=== PATIENT | male | born 1955 | race Caucasian/White ===

== ENCOUNTER 2017-02-27 14:02 | Inpatient (IN) | payer MEDICARE ==
--- OUTSIDE RECORDS SUMMARY | 2017-02-27 14:05 | XMS | Clinical Summary ---
:1955 Author Organization [facility] Address [address] [place] [address] Phone Care Team Providers Name Role Phone , Primary Care Provider Unavailable Allergies Not on File Current Medications Not on file Active Problems Not on file Social History Tobacco Use Types Packs/Day Years Used Date Never Assessed Sex Assigned at Date Recorded Not on file Last Filed Vital Signs Not on file Plan of Treatment Not on file Results Not on filefrom Last 3 Months
[2017-02-27] MEDS ORDERED: Lorazepam 2 MG/ML VIAL ONE (14:25)
[2017-02-27 14:48] LABS: #Lymphocytes 0.7 thou/uL (1.20-3.40); #Monocytes 0.5 thou/uL (0.11-0.59); #Neutrophils 2.9 thou/uL (1.40-6.50); %Basophils 0.1 % (0.0-1.0); %Eosinophils 0.2 % (0.0-10.0); %Monocytes 11.7 % (0.0-10.0); Hematocrit 35.3 % (42.0-52.0); Red Blood Cell (RBC) Count 3.59 mill/uL (4.70-6.10)
[2017-02-27 14:59] LABS: ALT (SGPT) 20 U/L (8-55); AST (SGOT) 40 U/L (5-34); Alkaline Phosphatase 94 U/L (40-150); Anion Gap 21 mmol/L (10-20); BUN (Urea Nitrogen) 8 mg/dL (8.4-25.7); Bilirubin, Total 0.8 mg/dL (0.2-1.2); Calc. Creatinine Clearance 0 mL/min (70-130); Calcium 9.6 mg/dL (7.8-10.44); Carbon Dioxide 22 mmol/L (23-31); Chloride 100 mmol/L (98-107); Estimated GFR-MDRD 75; Globulin 3.8 g/dL (2.4-3.5); Lipase 46 U/L (8-78); Protein, Total 7.6 g/dL (5.8-8.1)
--- NOTE | 2017-02-27 15:12 | RAD ---
PORTABLE CHEST 1 VIEW: Date: 02/27/17 Time: 1459 hours HISTORY: Bilateral lower extremity edema. FINDINGS: Comparison made with exam of 10/25/16. The heart size is normal. The aorta is tortuous. No focal areas of consolidation, pneumothorax, mikey k pulmonary edema, or pleural effusions are seen. IMPRESSION: No acute process. POS: OFF
[2017-02-27] MEDS ORDERED: Magnesium Sulfate 2 GM/100 ML BAG ONE (15:17)
[2017-02-27] MEDS ORDERED: Folic Acid 1 MG TAB ONE (15:17)
[2017-02-27] MEDS ORDERED: Bisacodyl 5 MG TAB PO PRN (16:48)
[2017-02-27] MEDS ORDERED: Senokot 8.6 MG TAB PO PRN (16:48)
[2017-02-27] MEDS ORDERED: Ondansetron HCl/PF 4 MG/2 ML Vial IVP PRN (16:48)
[2017-02-27] MEDS ORDERED: Mag-Al 1200 mg/1200 mg/30 ML UDCUP PO PRN (16:48)
[2017-02-27] MEDS ORDERED: Acetaminophen 325 MG TAB PO PRN (16:48)
[2017-02-27] MEDS ORDERED: Insulin Regular 300 UNITS/3 ML VIAL SC PRN (16:50)
[2017-02-27] MEDS ORDERED: Dextrose 50% Abboject 50 ML SYRINGE SLOW IVP PRN (16:50)
[2017-02-27] MEDS ORDERED: Dextrose 5% in Water 1,000 ML IV PRN (16:50)
[2017-02-27 16:58] LABS: Bilirubin Negative (Negative); Blood, Urine Negative (Negative); Glucose, Urine (Dipstick) 250 mg/dL (Negative); Ketone, Urine Negative (Negative); Nitrite Negative (Negative); Protein, Urine (Dipstick) Negative (Neg-Trace); Urobilinogen 0.2 mg/dL (0.2-1.0)
[2017-02-27 17:00] LABS: Bacteria/HPF None Seen HPF (None Seen); Hyaline Casts/LPF 0-3 HYALINE CAST LPF (0-3 Hyaline); RBC/HPF 0-3 HPF (0-3); Squamous Epithelial 0-3 HPF (0-3); WBC/HPF 0-3 HPF (0-3)
[2017-02-27 19:36] LABS: Troponin I 0.013 ng/mL (< 0.028)
[2017-02-27] MEDS ORDERED: traZODone HCl 50 MG TAB PO SCH (21:15)
[2017-02-27] MEDS: Famotidine 20 MG TAB PO SCH (22:01)
[2017-02-27] MEDS: Sodium Chloride 0.9% 1,000 ML IV SCH (22:01)
[2017-02-27] MEDS ORDERED: Gabapentin 300 MG CAP PO SCH (22:30)
[2017-02-27] MEDS ORDERED: Atenolol 50 MG TAB PO SCH (22:30)
[2017-02-27 22:43] LABS: Troponin I 0.018 ng/mL (< 0.028)
--- NOTE | 2017-02-28 05:50 | HP ---
CHIEF COMPLAINT: Tremors for the past couple of days. HISTORY OF PRESENT ILLNESS: This is a 61-year-old gentleman with a past medical history significant for alcohol abuse as well as hypertension, who presents to the hospital due tremors has been going on for the past couple of days. The patient states that he has been suffering with alcohol abuse fo r many, many years now. The patient states that he checked himself into [facility] approximately a couple of months ago in [place]. He states that he was there for a dot h and was released approximately 2 weeks ago. He states that he was doing well up until last where he was cleaning out his house and found some alcohol in his kitchen and at that point, deci ded to consume it. The patient states that it was not a lot, but there was some in the bottle for w hich he consumed. He states that approximately a couple of days later he began having tremors that began to get worse and was persistent. Because of that, he decided to come to the hospital for furt her evaluation and management. He denies any sweating, palpitations, confusion, dizziness, or any s yncopal episode. He also denies any nausea, vomiting, or diarrhea. Of note, the patient states that he has not been intubated in the past for alcohol withdrawals. PAST MEDICAL HISTORY: As stated. See history of present illness. Diabetes as well as diabetic liz ropathy. SOCIAL HISTORY: The patient as stated is an alcohol abuser had recently stopped approximately coupl e of months ago before relapsing few days ago. Denies any tobacco or recreational drug use. FAMILY HISTORY: Significant for hypertension. PAST SURGICAL HISTORY: Tonsillectomy as well as a gastric sleeve at 2010 and a left hip arthroplast y. HOME MEDICATIONS: treated at this time. ALLERGIES: No known drug allergies. REVIEW OF SYSTEMS: A 14-point review of systems was reviewed and was negative other than what was m entioned in the HPI. PHYSICAL EXAMINATION: VITAL SIGNS: Blood pressure is 114/70 was as high as 190s initially, but has improved to 114, heart rate is 81, respiratory rate is 18, temperature was 98.4. Patient is satting 95% oxygen on room ai r. GENERAL: The patient was in no apparent distress, was lying comfortably on the bed. Alert, awake, oriented x3. Significant tremors could be appreciated of his upper extremities. HEENT: Head: Normocephalic, atraumatic. Eyes: Pupils are round and reactive to light. Extraocul ar muscles were intact. Conjunctivae was pink. Sclerae was nonicteric. Mouth: Oral mucosa is pin k and moist. No erythema was noted. NECK: Soft and supple. No JVD, carotid bruits, or lymphadenopathy. CARDIOVASCULAR: Regular rate and rhythm. S1 and S2 sounds are heard. No S3, no S4, or murmurs. RESPIRATORY: Clear to auscultation bilaterally. No added sounds. ABDOMEN: Bowel sounds, soft, nontender, nondistended. EXTREMITIES: Pulses were 2+ both dorsalis and radial pulse. No pitting edema could be appreciated. Patient did have multiple toes amputated on right foot. LABORATORY AND DIAGNOSTIC DATA: White blood cell count 4.0, hemoglobin 12.0, hematocrit is 35.3, pl atelet count was 114,000, sodium was 138, potassium was 4.6, chloride was 100, bicarbonate was 22, B UN was 8, creatinine was 1.01, glucose was 232, phosphorus was 3.3, magnesium was 1.0, AST was 40, A LT was 20. CK-MB was 9.4 and troponin was 0.010. Chest x-ray did not show any acute abnormalities. ASSESSMENT AND PLAN: 1. Tremor secondary to alcohol withdrawals. Currently, hemodynamically stable. Patient is high ri sk for going into DTs. Patient has not been intubated in the past as stated. We will monitor the p atient closely. We will place the patient on telemetries. We will start the patient on CIWA protoc ol and monitor closely and keep a low threshold for intubation if required. We will also start the patient on IV fluids and banana bag. Start the patient on folate and thiamine. Fall precautions. Continue to application counselor the patient on alcohol cessation. The patient appeared to be doing very well an d had the right mindset about going into rehabilitation before this occurring, so we will continue t o support the patient as much as possible. 2. Thrombocytopenia secondary to alcohol abuse. We will monitor. 3. Hypomagnesium secondary to history of alcohol abuse with electrolyte replacement protocol. 4. Diabetes. We will place patient on sliding scale insulin protocol. 5. Elevated CK-MB, possibly secondary to the tremors. We will monitor accordingly at this time, th ere is no concern for any cardiac issues at this time. 6. Hypertension, currently controlled, p.r.n. blood pressure medications as needed. 7. Deep venous thrombosis prophylaxis. We will place the patient on Lovenox.
[2017-02-28 06:08] LABS: #Eosinphils 0.1 thou/uL (0.0-0.7); #Lymphocytes 1.2 thou/uL (1.20-3.40); #Monocytes 0.4 thou/uL (0.11-0.59); #Neutrophils 1.5 thou/uL (1.40-6.50); %Basophils 0.1 % (0.0-1.0); %Eosinophils 3.6 % (0.0-10.0); %Lymphocytes 37.3 % (21.0-51.0); %Monocytes 12.1 % (0.0-10.0); Hematocrit 38.5 % (42.0-52.0); Mean Platelet Volume 7.3 fL (7.4-10.4); Red Blood Cell (RBC) Count 3.86 mill/uL (4.70-6.10); White Blood Cell (WBC) Count 3.1 thou/uL (4.8-10.8)
[2017-02-28] MEDS: Sodium Chloride 0.9% 1,000 ML IV SCH ×2 (06:16→11:30)
[2017-02-28 06:25] LABS: Anion Gap 14 mmol/L (10-20); BUN (Urea Nitrogen) 7 mg/dL (8.4-25.7); Calc. Creatinine Clearance 103 mL/min (70-130); Carbon Dioxide 25 mmol/L (23-31); Chloride 103 mmol/L (98-107); Estimated GFR-MDRD 89; Magnesium 1.6 mg/dL (1.6-2.6)
[2017-02-28 06:37] LABS: Critical Call CKMBM RESULT DECREASING
[2017-02-28] MEDS ORDERED: FLU VACC QS2017-18 36 mo. & older 0.5 ML SYRINGE IM ONE (09:00)
[2017-02-28] MEDS ORDERED: Gabapentin 300 MG CAP PO SCH (09:00)
[2017-02-28] MEDS ORDERED: MULTIVITAMIN PO SCH (09:00)
[2017-02-28] MEDS: Aspirin 81 mg Enteric Coated Tablet PO SCH (09:24)
[2017-02-28] MEDS: glyBURIDE 5 MG TAB PO SCH (09:24)
[2017-02-28] MEDS: Atenolol 50 MG TAB PO SCH ×2 (09:25→20:52)
[2017-02-28] MEDS: Folic Acid 1 MG TAB PO SCH (09:26)
[2017-02-28] MEDS: Famotidine 20 MG TAB PO SCH ×2 (09:27→20:52)
[2017-02-28] MEDS: Enoxaparin Sodium 40 MG/0.4 ML SYRINGE SC SCH (09:27)
[2017-02-28] MEDS: Gabapentin 300 MG CAP PO SCH ×3 (09:27→20:52)
[2017-02-28] MEDS: Multivit, Therapeutic 1 TAB PO SCH (09:27)
--- NOTE | 2017-02-28 11:21 | PDOC.PN ---
- Subjective Encounter Start Date: 02/28/17 Encounter Start Time: 11:19 Subjective: feels shaky and cold -: denies any chest pain/sob - Objective MAR Reviewed: Yes Vital Signs & Weight: Vital Signs (12 hours) Temp Pulse Resp BP BP Pulse Ox 02/28/17 09:35 99.2 F 62 18 170/96 H 92 L 02/28/17 09:25 62 170/96 H 02/28/17 08:00 99.2 F 62 18 170/96 H 92 L 02/28/17 04:00 98.0 F 110 H 18 158/74 H 92 L 02/27/17 23:42 99.0 F 69 18 165/77 H 92 L Weight Weight 183 lb I&O: 02/27/17 02/28/17 03/01/17 06:59 06:59 06:59 Intake Total 1980 Output Total 800 Balance 1180 Result Diagrams: 02/28/17 05:43 02/28/17 05:43 Additional Labs: Accuchecks 02/28/17 05:38 POC Glucose 113 H Laboratory Tests 02/28/17 05:43 Magnesium 1.6 Radiology Reviewed by me: Yes (CXR- no CHF/infiltrates) Phys Exam - Physical Examination tremulous but awake and alert HEENT: PERRLA, moist MMs, sclera anicteric, oral pharynx no lesions Neck: no nodes, no JVD, supple, full ROM Respiratory: no wheezing, no rales, no rhonchi, clear to auscultation bilateral Cardiovascular: RRR, no significant murmur Gastrointestinal: soft, non-tender, no distention, positive bowel sounds Musculoskeletal: no edema, pulses present Neurological: non-focal, normal sensation, moves all 4 limbs Psychiatric: normal affect, A&O x 3 Skin: no rash Dx/Plan (1) Alcohol withdrawal syndrome Code(s): F10.239 - ALCOHOL DEPENDENCE WITH WITHDRAWAL, UNSPECIFIED Status: Acute Qualifiers: Complication of substance-induced condition: uncomplicated Qualified Code(s ): F10.230 - Alcohol dependence with withdrawal, uncomplicated (2) Chronic alcohol use Code(s): F10.10 - ALCOHOL ABUSE, UNCOMPLICATED Status: Chronic (3) History of prostate cancer Code(s): Z85.46 - PERSONAL HISTORY OF MALIGNANT NEOPLASM OF PROSTATE Status: Chronic Comment: Encouraged to continue with urology outpatient (4) Hypertension Code(s): I10 - ESSENTIAL (PRIMARY) HYPERTENSION Status: Chronic Qualifiers: Hypertension type: essential hypertension Qualified Code(s): I10 - Essential (primary) hypertension (5) Pancytopenia Code(s): D61.818 - OTHER PANCYTOPENIA Status: Chronic Comment: due to chronic ETOG abuse (6) Hypomagnesemia Code(s): E83.42 - HYPOMAGNESEMIA Status: Resolved - Plan out of bed/ambulate Add ASE protocol. PRN Ativan.Librium.monitor symptoms. -: cont Thiamine,FA,MV.home meds restarted -: wound care for chronic feet wounds due to DM -: restart Glipizide. add ISS ,accuchecks. -: stable. am labs * . Review of Systems - Review of Systems Constitutional: negative: Fever, Chills, Sweats, Weakness, Malaise, Other Respiratory: negative: Cough, Dry, Shortness of Breath, Hemoptysis, SOB with Excertion, Pleuritic Pain, Sputum, Wheezing Cardiovascular: negative: Chest Pain, Palpitations, Orthopnea, Paroxysmal Noc. Dyspnea, Edema, Light Headedness, Other Gastrointestinal: negative: Nausea, Vomiting, Abdominal Pain, Diarrhea, Constipation, Melena, Hematochezia, Other Genitourinary: negative: Dysuria, Frequency, Incontinence, Hematuria, Retention , Other Musculoskeletal: negative: Neck Pain, Shoulder Pain, Arm Pain, Back Pain, Hand Pain, Leg Pain, Foot Pain, Other Neurological: negative: Weakness, Numbness, Incoordination, Change in Speech, Confusion, Seizures, Other - Medications/Allergies Allergies/Adverse Reactions: Allergies Allergy/AdvReac Type Severity Reaction Status Date / Time No Known Drug Allergies Allergy Verified 02/14/16 17:27 Medications: Current Medications Acetaminophen (Tylenol) 650 mg PO Q6H PRN PRN Reason: Headache/Fever or Pain Al Hydroxide/Mg Hydroxide (Maalox) 30 ml PO Q6H PRN PRN Reason: Heartburn or Indigestion Aspirin (Ecotrin) 81 mg PO DAILY [facility] Last Admin: 02/28/17 09:24 Dose: 81 mg Atenolol (Tenormin) 50 mg PO BID [facility] Last Admin: 02/28/17 09:25 Dose: 50 mg Bisacodyl (Dulcolax) 10 mg PO DAILYPRN PRN PRN Reason: Constipation Chlordiazepoxide HCl (Librium) 25 mg PO TID [facility] Dextrose/Water (Dextrose 50%) 25 gm SLOW IVP PRN PRN PRN Reason: Hypoglycemia Enoxaparin Sodium (Lovenox) 40 mg SC 0900 [facility] Last Admin: 02/28/17 09:27 Dose: 40 mg Famotidine (Pepcid) 20 mg PO BID [facility] Last Admin: 02/28/17 09:27 Dose: 20 mg Folic Acid (Folvite) 1 mg PO DAILY [facility] Last Admin: 02/28/17 09:26 Dose: 1 mg Gabapentin (Neurontin) 300 mg PO TID [facility] Last Admin: 02/28/17 09:27 Dose: 300 mg Glucagon (Glucagon) 1 mg IM PRN PRN PRN Reason: Hypoglycemia Glyburide (Diabeta) 5 mg PO 0730 [facility] Last Admin: 02/28/17 09:24 Dose: 5 mg Hydralazine HCl (Apresoline) 10 mg SLOW IVP Q2H PRN PRN Reason: Blood Pressure Dextrose/Water (D5w) 1,000 mls @ 0 mls/hr IV .Q0M PRN; As Directed PRN Reason: Hypoglycemia Sodium Chloride (Normal Saline 0.9%) 1,000 mls @ 125 mls/hr IV .Q8H [facility] Last Admin: 02/28/17 06:16 Dose: 1,000 mls Insulin Human Regular (Humulin R) 0 units SC .MILD SLIDING SCALE PRN PRN Reason: Mild Correctional Scale Lorazepam (Ativan) 1 mg SLOW IVP Q4H PRN PRN Reason: Anxiety/Agitation Multivitamins (Theragran) 1 tab PO DAILY [facility] Last Admin: 02/28/17 09:27 Dose: 1 tab Ondansetron HCl (Zofran) 4 mg IVP Q6H PRN PRN Reason: Nausea/Vomiting Pantoprazole Sodium (Protonix) 40 mg PO DAILY [facility] Last Admin: 02/28/17 09:27 Dose: 40 mg Senna (Senokot) 2 tab PO HSPRN PRN PRN Reason: Constipation Sodium Chloride (Flush - Normal Saline) 10 ml IVF Q12HR [facility] Sodium Chloride (Flush - Normal Saline) 10 ml IVF PRN PRN PRN Reason: Saline Flush Trazodone HCl (Desyrel) 50 mg PO HS JOCELYNE
[2017-02-28] MEDS: Lorazepam 2 MG/ML VIAL SLOW IVP PRN ×3 (12:22→21:05)
[2017-02-28] MEDS: chlordiazePOXIDE HCl 25 MG CAP PO SCH ×2 (14:31→20:52)
[2017-02-28] MEDS: traZODone HCl 50 MG TAB PO SCH (20:52)
[2017-03-01 05:44] LABS: Anion Gap 15 mmol/L (10-20); BUN (Urea Nitrogen) 13 mg/dL (8.4-25.7); Calc. Creatinine Clearance 95 mL/min (70-130); Calcium 8.6 mg/dL (7.8-10.44); Carbon Dioxide 23 mmol/L (23-31); Chloride 104 mmol/L (98-107); Estimated GFR-MDRD 80
[2017-03-01] MEDS: Aspirin 81 mg Enteric Coated Tablet PO SCH (07:58)
[2017-03-01] MEDS: Folic Acid 1 MG TAB PO SCH (07:59)
[2017-03-01] MEDS: Gabapentin 300 MG CAP PO SCH ×3 (07:59→20:17)
[2017-03-01] MEDS: Famotidine 20 MG TAB PO SCH ×2 (07:59→20:19)
[2017-03-01] MEDS: chlordiazePOXIDE HCl 25 MG CAP PO SCH ×3 (07:59→20:17)
[2017-03-01] MEDS: Atenolol 50 MG TAB PO SCH ×2 (07:59→20:18)
[2017-03-01] MEDS: Multivit, Therapeutic 1 TAB PO SCH (08:00)
[2017-03-01] MEDS ORDERED: glyBURIDE 5 MG TAB PO SCH (08:00)
[2017-03-01] MEDS: Enoxaparin Sodium 40 MG/0.4 ML SYRINGE SC SCH (08:00)
[2017-03-01] MEDS: glyBURIDE 5 MG TAB PO SCH (08:00)
[2017-03-01] MEDS: Lorazepam 2 MG/ML VIAL SLOW IVP PRN ×2 (10:56→18:14)
--- NOTE | 2017-03-01 13:23 | PDOC.PN ---
- Subjective Encounter Start Date: 03/01/17 Encounter Start Time: 13:21 Subjective: had some hallucinations last night per nursing but pt minimizes -: he wants to go home and he very tearful today - Objective MAR Reviewed: Yes Vital Signs & Weight: Vital Signs (12 hours) Temp Pulse Resp BP BP Pulse Ox 03/01/17 12:49 135/78 03/01/17 11:00 97.8 F 67 16 165/78 H 96 03/01/17 08:00 97.8 F 67 16 134/79 95 03/01/17 07:59 70 134/79 03/01/17 07:57 97.6 F 70 16 134/79 95 03/01/17 04:00 97.8 F 69 18 166/78 H 172/84 H 94 L Weight Weight 180 lb 4.8 oz I&O: 02/28/17 03/01/17 03/02/17 06:59 06:59 06:59 Intake Total 3800 Output Total 2200 Balance 1600 Result Diagrams: 02/28/17 05:43 03/01/17 04:36 Additional Labs: Accuchecks 03/01/17 02/28/17 02/28/17 06:01 21:43 20:23 POC Glucose 74 88 55 L* 02/28/17 02/28/17 17:29 16:44 POC Glucose 124 H 54 L* Microbiology 02/27/17 14:42 Venous blood - Right Hand Blood Culture - Preliminary Specimen has been received and culture in progress. No Growth to date. 02/27/17 14:42 Venous blood - Left Hand Blood Culture - Preliminary Specimen has been received and culture in progress. No Growth to date. Laboratory Tests 02/27/17 02/27/17 02/27/17 14:23 14:25 18:57 CK-MB (CK-2) 9.4 H* Troponin I 0.010 0.013 B-Natriuretic Peptide Lipase 46 02/27/17 02/28/17 02/28/17 22:10 05:43 11:34 CK-MB (CK-2) 7.6 H* Troponin I 0.018 B-Natriuretic Peptide 331.5 H Lipase Phys Exam - Physical Examination Constitutional: NAD shaky but AAOX4 HEENT: PERRLA, moist MMs, sclera anicteric, oral pharynx no lesions Neck: no nodes, no JVD, supple, full ROM Respiratory: no wheezing, no rales, no rhonchi, clear to auscultation bilateral Cardiovascular: RRR, no significant murmur Gastrointestinal: soft, non-tender, no distention, positive bowel sounds Musculoskeletal: no edema, pulses present L elbow chr erythema w/o active discharge/wound Neurological: non-focal, normal sensation, moves all 4 limbs Psychiatric: A&O x 3 Deviation from normal: anxious Dx/Plan (1) Alcohol withdrawal syndrome Code(s): F10.239 - ALCOHOL DEPENDENCE WITH WITHDRAWAL, UNSPECIFIED Status: Acute Qualifiers: Complication of substance-induced condition: uncomplicated Qualified Code(s ): F10.230 - Alcohol dependence with withdrawal, uncomplicated (2) Chronic alcohol use Code(s): F10.10 - ALCOHOL ABUSE, UNCOMPLICATED Status: Chronic (3) History of prostate cancer Code(s): Z85.46 - PERSONAL HISTORY OF MALIGNANT NEOPLASM OF PROSTATE Status: Chronic Comment: Encouraged to continue with urology outpatient (4) Hypertension Code(s): I10 - ESSENTIAL (PRIMARY) HYPERTENSION Status: Chronic Qualifiers: Hypertension type: essential hypertension Qualified Code(s): I10 - Essential (primary) hypertension (5) Pancytopenia Code(s): D61.818 - OTHER PANCYTOPENIA Status: Chronic Comment: due to chronic ETOG abuse (6) Hypomagnesemia Code(s): E83.42 - HYPOMAGNESEMIA Status: Resolved (7) Hypoglycemia Code(s): E16.2 - HYPOGLYCEMIA, UNSPECIFIED Status: Acute - Plan out of bed/ambulate, DVT proph w/SCDs cont ASE protocol.clinically better.cont prn ativan & TID Librium. -: check Urine Cx,blood cx given hypoglycemia to r/o infection.no Abx for now -: brandan [place] kevin elater today w HH if arrnaged. -: Pt had good family & friend support * . Review of Systems - Review of Systems Constitutional: negative: Fever, Chills, Sweats, Weakness, Malaise, Other Respiratory: negative: Cough, Dry, Shortness of Breath, Hemoptysis, SOB with Excertion, Pleuritic Pain, Sputum, Wheezing Cardiovascular: negative: Chest Pain, Palpitations, Orthopnea, Paroxysmal Noc. Dyspnea, Edema, Light Headedness, Other Gastrointestinal: negative: Nausea, Vomiting, Abdominal Pain, Diarrhea, Constipation, Melena, Hematochezia, Other Genitourinary: negative: Dysuria, Frequency, Incontinence, Hematuria, Retention , Other Musculoskeletal: negative: Neck Pain, Shoulder Pain, Arm Pain, Back Pain, Hand Pain, Leg Pain, Foot Pain, Other Neurological: negative: Weakness, Numbness, Incoordination, Change in Speech, Confusion, Seizures, Other - Medications/Allergies Allergies/Adverse Reactions: Allergies Allergy/AdvReac Type Severity Reaction Status Date / Time No Known Drug Allergies Allergy Verified 02/14/16 17:27 Medications: Current Medications Acetaminophen (Tylenol) 650 mg PO Q6H PRN PRN Reason: Headache/Fever or Pain Al Hydroxide/Mg Hydroxide (Maalox) 30 ml PO Q6H PRN PRN Reason: Heartburn or Indigestion Aspirin (Ecotrin) 81 mg PO DAILY [facility] Last Admin: 03/01/17 07:58 Dose: 81 mg Atenolol (Tenormin) 50 mg PO BID [facility] Last Admin: 03/01/17 07:59 Dose: 50 mg Bisacodyl (Dulcolax) 10 mg PO DAILYPRN PRN PRN Reason: Constipation Chlordiazepoxide HCl (Librium) 25 mg PO TID [facility] Last Admin: 03/01/17 07:59 Dose: 25 mg Dextrose/Water (Dextrose 50%) 25 gm SLOW IVP PRN PRN PRN Reason: Hypoglycemia Enoxaparin Sodium (Lovenox) 40 mg SC 0900 [facility] Last Admin: 03/01/17 08:00 Dose: 40 mg Famotidine (Pepcid) 20 mg PO BID [facility] Last Admin: 03/01/17 07:59 Dose: 20 mg Folic Acid (Folvite) 1 mg PO DAILY [facility] Last Admin: 03/01/17 07:59 Dose: 1 mg Gabapentin (Neurontin) 300 mg PO TID [facility] Last Admin: 03/01/17 07:59 Dose: 300 mg Glucagon (Glucagon) 1 mg IM PRN PRN PRN Reason: Hypoglycemia Hydralazine HCl (Apresoline) 10 mg SLOW IVP Q2H PRN PRN Reason: Blood Pressure Dextrose/Water (D5w) 1,000 mls @ 0 mls/hr IV .Q0M PRN; As Directed PRN Reason: Hypoglycemia Insulin Human Regular (Humulin R) 0 units SC .MILD SLIDING SCALE PRN PRN Reason: Mild Correctional Scale Lorazepam (Ativan) 1 mg SLOW IVP Q4H PRN PRN Reason: Anxiety/Agitation Last Admin: 03/01/17 10:56 Dose: 1 mg Multivitamins (Theragran) 1 tab PO DAILY [facility] Last Admin: 03/01/17 08:00 Dose: 1 tab Ondansetron HCl (Zofran) 4 mg IVP Q6H PRN PRN Reason: Nausea/Vomiting Pantoprazole Sodium (Protonix) 40 mg PO DAILY [facility] Last Admin: 03/01/17 07:59 Dose: 40 mg Senna (Senokot) 2 tab PO HSPRN PRN PRN Reason: Constipation Sodium Chloride (Flush - Normal Saline) 10 ml IVF Q12HR [facility] Last Admin: 03/01/17 08:00 Dose: 10 ml Sodium Chloride (Flush - Normal Saline) 10 ml IVF PRN PRN PRN Reason: Saline Flush Last Admin: 02/28/17 12:24 Dose: 10 ml Thiamine HCl (Thiamine) 100 mg PO DAILY [facility] Last Admin: 03/01/17 10:18 Dose: 100 mg Trazodone HCl (Desyrel) 50 mg PO HS [facility] Last Admin: 02/28/17 20:52 Dose: 50 mg
[2017-03-01 15:57] VITALS: BMI 25.8
[2017-03-01] MEDS: traZODone HCl 50 MG TAB PO SCH (20:17)
[2017-03-02 04:24] VITALS: TEMP 98.1
[2017-03-02 05:42] LABS: #Eosinphils 0.1 thou/uL (0.0-0.7); #Lymphocytes 1.1 thou/uL (1.20-3.40); #Monocytes 0.4 thou/uL (0.11-0.59); #Neutrophils 2.6 thou/uL (1.40-6.50); %Basophils 0.6 % (0.0-1.0); %Eosinophils 3.2 % (0.0-10.0); %Lymphocytes 26.7 % (21.0-51.0); %Monocytes 9.3 % (0.0-10.0); Hematocrit 38.1 % (42.0-52.0); Mean Platelet Volume 7.1 fL (7.4-10.4); Red Blood Cell (RBC) Count 3.75 mill/uL (4.70-6.10); White Blood Cell (WBC) Count 4.2 thou/uL (4.8-10.8)
[2017-03-02 05:56] LABS: Anion Gap 14 mmol/L (10-20); BUN (Urea Nitrogen) 16 mg/dL (8.4-25.7); Calc. Creatinine Clearance 104 mL/min (70-130); Calcium 8.4 mg/dL (7.8-10.44); Carbon Dioxide 21 mmol/L (23-31); Chloride 106 mmol/L (98-107); Estimated GFR-MDRD Greater than 90
[2017-03-02] MEDS ORDERED: diphenhydrAMINE HCl/Zinc Acet 2% Cream 28.4 gm Tube TOP PRN (09:06)
[2017-03-02] MEDS: Gabapentin 300 MG CAP PO SCH ×2 (09:19→14:23)
[2017-03-02] MEDS: Atenolol 50 MG TAB PO SCH (09:19)
[2017-03-02] MEDS: Famotidine 20 MG TAB PO SCH (09:19)
[2017-03-02] MEDS: Aspirin 81 mg Enteric Coated Tablet PO SCH (09:19)
[2017-03-02] MEDS: chlordiazePOXIDE HCl 25 MG CAP PO SCH ×2 (09:19→14:23)
[2017-03-02] MEDS: Multivit, Therapeutic 1 TAB PO SCH (09:19)
[2017-03-02] MEDS: Folic Acid 1 MG TAB PO SCH (09:19)
[2017-03-02] MEDS: Enoxaparin Sodium 40 MG/0.4 ML SYRINGE SC SCH (09:20)
[2017-03-02 13:27] VITALS: BP 142/70
--- NOTE | 2017-03-02 17:20 | DIS ---
DATE OF ADMISSION: 02/27/2017 DATE OF DISCHARGE: 03/02/2017 CONDITION AT THE TIME OF DISCHARGE: Stable and improved. PRIMARY CARE PHYSICIAN: Danny Lu MD DISCHARGE DIAGNOSES: 1. Alcohol withdrawal. 2. Anxiety. 3. Chronic thrombocytopenia due to chronic alcohol use. 4. History of prostate cancer. 5. Hypertension. 6. Hypomagnesemia, resolved. 7. Hypoglycemia, resolved. DISCHARGE MEDICATIONS: Ativan 1 mg every 2-4 hours as needed for withdrawal symptoms. Next, taperi ng doses of Librium orally. Resume home medications as follows; Tenormin 50 mg p.o. b.i.d., glyburi de 5 mg daily, gabapentin 300 mg p.o. daily, folic acid 1 mg daily, aspirin 81 mg daily, Protonix 40 mg daily, ferrous sulfate 325 mg daily, and multivitamin daily. CONSULTATIONS: None. PROCEDURES DONE IN THE HOSPITAL: Chest x-ray, which is negative for any effusion, edema or infiltra te upon admission. ADMISSION HISTORY: Mr. Tran is a 61-year-old male with history of alcohol abuse, depressi on, and hypertension, who presented to the ER for complaints of tremor. He unfortunately finished h is rehabilitation, but relapsed when he found a bottle of alcohol cleaning his kitchen. Because of the tremors which were getting worse and were persistent, he presented to the ER. He was hemodynami abbey stable upon presentation. He did have platelet count of 114,000; with a WBC of 4 and hemoglob in of 12 on presentation. CK-MB was 9.4. Troponin was 0.010. Magnesium was 1. He was admitted wi th a presumptive diagnosis of tremors secondary to alcohol withdrawal to prevent DT's. He was admit jessenia initially to telemetry unit and was started on ASE protocol. He had slow improvement. He had s ome episodes of hypoglycemia while in the hospital, was recovered after oral juice, etc. Because of the shaking and trace leukocyte esterase in his urine and the hypoglycemia, urine culture was order ed for him which is pending at this time. His initial urine culture, blood cultures are negative ti ll date. He will follow up with his primary care physician for the final results. He was seen and examined prior to discharge. PHYSICAL EXAMINATION: Include; VITAL SIGNS: Temperature 98.1, pulse rate 98, respirations 20, saturating 99% on room air, blood pr essure 138/71. GENERAL: No acute distress, awake, alert, oriented x3, he is not as shaky as yesterday. He appears to be in good spirits. CHEST: Clear to auscultation without any wheezing, rales or rhonchi. HEART: Rate, rhythm is regular without any murmur, rubs, or gallops. ABDOMEN: Soft, nontender, nondistended with positive bowel sounds. NEUROLOGIC: Nonfocal. LABORATORY EXAMINATION: 1. Blood culture and urine culture negative till date. 2. CBC shows WBCs at 4.2, hemoglobin 12.0 with high MCV and MCH. Platelet count 103,000. Serum ch emistries unremarkable. Discharge plan was discussed with the patient, who verbalized understanding. Home health was arrang ed for him. He has chronic lower extremity diabetic wound. He needs to see his primary care physic case as he has not been seen in a few months to qualify for the home health. The patient was made aw are of this and he will go see Dr. Lu as soon as possible so that home health can continue to ca re for him with physical therapy, occupation therapy, wound care and halfway. The patient h as good family support in the form of his brother and his family and [facility]. He declined offers to go live with his family and he did not qualify for nursing or rehab.
== END 2017-03-02 15:40 | disposition home health service (06) | DRG 897 ==
LOC: ERS 14:02 → 2NO 16:05
PROVIDERS: ADMIT Internal Medicine; ATTEND Internal Medicine
DX: F10.239 Alcohol dependence with withdrawal, unspecified (principal); D61.818 Other pancytopenia; E11.40 Type 2 diabetes mellitus with diabetic neuropathy, unspecified; E11.649 Type 2 diabetes mellitus with hypoglycemia without coma; D69.6 Thrombocytopenia, unspecified; E83.42 Hypomagnesemia; I10 Essential (primary) hypertension; Z98.84 Bariatric surgery status; F41.9 Anxiety disorder, unspecified; G25.2 Other specified forms of tremor; Z85.46 Personal history of malignant neoplasm of prostate; Z23 Encounter for immunization
CPT/HCPCS: 36415; 36416; 71010; 80048; 80053; 81003; 81015; 82553; 83690; 83735; 83880; 84100; 84484; 85025; 87040; 87086; 90471; 90682; 90732; 93005; 96361; 96365; 96366; 96368; 96375; A4216; G0008; G0009; G8978-GP-CI; G8979-GP-CH; J1650; J2060; J3411; J3475; J7050; Q2036

== ENCOUNTER 2017-03-13 08:58 | Inpatient (IN) | payer MEDICARE ==
[2017-03-13] MEDS ORDERED: Lorazepam 2 MG/ML VIAL ONE (09:26)
[2017-03-13] MEDS ORDERED: Metoprolol Tartrate 5 MG/5 ML VIAL ONE (09:35)
[2017-03-13 10:00] LABS: #Monocytes 0.4 thou/uL (0.11-0.59); #Neutrophils 5.4 thou/uL (1.40-6.50); %Basophils 0.6 % (0.0-1.0); %Eosinophils 0.3 % (0.0-10.0); %Monocytes 6.2 % (0.0-10.0); Hematocrit 34.9 % (42.0-52.0); Mean Platelet Volume 6.3 fL (7.4-10.4); Red Blood Cell (RBC) Count 3.44 mill/uL (4.70-6.10); White Blood Cell (WBC) Count 6.9 thou/uL (4.8-10.8)
[2017-03-13 10:15] LABS: ALT (SGPT) 16 U/L (8-55); AST (SGOT) 22 U/L (5-34); Alkaline Phosphatase 108 U/L (40-150); Anion Gap 19 mmol/L (10-20); BUN (Urea Nitrogen) 8 mg/dL (8.4-25.7); Bilirubin, Total 0.4 mg/dL (0.2-1.2); CK (CPK) 194 U/L (30-200); Calc. Creatinine Clearance 0 mL/min (70-130); Calcium 8.7 mg/dL (7.8-10.44); Carbon Dioxide 17 mmol/L (23-31); Chloride 110 mmol/L (98-107); Estimated GFR-MDRD 69; Globulin 3.7 g/dL (2.4-3.5); Lipase 43 U/L (8-78); Protein, Total 7.2 g/dL (5.8-8.1)
[2017-03-13 10:20] LABS: Troponin I Less than 0.010 ng/mL (< 0.028)
--- NOTE | 2017-03-13 10:34 | RAD ---
CHEST 1 VIEW: Date: 03/13/17 HISTORY: Syncope. COMPARISON: Chest 1 view dated 02/27/17. FINDINGS: Heart size is mildly enlarged. There are nodular densities projecting over the right and left mid gaurang ng. There appears to be an old anterior left 5th rib fracture. Heart size upper limits of normal. No focal air space consolidation or pneumothorax. IMPRESSION: 1. Mild cardiomegaly. Otherwise no acute intrathoracic abnormality. 2. Nodular densities projecting over the right upper lobes bilaterally may reflect granulomas. Foll ow-up examination of the chest in 6 months recommended. POS: MED
[2017-03-13] MEDS ORDERED: Vancomycin HCl 1.25 GM, Admixture Fee 1 EACH in Sodium Chloride 0.9% 250 ML 250 ML IVPB SCH (11:15)
[2017-03-13] MEDS ORDERED: Dextrose 5% in Water 1,000 ML IV PRN (13:00)
[2017-03-13] MEDS ORDERED: Dextrose 50% Abboject 50 ML SYRINGE SLOW IVP PRN (13:00)
--- NOTE | 2017-03-13 13:28 | PDOC.EVN ---
Event Note - Event Note Event Note: H&P: [id number] Syncope with Collapse 2/2 LLE Cellulitis with Sepsis, Alcohol withdrawl and resultant Afib with RVR * ECHO * trend cardiac ezymes * consult cardiology * check CT brain * check carotid dopplers * Fall precautions * PT/OT * Blood cxs * Urine cx * Emperic Abx: Vanco and Zosyn * ASE protocol with ativan prn for alcohol withdrwal; MVI/thiamine/folate * start IVFs * check labs in AM B/L RUL Granulomas * f/u outpt DM2 * SSI * f/u accu checks Admit to ICU.
[2017-03-13] MEDS ORDERED: Sodium Chloride 0.9% 1,000 ML IV SCH (13:30)
[2017-03-13] MEDS ORDERED: Loperamide HCl 2 MG CAP PO PRN ×2 (13:54→17:03)
[2017-03-13] MEDS ORDERED: HYDROcodone/Acetaminophen 5/325 mg Tablet PO PRN (14:02)
[2017-03-13] MEDS ORDERED: Acetaminophen 325 MG TAB PO PRN (14:02)
[2017-03-13] MEDS ORDERED: Ondansetron HCl/PF 4 MG/2 ML Vial IVP PRN (14:02)
[2017-03-13 14:26] VITALS: BMI 27.0
[2017-03-13] MEDS: Gabapentin 300 MG CAP PO SCH ×2 (15:51→22:08)
[2017-03-13] MEDS: chlordiazePOXIDE HCl 25 MG CAP PO SCH ×2 (15:51→22:07)
--- NOTE | 2017-03-13 17:47 | ULT ---
ULTRASOUND WITH DOPPLER DUPLEX VENOUS LOWER EXTREMITY LEFT 03/13/17 CPT: 72476 ICD-10-PCS: [id number] HISTORY: Pain, edema. TECHNIQUE: Color flow Doppler, spectral waveform analysis of pulsed Doppler, and linda-scale imaging with compre ssion and augmentation, were used to evaluate the left common femoral, femoral, popliteal, posterior tibial, and superficial femoral, veins; and the proximal portions of the profunda femoral and great er saphenous, veins. FINDINGS: Appropriate compressibility and flow within the imaged deep vein system left lower extremity. IMPRESSION: No DVT. Soft tissue edema. Correlate clinically. POS: [facility]
--- NOTE | 2017-03-13 17:52 | ULT ---
CAROTID ULTRASOUND WITH LLAMAS SCALE AND DOPPLER DUPLEX COLOR FLOW IMAGING SPECTRAL ANALYSIS PERFORMED: CLINICAL INDICATION: Syncope. Collapse. FINDINGS: There is mild intimal thickening atherosclerotic calcification of the carotid arteries. PEAK SYSTOLIC VELOCITY (CM/S): Right CCA 93 Left CCA 100 Right ICA 54 Left ICA 58 There is antegrade flow within the visualized bilateral vertebral arteries. IMPRESSION: 1. No hemodynamically significant stenosis of the right internal carotid artery. 2. No hemodynamically significant stenosis of the left internal carotid artery. POS: GONZÁLEZ
[2017-03-13] MEDS: Piperacillin/Tazobactam 3.375 GM in Sodium Chloride 0.9% 100 ML IVPB SCH ×2 (17:56→23:18)
--- NOTE | 2017-03-13 18:47 | HP ---
DATE OF ADMISSION: 03/13/2017, at 1:18 p.m. CHIEF COMPLAINT: Generalized weakness. HISTORY OF PRESENT ILLNESS: This is a 61-year-old male with a past medical history of alcohol abuse who presented for generalized weakness with syncope and collapse. The patient reports that he has a history of alcohol abuse and he went to [facility] in [place] 1 month ago to complete an alc ohol rehab, but during that one month period, he has had some alcohol intake. He is unable to quant sada. He reports that his last drink was approximately 2 days ago. Today after he had a bowel movem ent, he stood up in his bathroom to reach for his walker and collapsed. He believes that he was unc onscious for approximately 2 hours. Once he woke up, he crawled into the next room to retrieve his cell phone and called 911. EMS transported the patient from his home to the ER today. The patient reports left lower extremity pain and redness and reports this redness has been ongoing for a few days. He does have a history of first and second left toe amputations in 05/2016. In the emergency room, he was found to have AFib with RVR and denied any history of atrial fibrillat ion. The patient does report generalized weakness. Does not report any headaches, blurry vision or troub le with speech. He also denies any urinary symptoms. REVIEW OF SYSTEMS: A 14-point review of systems is negative except as otherwise indicated above in the HPI. PAST MEDICAL HISTORY: 1. Diabetes mellitus type 2 with diabetic neuropathy. 2. Alcohol abuse, status post [facility] in [place] 1 month ago, but lynn s been drinking intermittently since being released. PAST SURGICAL HISTORY: His most recent surgeries were his first and second left toe amputation in 0 05/2016. FAMILY HISTORY: The patient does report a family history of cardiac disease as his brother has 2 ca rdiac stents. SOCIAL HISTORY: The patient does drink alcohol as outlined above. He denies any tobacco or illicit drug use. ALLERGIES AND MEDICATIONS: Reviewed. Please refer to chart for details. PHYSICAL EXAMINATION: VITAL SIGNS: Reviewed, please refer to chart for details. GENERAL: Patient was sitting comfortably in bed when I entered the room in no acute distress. HEENT: Normocephalic and atraumatic. NECK: Supple. No rigidity. LYMPH NODES: No cervical or supraclavicular lymphadenopathy. CARDIOVASCULAR: S1 and S2 are audible, irregularly irregular rhythm and rapid rate of 140. LUNGS: Clear to auscultation bilaterally with no wheezes, rales or rhonchi. ABDOMEN: Soft and nontender. Positive bowel sounds. No guarding, rebound or rigidity. GENITOURINARY: No CVA tenderness bilaterally. No suprapubic tenderness either. MUSCULOSKELETAL: No calf tenderness on the right, but the patient does have a left lower extremity tenderness from the knee down to his toes. He does have first and second toe amputations. He also has left lower extremity edema. SKIN: Aside from the changes of the left lower extremity, it is warm with dry mucous membranes. PSYCHIATRIC: Appropriate, cooperative. NEUROLOGIC: Alert and oriented x2. The patient does not know the year. His judgment appears intac t. Cranial nerves II-XII are grossly intact. LABORATORY AND IMAGING: Reviewed. Please refer the chart for details. ASSESSMENT AND PLAN: This is a 61-year-old male who presented for generalized weakness with syncope and collapse. 1. Syncope and collapse, likely secondary to left lower extremity cellulitis with sepsis and atrial fibrillation with rapid ventricular response in association with alcohol withdrawal. We will check blood and urine cultures, start empiric antibiotics with vancomycin and Zosyn. TSH is within maria alejandra l limits. I will check a CT with and without contrast of the left lower extremity to rule out osteo myelitis. I will check an echocardiogram, consult Cardiology, start Cardizem drip and start BUCK pro tocol with Ativan as need for alcohol withdrawal. The patient's alcohol level was not elevated on a dmission. Fall precautions will be placed. Consult physical therapy and occupational therapy. Sta rt IV fluids and check labs in the morning. 2. Atrial fibrillation with rapid ventricular response secondary to alcohol withdrawal and infectio n as above. Please see above for workup and plan. 3. Bilateral right upper lobe granulomas seen on chest x-ray. We will need close outpatient follow up. 4. Diabetes mellitus. Start sliding scale insulin. Follow up Accu-Cheks a.c. and at bedtime. 5. Physical debility. We will consult PT and OT as above. 6. Admit to ICU.
[2017-03-13] MEDS: Mometasone/Formoterol 120 PUFF INHALER INH SCH (19:09)
[2017-03-13] MEDS: Atenolol 50 MG TAB PO SCH (22:07)
[2017-03-13] MEDS: Clindamycin/D5W 600 MG in Premix Bag 1 BAG IVPB SCH (22:08)
[2017-03-13] MEDS: Lorazepam 1 MG TAB PO PRN (22:10)
--- NOTE | 2017-03-14 03:01 | CON ---
DATE OF CONSULTATION: 03/13/2017 CARDIOLOGY CONSULTATION REASON FOR CONSULTATION: Atrial fibrillation. HISTORY OF PRESENT ILLNESS: Mr. Tran is a 61-year-old man. He presented to the hospital with weakn ess, fatigue, and collapse. Patient recently has been in the hospital with alcohol rehabilitation related to alcohol abuse. He was in the rehab facility for alcohol withdrawal and apparently he has been on for about a month, bu t he did drink some alcohol in the last month. He developed some cellulitis as an outpatient. The day of admission which is today, he stood up and loss of consciousness. He was unconscious for a co uple of hours. When he awoke, he called to the next room, got a cell phone and called 911 they brou ght him here. He is in atrial fibrillation. He was also found to have cellulitis. PAST MEDICAL HISTORY: Multiple infections as outlined by Dr. Fay. PAST MEDICAL HISTORY: 1. Diabetes. 2. Alcohol abuse. PAST SURGICAL HISTORY: He has previous second left toe amputation. FAMILY HISTORY: He does report a family history of cardiac disease and brother with 2 cardiac stent s. SOCIAL HISTORY: Alcohol dependency. MEDICATIONS: He was on atenolol prior to this admission. The medication is also on Naprosyn. He i s currently on diltiazem, who apparently is on atenolol 50 mg twice a day at home, also on Neurontin and insulin. REVIEW OF SYSTEMS: Constitutional: No significant weight gain or loss. Vision: No changes. Hear ing: No changes. Pulmonary: No cough or wheezing. Gastrointestinal: No nausea, vomiting, diarrh ea. Skin: No rashes. Neurologic: No unilateral weakness or numbness. Psychiatric: No unusual d epression or anxiety. Hematologic: No unusual bruising. Genitourinary: No burning with urination . PHYSICAL EXAMINATION: GENERAL: This is a pleasant 61-year-old gentleman looks older than his chronologic age. VITAL SIGNS: Blood pressure 140/80, pulse is 110-130 irregularly irregular, atrial fibrillation. HEENT: Eyes, sclerae nonicteric. Mouth, mucous membranes moist. NECK: Supple, no lymphadenopathy. LUNGS: Clear. CARDIAC: Irregularly irregular. No murmur, rub, or gallop. ABDOMEN: Soft, nontender. EXTREMITIES: No clubbing, cyanosis. There is moderate edema in the left lower extremity, mild on t he right. SKIN: The left extremity, the skin is very warm, even hot, and reddish. PERTINENT LABORATORY AND X-RAY FINDINGS: Hemoglobin is 11.2. Creatinine is 1.08. ASSESSMENT: 1. New-onset atrial fibrillation. 2. Probable cellulitis, possibly some sepsis. 3. History of alcoholism. PLAN: 1. Continue beta blockers. 2. Increase calcium channel blockers. 3. We will need to be anticoagulated. 4. We will give diuretics to see if we can try to get some of the fluid off, that probably will hel p with cellulitis. 5. Blood counts are stable tomorrow. We would likely start full-dose enoxaparin.
[2017-03-14] MEDS: Lorazepam 1 MG TAB PO PRN (04:24)
[2017-03-14 04:54] LABS: #Eosinphils 0.1 thou/uL (0.0-0.7); #Lymphocytes 1.4 thou/uL (1.20-3.40); #Monocytes 0.6 thou/uL (0.11-0.59); #Neutrophils 4.9 thou/uL (1.40-6.50); %Basophils 0.1 % (0.0-1.0); %Lymphocytes 19.5 % (21.0-51.0); %Monocytes 8.2 % (0.0-10.0); Hematocrit 34.2 % (42.0-52.0); Mean Platelet Volume 6.8 fL (7.4-10.4); Red Blood Cell (RBC) Count 3.36 mill/uL (4.70-6.10)
[2017-03-14 05:05] LABS: Anion Gap 12 mmol/L (10-20); BUN (Urea Nitrogen) 7 mg/dL (8.4-25.7); Calc. Creatinine Clearance 104 mL/min (70-130); Calcium 8.4 mg/dL (7.8-10.44); Carbon Dioxide 21 mmol/L (23-31); Chloride 109 mmol/L (98-107); Estimated GFR-MDRD 87; Iron 84 ug/dL (65-175); Magnesium 1.1 mg/dL (1.6-2.6)
[2017-03-14] MEDS: Clindamycin/D5W 600 MG in Premix Bag 1 BAG IVPB SCH ×3 (05:30→21:59)
[2017-03-14] MEDS: Piperacillin/Tazobactam 3.375 GM in Sodium Chloride 0.9% 100 ML IVPB SCH ×3 (05:31→18:31)
[2017-03-14] MEDS: Furosemide 20 MG/2 ML VIAL SLOW IVP SCH ×2 (05:31→14:35)
--- NOTE | 2017-03-14 06:08 | CON ---
DATE OF CONSULTATION: 03/13/2017 HISTORY OF PRESENT ILLNESS: This is a 61-year-old gentleman who comes into the hospital after he lynn d syncopal episode following diarrhea. His left leg has been markedly erythematous and swollen. The patient apparently has a history of heavy drinking, 10 drinks per day. Apparently, he is having withdrawal shakes. Additionally, he said he was wheezing. He has never wheezed like this for a long time. As a chil d, he had asthma. He is a nonsmoker. PAST MEDICAL HISTORY: Pertinent for diabetes, cellulitis, prostate cancer, hypertension. PAST SURGICAL HISTORY: Left hip infected, amputation of his left great toe and small toes. MEDICATIONS FROM HOME: Includes gabapentin, glyburide, and atenolol. He received several antibioti cs from his primary care physician including Omnicef and vitamins. SOCIAL AND FAMILY HISTORY: He used to work in [employer], never been . PHYSICAL EXAMINATION: VITAL SIGNS: Blood pressure 141/92, pulse 80, respiratory rate 18. He is afebrile. CHEST: Decreased breath sounds without any wheezing. CARDIAC: Normal S1, S2. No gallops. ABDOMEN: Soft. No masses. EXTREMITIES: His left leg is swollen and erythematous from the knee all the way down to his ankle. LABORATORY DATA: White count is 6000, H\T\H is 11 and 34, platelet count is 269. Electrolytes are normal. Thyroid function is normal. IMPRESSION: 1. Cellulitis, left leg. 2. Syncope, awaiting carotid Doppler ultrasound. 3. Alcohol abuse, probably he is going to delirium tremens. 4. History of asthma with recent exacerbation. PLAN: I have added clindamycin, continue supportive care, ordered stool for C. diff since he is sti ll having diarrhea. Additionally, I have added Dulera to his regimen. We will follow while in the ICU.
[2017-03-14] MEDS: Mometasone/Formoterol 120 PUFF INHALER INH SCH ×2 (07:01→18:13)
--- NOTE | 2017-03-14 08:18 | CT ---
PRELIMINARY REPORT/[facility]/EMERGENCY AFTER HOURS PROCEDURE: EXAM: CT Head Without Intravenous Contrast CLINICAL HISTORY: 61 years old, male; Signs and symptoms; Syncope and collapse; Patient HX: Syncopal episode TECHNIQUE: Axial computed tomography images of the head/brain without intravenous contrast. COMPARISON: No relevant prior studies available. FINDINGS: Brain: Mild diffuse atrophy. No hemorrhage. No significant white matter disease. No edema. Ventricles: Normal. Bones/joints: Unremarkable. No acute fracture. Soft tissues: Normal. Sinuses: Unremarkable. Mastoid air cells: Unremarkable. No mastoid effusion. IMPRESSION: No acute findings. Thank you for allowing us to participate in the care of your patient. Dictated and Authenticated by: Chan Gonzalez MD 03/14/2017 4:37 AM Central Time ([place] \T\ [place]) FINAL REPORT EMERGENCY AFTER HOURS CT HEAD WITHOUT IV CONTRAST: Date: 03/14/17 HISTORY: Syncope with collapse. COMPARISON: 02/01/16. IMPRESSION: 1. No acute intracranial abnormality is demonstrated. 2. Stable cerebral volume loss. Findings are in agreement with the preliminary report by Janee. POS: GONZÁLEZ
[2017-03-14] MEDS: Ferrous Sulfate 325 MG TAB PO SCH (08:20)
[2017-03-14] MEDS: Atenolol 50 MG TAB PO SCH ×2 (08:20→21:11)
[2017-03-14] MEDS: chlordiazePOXIDE HCl 25 MG CAP PO SCH ×3 (08:21→21:10)
--- NOTE | 2017-03-14 08:21 | CT ---
PRELIMINARY REPORT/[facility]/EMERGENCY AFTER HOURS PROCEDURE: EXAM: CT Left Lower Extremity With Intravenous Contrast CLINICAL HISTORY: 61 years old, male; Signs and symptoms; Other: Osteomyelitis TECHNIQUE: Axial computed tomography images of the left lower extremity with intravenous contrast. CONTRAST: 100 mL of ISOVUE administered intravenously. COMPARISON: No relevant prior studies available. FINDINGS: Bones/joints: No acute bony abnormality is identified. Elongated defect in the medial malleolus with suprajacent periosteal new bone formation may be related to previous injury. Osteopenia with tiny c ortical lucencies most prominent along the proximal and distal aspects of the tibia and fibula witho ut associated soft tissue abnormality or definite erosion. Unremarkable central marrow density. Soft tissues: Diffuse subcutaneous edema. Nonspecific amorphous calcification along the lateral femo ral condyle may be ligamentous. Elliptical fluid collection along the inferior aspect of the patella r tendon ventrally measuring up to 0.6 x 5 cm in transverse dimension. Otherwise, no fluid collection identified. Vasculature: Diffuse arterial calcification without appreciable major vessel occlusion. IMPRESSION: 1. Subcutaneous edema about the lower extremity. Elliptical prepatellar fluid collection may represe nt bursitis plus or minus infection. 2. Osteopenia with presumed old fracture deformity about the medial malleolus without definite findi ngs of osteomyelitis. Thank you for allowing us to participate in the care of your patient. Dictated and Authenticated by: Chan Gonzalez MD 03/14/2017 4:50 AM Central Time ([place] \T\ [place]) FINAL REPORT CT LEFT LOWER EXTREMITY: Date: 03/14/17 Multiple axial tomograms obtained of left lower extremity from knee to ankle with multiplanar recons truction. FINDINGS: Subcutaneous edema. Prepatellar thickening and small fluid collection. Osteopenia as noted on the pr eliminary report. No focal fluid or abscess collection seen in the soft tissue tissues. No definite CT evidence of osteomyelitis. There is periosteal reaction and evidence of fracture of the medial ma lleolus which may be only partially healed. I am in agreement with the preliminary report issued by Janee. POS: GONZÁLEZ
[2017-03-14] MEDS: Folic Acid 1 MG TAB PO SCH (08:22)
[2017-03-14] MEDS: Gabapentin 300 MG CAP PO SCH ×3 (08:22→21:10)
[2017-03-14] MEDS: Multivitamin W/ Minerals 1 TAB PO SCH (08:22)
--- NOTE | 2017-03-14 08:54 | PDOC.PN ---
- Subjective Encounter Start Date: 03/14/17 Encounter Start Time: 08:52 - Objective MAR Reviewed: Yes Vital Signs & Weight: Vital Signs (12 hours) Temp Pulse Resp BP Pulse Ox 03/14/17 08:20 82 130/76 03/14/17 08:00 130/76 03/14/17 07:01 82 15 97 03/14/17 07:00 99.8 F H 03/14/17 04:00 138/61 03/14/17 00:00 98.7 F 117/66 03/13/17 22:07 88 134/99 H Weight Weight 188 lb 7.924 oz Most Recent Monitor Data Heart Rate from ECG 74 NIBP 130/76 NIBP BP-Mean 110 Respiration from ECG 19 SpO2 94 I&O: 03/13/17 03/14/17 03/15/17 06:59 06:59 06:59 Intake Total 2713.1 360 Output Total 1245 1350 Balance 1468.1 -990 Result Diagrams: 03/14/17 04:29 03/14/17 04:29 Additional Labs: Accuchecks 03/14/17 03/13/17 03/13/17 06:10 22:44 16:27 POC Glucose 221 H 133 H 118 H Dx/Plan - Plan Syncope with Collapse 2/2 LLE Cellulitis with Sepsis, Alcohol withdrawl and resultant Afib with RVR * ECHO: * trend cardiac ezymes * consult cardiology * CT brain: no acute issue * check carotid dopplers * Fall precautions * PT/OT * Blood cxs: NGTD * Urine cx: NGTD * CT LLE: no abscess/osteomyelitis; small prepatellar fluid collection (will consult ortho if not improvement with abx -cannot aspirate due to surrounding cellulitis) * Emperic Abx: Vanco and Zosyn * ASE protocol with ativan prn for alcohol withdrwal; MVI/thiamine/folate * IVFs * check labs in AM B/L RUL Granulomas * f/u outpt DM2 * SSI * f/u accu checks Dispo: Continue ICU monitoring.
[2017-03-14] MEDS ORDERED: Aspirin 81 mg Enteric Coated Tablet PO SCH (09:00)
[2017-03-14] MEDS ORDERED: Potassium Chloride 20 MEQ TAB PO SCH (09:15)
[2017-03-14] MEDS ORDERED: Magnesium Sulfate 3 GM in Sodium Chloride 0.9% 100 ML IVPB SCH (09:15)
--- NOTE | 2017-03-14 09:18 | PRG ---
DATE OF SERVICE: 03/14/2017 HISTORY: Mr. Tran is doing better today. He is back in normal sinus rhythm, but he gets tachycardi c with minimal exertion, heart rate goes up to 128 if he is moving around a little bit, but he is si nus rhythm. PHYSICAL EXAMINATION: VITAL SIGNS: His blood pressure 130/76, pulse is 82 and regular. LUNGS: Clear. CARDIAC: Normal S1 and S2. Tachycardic with exertion. His heart rate comes down at rest. ABDOMEN: Soft, nontender. EXTREMITIES: There is moderate edema left lower extremity, minimal in the right. ASSESSMENT: 1. Cellulitis. 2. Paroxysmal atrial fibrillation. 3. Alcoholism 4. Apparently was iron deficient previously. He is on oral iron, although the MCV is high now. PLAN: 1. Start Lovenox, will start at 40 mg q.12 h., somewhat concerned about giving full anticoagulation with history of iron deficiency with some increased risk of bleeding. 2. He is also low on magnesium, that needs to be repleted. 3. Replete potassium. 4. Stop Cardizem. We will continue to follow with you.
[2017-03-14] MEDS: Enoxaparin Sodium 60 MG/0.6 ML SYRINGE SC SCH ×2 (09:32→21:11)
--- NOTE | 2017-03-14 10:30 | PRG ---
DATE OF SERVICE: 03/14/2017 He is much better. His leg looks less swollen and less red. only a small area on his left knee mike ears to be inflamed. PHYSICAL EXAMINATION: VITAL SIGNS: Blood pressure 130/76, maximum temperature is 99.8. CHEST: Chest reveals decreased breath sounds, no wheezing. CARDIAC: Normal S1, S2. ABDOMEN: Soft, no masses. LABORATORY DATA: White count 7,000, H\T\H 8 and 34. Platelet count 90, electrolytes are normal. S tool sample shows antigen positive, toxin negative. His diarrhea has pretty much resolved. IMPRESSION: 1. Left leg cellulitis on Zosyn and clindamycin. 2. Previous methicillin-resistant Staphylococcus aureus infected hip on the same side. 3. Diabetes. PLAN: Consider getting Infectious Disease consult to see how long he needs the antibiotics. Otherw ise, supportive care. I will follow while in the ICU.
[2017-03-14] MEDS: HumaLOG 300 UNITS/3 ML VIAL SC PRN (12:21)
[2017-03-14] MEDS: Potassium Chloride 10 MEQ TAB PO SCH (17:45)
[2017-03-14] MEDS: traZODone HCl 50 MG TAB PO PRN (21:10)
[2017-03-15] MEDS: Piperacillin/Tazobactam 3.375 GM in Sodium Chloride 0.9% 100 ML IVPB SCH ×2 (00:14→05:45)
[2017-03-15 04:51] LABS: #Eosinphils 0.3 thou/uL (0.0-0.7); #Lymphocytes 1.2 thou/uL (1.20-3.40); #Monocytes 0.5 thou/uL (0.11-0.59); #Neutrophils 4.3 thou/uL (1.40-6.50); %Basophils 0.5 % (0.0-1.0); %Lymphocytes 18.3 % (21.0-51.0); %Monocytes 8.1 % (0.0-10.0); Hematocrit 34.1 % (42.0-52.0); Mean Platelet Volume 6.5 fL (7.4-10.4); Red Blood Cell (RBC) Count 3.41 mill/uL (4.70-6.10); White Blood Cell (WBC) Count 6.3 thou/uL (4.8-10.8)
[2017-03-15 05:15] LABS: Anion Gap 10 mmol/L (10-20); BUN (Urea Nitrogen) 8 mg/dL (8.4-25.7); Calc. Creatinine Clearance 83 mL/min (70-130); Calcium 8.6 mg/dL (7.8-10.44); Carbon Dioxide 26 mmol/L (23-31); Chloride 103 mmol/L (98-107); Estimated GFR-MDRD 66; Magnesium 1.7 mg/dL (1.6-2.6)
[2017-03-15] MEDS: Clindamycin/D5W 600 MG in Premix Bag 1 BAG IVPB SCH (05:47)
[2017-03-15] MEDS: Furosemide 20 MG/2 ML VIAL SLOW IVP SCH ×2 (06:37→14:58)
[2017-03-15] MEDS: HumaLOG 300 UNITS/3 ML VIAL SC PRN (07:14)
[2017-03-15] MEDS: Mometasone/Formoterol 120 PUFF INHALER INH SCH ×2 (07:30→18:52)
[2017-03-15] MEDS: Ferrous Sulfate 325 MG TAB PO SCH (08:38)
[2017-03-15] MEDS: Gabapentin 300 MG CAP PO SCH ×3 (08:38→21:09)
[2017-03-15] MEDS: chlordiazePOXIDE HCl 25 MG CAP PO SCH ×3 (08:39→21:08)
[2017-03-15] MEDS: Folic Acid 1 MG TAB PO SCH (08:39)
[2017-03-15] MEDS: Atenolol 50 MG TAB PO SCH ×2 (08:39→21:08)
[2017-03-15] MEDS: Potassium Chloride 10 MEQ TAB PO SCH ×2 (08:39→16:11)
[2017-03-15] MEDS: Multivitamin W/ Minerals 1 TAB PO SCH (08:39)
[2017-03-15] MEDS: Enoxaparin Sodium 60 MG/0.6 ML SYRINGE SC SCH ×2 (08:40→21:08)
[2017-03-15] MEDS ORDERED: Potassium Chloride 20 MEQ TAB PO SCH (08:45)
--- NOTE | 2017-03-15 09:27 | PDOC.PN ---
- Subjective Encounter Start Date: 03/15/17 Encounter Start Time: 09:26 Subjective: No fevers this AM -: No cp/palpitations - Objective Vital Signs & Weight: Vital Signs (12 hours) Temp Pulse Resp BP Pulse Ox 03/15/17 07:30 76 15 98 03/15/17 04:00 99.0 F 03/15/17 03:45 113/72 03/15/17 00:00 98.8 F 155/80 H Weight Admit Weight 188 lb 7.92 oz Weight 188 lb 7.92 oz Most Recent Monitor Data Heart Rate from ECG 73 NIBP 113/72 NIBP BP-Mean 87 Respiration from ECG 18 SpO2 92 I&O: 03/14/17 03/15/17 03/16/17 06:59 06:59 06:59 Intake Total 2713.1 2702.2 0 Output Total 1245 4250 0 Balance 1468.1 -1547.8 0 Result Diagrams: 03/15/17 03:38 03/15/17 03:38 Additional Labs: Accuchecks 03/15/17 03/14/17 03/14/17 06:40 21:14 11:47 POC Glucose 226 H 88 169 H Phys Exam - Physical Examination Constitutional: NAD HEENT: PERRLA, moist MMs Neck: no nodes, no JVD Respiratory: no wheezing, no rales, clear to auscultation bilateral Cardiovascular: no significant murmur, no rub Gastrointestinal: soft, non-tender, positive bowel sounds Neurological: non-focal, moves all 4 limbs Psychiatric: normal affect, A&O x 3 Deviation from normal: LLE erythema - stable, tender Dx/Plan - Plan Syncope with Collapse 2/2 LLE Cellulitis with Sepsis, Alcohol withdrawl and resultant Afib with RVR * ECHO: 45-50% * troponin negative * consulted cardiology: cardizem gtt stopped * CT brain: no acute issue * carotid dopplers: no hemodynamically significant stenosis on either side * Fall precautions * PT/OT * Blood cxs: NGTD * Urine cx: NGTD * CT LLE: no abscess/osteomyelitis; small prepatellar fluid collection (will consult ortho if not improvement with abx -cannot aspirate due to surrounding cellulitis) * Emperic Abx: Vanco and Zosyn * ASE protocol with ativan prn for alcohol withdrwal; MVI/thiamine/folate * IVFs * check labs in AM B/L RUL Granulomas * f/u outpt DM2 * SSI * f/u accu checks Dispo: Continue ICU monitoring.
[2017-03-15] MEDS: Lorazepam 1 MG TAB PO PRN ×2 (09:41→16:11)
--- NOTE | 2017-03-15 09:59 | PRG ---
DATE OF SERVICE: 03/15/2017 His leg appears to be less swollen. He denies any shortness of breath. PHYSICAL EXAMINATION: VITAL SIGNS: Sats are 98%, pulse 76, respirations 15, blood pressure 139/70. CHEST: Chest reveals decreased breath sounds, no wheezing. CARDIAC: Normal S1. LABORATORY: White count 6000, H\T\H 9 and 34, platelet count 184. Electrolytes are normal. IMPRESSION: 1. Diabetes. 2. Cellulitis. Culture negative. 3. Supraventricular tachycardia. 4. Diarrhea. Await input from Infectious Disease. I will follow.
[2017-03-15] MEDS: Piperacillin/Tazobactam 3.375 GM, Admixture Fee 1 EACH in Sodium Chloride 0.9% 100 ML IVPB SCH ×3 (11:31→23:02)
[2017-03-15] MEDS ORDERED: VANCOMYCIN IVPB PRN (17:48)
[2017-03-15] MEDS: Vancomycin HCl 1.25 GM in Sodium Chloride 0.9% 250 ML 250 ML IVPB SCH (18:59)
[2017-03-15] MEDS: HYDROcodone/Acetaminophen 7.5/325 mg Tablet PO PRN (21:29)
[2017-03-15] MEDS: traZODone HCl 50 MG TAB PO PRN (23:00)
[2017-03-16] MEDS: Lorazepam 1 MG TAB PO PRN ×3 (00:22→21:36)
[2017-03-16 04:47] LABS: #Eosinphils 0.4 thou/uL (0.0-0.7); #Lymphocytes 1.6 thou/uL (1.20-3.40); #Monocytes 0.6 thou/uL (0.11-0.59); #Neutrophils 2.4 thou/uL (1.40-6.50); %Basophils 0.7 % (0.0-1.0); %Eosinophils 7.8 % (0.0-10.0); %Lymphocytes 30.6 % (21.0-51.0); %Monocytes 12.5 % (0.0-10.0); Hematocrit 37.1 % (42.0-52.0); Mean Platelet Volume 6.3 fL (7.4-10.4)
[2017-03-16 05:14] LABS: Anion Gap 12 mmol/L (10-20); BUN (Urea Nitrogen) 15 mg/dL (8.4-25.7); Calc. Creatinine Clearance 64 mL/min (70-130); Calcium 9.1 mg/dL (7.8-10.44); Carbon Dioxide 29 mmol/L (23-31); Chloride 101 mmol/L (98-107); Estimated GFR-MDRD 50; Magnesium 1.9 mg/dL (1.6-2.6)
--- NOTE | 2017-03-16 06:01 | CON ---
DATE OF CONSULTATION: 03/15/2017 REASON FOR CONSULTATION: Left lower extremity inflammatory process. HISTORY OF PRESENT ILLNESS: This is a 61-year-old known to us from previous visits for various diff erent issues, who had recently been released from rehabilitation for his alcoholism, and apparently has had a relapse and started having diarrhea and had sustained a fall, and was unconscious for a fe w hours. After recovering his mental status, he called 911, and was brought to the emergency room. The patient also recalls left lower extremity pain and some issues with his foot at the previous si te of amputation, and also he developed an area of inflammatory process in the prepatellar region af ter falling. In the emergency room, he had afib with RVR. No headaches, visual symptoms, sore thro at, odynophagia, dysphagia. No cough or sputum production or chest pain. No back pain. He has had diarrhea for a few days now, liquid, no urinary symptoms. 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 Left hip MRSA i nfection few years ago. PAST SURGICAL HISTORY: Gastric sleeve in 2010, left hip arthroplasty with revision due to infection , and partial toe amputations. ALLERGIES: None. MEDICATIONS: Currently Zosyn, ondansetron, mometasone, lorazepam, glucagon, enoxaparin, and diltiaz em. FAMILY HISTORY: Noncontributory. SOCIAL HISTORY: Has resumed drinking alcoholic beverages. No smoking. PHYSICAL EXAMINATION: VITAL SIGNS: T-max 100.2, currently 98.3. BP 120/80, pulse 88, respirations 16-20, and O2 saturati on 91% to 96%. GENERAL: Awake, alert, oriented, pleasant. SKIN: With area of erythema in the prepatellar region left side with measuring 10 x 15 cm, central area of ulceration with overlying scab measuring about 0.8 cm. There is some fluctuance associated with marked tenderness. There is a little bit of erythema in the anterior ankle, left side. There is area of abrasion in the dorsal aspect of the second toe left side DIP skin site, the first toe am putation site with no inflammatory changes, no lymphadenopathy. HEENT: Ocular movements are conjugate and some periorbital edema. Sclerae is little bit with hyper emia. Pupils are equal and reactive. Oral cavity with numerous teeth in place with quite a bit of decay and gum disease. NECK: Supple, no jugular venous distention. LUNGS: With symmetric, clear breath sounds. HEART: S1 and S2, irregular rate. No S3 or S4. ABDOMEN: Soft, not distended or tender. No ascites. A little bit of distention actually. No orga nomegaly. Bowel sounds are increased. No bladder distention. EXTREMITIES: Range of motion left knee is hindered because of inflammatory process right below, but the knee itself does not have any inflammatory changes. Pulses are 1+ in dorsalis pedis. Moves al l extremities equally with some limitation because of inflammatory process. NEUROLOGIC: Cognitive function appears to be intact. LABORATORY DATA: White cell count 6.9, now 6.3. Hemoglobin 11.2 and stable. MCV 99, platelets 184 , neutrophil percentage was at 78 down to 68% after admission. Creatinine 1.12, potassium 3.4. Reza robiology with 2 sets of blood cultures thus far no growth. C. diff antigen positive, toxin negativ e. Lower extremity CT subcutaneous edema with prepatellar fluid collection and vascular ultrasound with no evidence of deep vein thrombosis. No other chest x-ray was ordered. ASSESSMENT: 1. Alcoholism. 2. Type 2 diabetes. 3. Prepatellar bursitis. 4. Withdrawal syndrome. DISCUSSION: The patient most likely has prepatellar bursitis secondary to Staphylococcus aureus. M RSA is possible. The patient is presenting some signs of early withdrawal from alcoholic beverages. We will add vancomycin to regimen. Continue Zosyn, may need surgical debridement and probably brayan l, but we will monitor clinical progress. Monitor blood cultures until final results. Duration of therapy will be limited if blood cultures remain negative. Eventually could transition to oral clin damycin or Zyvox. Again might need surgical consultation.
[2017-03-16] MEDS: Furosemide 20 MG/2 ML VIAL SLOW IVP SCH (06:31)
[2017-03-16] MEDS: Piperacillin/Tazobactam 3.375 GM, Admixture Fee 1 EACH in Sodium Chloride 0.9% 100 ML IVPB SCH ×3 (06:31→18:02)
[2017-03-16] MEDS: Mometasone/Formoterol 120 PUFF INHALER INH SCH ×2 (06:59→18:45)
[2017-03-16] MEDS: Vancomycin HCl 1.25 GM in Sodium Chloride 0.9% 250 ML 250 ML IVPB SCH ×2 (07:45→18:02)
[2017-03-16] MEDS: HYDROcodone/Acetaminophen 7.5/325 mg Tablet PO PRN ×3 (07:46→21:23)
[2017-03-16] MEDS ORDERED: Sodium Chloride 0.9% 500 ML IV SCH (08:45)
[2017-03-16] MEDS: Enoxaparin Sodium 60 MG/0.6 ML SYRINGE SC SCH ×2 (10:30→21:22)
[2017-03-16] MEDS: Atenolol 50 MG TAB PO SCH ×2 (10:34→21:20)
[2017-03-16] MEDS: chlordiazePOXIDE HCl 25 MG CAP PO SCH ×3 (10:34→21:22)
[2017-03-16] MEDS: Gabapentin 300 MG CAP PO SCH ×3 (10:35→21:23)
[2017-03-16] MEDS: Potassium Chloride 10 MEQ TAB PO SCH ×2 (10:35→18:03)
[2017-03-16] MEDS: Multivitamin W/ Minerals 1 TAB PO SCH (10:35)
[2017-03-16] MEDS: Folic Acid 1 MG TAB PO SCH (10:35)
[2017-03-16] MEDS: Ferrous Sulfate 325 MG TAB PO SCH (10:36)
--- NOTE | 2017-03-16 11:51 | PDOC.PN ---
- Subjective Encounter Start Date: 03/16/17 Encounter Start Time: 08:30 -: old records requested/rev Pt seen and examined on rounds, case discussed with Dr Jo. Chart reviewe din its entrety. This is my first visit with this patient Stable overnight, Pain controlled, VSS. 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 no F/C, no N/V/D/C, pain improved, swellign markedly improved. No CP or sOB. feels a little shaky this morning. related a history of left CARLY infection, hardware removal and assisted IV abs with Vanc for MRSA a few years ago 10 point ROS performed and neg for all systems except as above - Objective Resuscitation Status: Full MAR Reviewed: Yes Vital Signs & Weight: Vital Signs (12 hours) Temp Pulse Resp BP BP Pulse Ox 03/16/17 10:34 77 130/72 03/16/17 07:32 97.7 F 77 18 130/72 03/16/17 04:20 96.2 F L 57 L 20 129/87 100 Weight Admit Weight 188 lb 7.92 oz Weight 188 lb 7.92 oz Most Recent Monitor Data Heart Rate from ECG 89 NIBP 142/95 NIBP BP-Mean 133 Respiration from ECG 20 SpO2 100 I&O: 03/15/17 03/16/17 03/17/17 06:59 06:59 06:59 Intake Total 2702.2 2500 Output Total 4250 2450 Balance -1547.8 50 Result Diagrams: 03/16/17 04:37 03/16/17 04:37 Additional Labs: Accuchecks 03/15/17 03/15/17 03/15/17 21:07 17:51 13:46 POC Glucose 88 118 H 158 H Radiology Reviewed by me: Yes EKG Reviewed by me: Yes Phys Exam - Physical Examination Constitutional: NAD jittery, anxious HEENT: PERRLA, moist MMs, sclera anicteric, oral pharynx no lesions Neck: no nodes, no JVD, supple, full ROM Respiratory: no wheezing, no rales, no rhonchi, clear to auscultation bilateral Cardiovascular: RRR, no significant murmur, no rub Gastrointestinal: soft, non-tender, no distention, positive bowel sounds Musculoskeletal: pulses present, edema present left LE more than right Neurological: non-focal, normal sensation, moves all 4 limbs Lymphatic: no nodes Psychiatric: normal affect, A&O x 3 Skin: no rash, normal turgor, cap refill <2 seconds Deviation from normal: skin of left knee overlying the patellar tendon with redness, calor and -: rapid refill after blanching. Tender, mildly balottable. no drainage Dx/Plan (1) Patellar tendonitis of left knee Code(s): M76.52 - PATELLAR TENDINITIS, LEFT KNEE Status: Acute Comment: history of MRSA infection. Pt statres it looks better after ovenright abx. 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 (4) ETOH abuse Code(s): F10.10 - ALCOHOL ABUSE, UNCOMPLICATED Status: Acute (5) Rapid atrial fibrillation Code(s): I48.91 - UNSPECIFIED ATRIAL FIBRILLATION Status: Acute Comment: rate controlled, Dr Jo following (6) Alcohol withdrawal syndrome Code(s): F10.239 - ALCOHOL DEPENDENCE WITH WITHDRAWAL, UNSPECIFIED Status: Acute Qualifiers: Complication of substance-induced condition: uncomplicated Qualified Code(s ): F10.230 - Alcohol dependence with withdrawal, uncomplicated (7) History of prostate cancer Code(s): Z85.46 - PERSONAL HISTORY OF MALIGNANT NEOPLASM OF PROSTATE Status: Chronic Comment: Encouraged to continue with urology outpatient (8) Hypertension Code(s): I10 - ESSENTIAL (PRIMARY) HYPERTENSION Status: Chronic Qualifiers: Hypertension type: essential hypertension Qualified Code(s): I10 - Essential (primary) hypertension - Plan cont current plan of care, continue antibiotics, PT/OT, DVT proph w/lovenox * .
[2017-03-16] MEDS: HumaLOG 300 UNITS/3 ML VIAL SC PRN (18:04)
[2017-03-16] MEDS: traZODone HCl 50 MG TAB PO PRN (21:25)
[2017-03-17] MEDS: Piperacillin/Tazobactam 3.375 GM, Admixture Fee 1 EACH in Sodium Chloride 0.9% 100 ML IVPB SCH ×4 (00:32→19:41)
[2017-03-17 06:09] LABS: #Eosinphils 0.4 thou/uL (0.0-0.7); #Lymphocytes 1.4 thou/uL (1.20-3.40); #Monocytes 0.6 thou/uL (0.11-0.59); #Neutrophils 2.1 thou/uL (1.40-6.50); %Basophils 0.4 % (0.0-1.0); %Eosinophils 8.3 % (0.0-10.0); %Lymphocytes 30.7 % (21.0-51.0); %Monocytes 13.7 % (0.0-10.0); Hematocrit 34.5 % (42.0-52.0); Mean Platelet Volume 6.2 fL (7.4-10.4); Red Blood Cell (RBC) Count 3.42 mill/uL (4.70-6.10); White Blood Cell (WBC) Count 4.6 thou/uL (4.8-10.8)
[2017-03-17 06:22] LABS: Vancomycin, Trough 23.4 ug/mL
[2017-03-17 06:23] LABS: Anion Gap 11 mmol/L (10-20); BUN (Urea Nitrogen) 14 mg/dL (8.4-25.7); Calc. Creatinine Clearance 77 mL/min (70-130); Calcium 8.5 mg/dL (7.8-10.44); Carbon Dioxide 26 mmol/L (23-31); Chloride 102 mmol/L (98-107); Estimated GFR-MDRD 61; Magnesium 1.6 mg/dL (1.6-2.6)
[2017-03-17] MEDS: HYDROcodone/Acetaminophen 7.5/325 mg Tablet PO PRN ×2 (07:35→15:27)
[2017-03-17] MEDS: Vancomycin HCl 1.25 GM in Sodium Chloride 0.9% 250 ML 250 ML IVPB SCH (07:44)
[2017-03-17] MEDS: HumaLOG 300 UNITS/3 ML VIAL SC PRN (08:46)
[2017-03-17] MEDS: Atenolol 50 MG TAB PO SCH ×2 (08:48→21:15)
[2017-03-17] MEDS: Potassium Chloride 10 MEQ TAB PO SCH ×2 (08:49→17:10)
[2017-03-17] MEDS: Ferrous Sulfate 325 MG TAB PO SCH (08:49)
[2017-03-17] MEDS: Folic Acid 1 MG TAB PO SCH (08:49)
[2017-03-17] MEDS: Multivitamin W/ Minerals 1 TAB PO SCH (08:49)
[2017-03-17] MEDS: chlordiazePOXIDE HCl 25 MG CAP PO SCH ×3 (08:49→21:15)
[2017-03-17] MEDS: Gabapentin 300 MG CAP PO SCH ×3 (08:49→21:15)
[2017-03-17] MEDS ORDERED: Vancomycin HCl 750 MG in Sodium Chloride 0.9% 250 ML 250 ML IVPB SCH (09:00)
--- NOTE | 2017-03-17 09:04 | PRG ---
DATE OF SERVICE: 03/17/2017 SUBJECTIVE: Mr. Tran is maintaining sinus rhythm. His creatinine improved after receiving intraven ous fluid yesterday. His creatinine is down 1.2. ASSESSMENT: 1. The patient had episodes of paroxysmal atrial fibrillation earlier when he had an active infecti on, now in sinus rhythm. 2. History of alcoholism with and recent admission for alcohol rehab and he continued to drink afte r going home. PLAN: 1. Continue beta blockers. 2. I think the risk of anticoagulation would outweigh the potential benefit in this setting. The p yang's CHADS VASc score is relatively low. His risk of bleeding is high with the alcoholism. He is maintaining sinus rhythm at this time. We will sign off. Please call if needed. ADDENDUM: CHADS VASc score appears to be 1, new history of hypertension, although he is not current ly hypertensive. Otherwise, no other risk factors.
[2017-03-17] MEDS: Enoxaparin Sodium 40 MG/0.4 ML SYRINGE SC SCH (10:37)
[2017-03-17] MEDS: Vancomycin HCl 750 MG in Sodium Chloride 0.9% 250 ML 250 ML IVPB SCH ×2 (10:39→21:16)
--- NOTE | 2017-03-17 11:52 | PDOC.PN ---
- Subjective Encounter Start Date: 03/17/17 Encounter Start Time: 10:00 Subjective: no palp or pain -: is able to ambulate 100ft with PT -: still has some shaking and tremors - Objective MAR Reviewed: Yes Vital Signs & Weight: Vital Signs (12 hours) Temp Pulse Resp BP BP BP Pulse Ox 03/17/17 08:48 60 142/68 H 03/17/17 07:27 97.6 F 60 18 142/68 H 03/17/17 04:00 97.7 F 70 16 113/74 113/74 99 03/17/17 00:00 98.0 F 71 16 128/69 128/69 99 Weight Admit Weight 188 lb 7.92 oz Weight 188 lb 7.92 oz Most Recent Monitor Data Heart Rate from ECG 89 NIBP 142/95 NIBP BP-Mean 133 Respiration from ECG 20 SpO2 100 I&O: 03/16/17 03/17/17 03/18/17 06:59 06:59 06:59 Intake Total 2500 1750 Output Total 2450 2365 Balance 50 -615 Result Diagrams: 03/17/17 05:15 03/17/17 05:15 Additional Labs: Accuchecks 03/17/17 03/17/17 03/16/17 11:35 06:14 21:02 POC Glucose 91 158 H 118 H 03/16/17 03/16/17 03/16/17 17:11 12:07 06:30 POC Glucose 164 H 148 H 129 H Phys Exam - Physical Examination HEENT: PERRLA, moist MMs Neck: no JVD, supple Respiratory: no wheezing, no rales Cardiovascular: RRR, no significant murmur Gastrointestinal: soft, non-tender, positive bowel sounds Musculoskeletal: pulses present left knee erythema and edema+, not much tenderness Neurological: non-focal, moves all 4 limbs Dx/Plan (1) Prepatellar bursitis of left knee Code(s): M70.42 - PREPATELLAR BURSITIS, LEFT KNEE Status: Acute (2) DM type 2 (diabetes mellitus, type 2) Status: Chronic Qualifiers: Diabetes mellitus complication status: with unspecified complications (3) ETOH abuse Code(s): F10.10 - ALCOHOL ABUSE, UNCOMPLICATED Status: Acute (4) History of MRSA infection Code(s): Z86.14 - PERSONAL HISTORY OF METHICILLIN RESIS STAPH INFECTION Status : Chronic Comment: left CARLY infection, s/p 2 stage and [facility] IV antbiotics 3-4 years ago (5) Alcohol withdrawal syndrome Code(s): F10.239 - ALCOHOL DEPENDENCE WITH WITHDRAWAL, UNSPECIFIED Status: Acute Qualifiers: Complication of substance-induced condition: uncomplicated Qualified Code(s ): F10.230 - Alcohol dependence with withdrawal, uncomplicated (6) Chronic anemia Code(s): D64.9 - ANEMIA, UNSPECIFIED Status: Chronic (7) History of prostate cancer Code(s): Z85.46 - PERSONAL HISTORY OF MALIGNANT NEOPLASM OF PROSTATE Status: Chronic Comment: Encouraged to continue with urology outpatient (8) Hypertension Code(s): I10 - ESSENTIAL (PRIMARY) HYPERTENSION Status: Chronic Qualifiers: Hypertension type: essential hypertension Qualified Code(s): I10 - Essential (primary) hypertension - Plan is on vanc and zosyn -: not sure if he needs I&D, knee area is still erythematous, per ortho advice -: off anticoagulants due to risk of falls and bleeding, off cardizem drip -: on librium for alc wd, finished alc rehab recently a month back or so -: tx to med floor * . Review of Systems - Medications/Allergies Allergies/Adverse Reactions: Allergies Allergy/AdvReac Type Severity Reaction Status Date / Time No Known Drug Allergies Allergy Verified 03/13/17 17:22 Medications: Current Medications Acetaminophen (Tylenol) 650 mg PO Q4H PRN PRN Reason: Headache/Fever or Pain Hydrocodone Bitart/Acetaminophen ([place] 7.5/325) 1 tab PO Q4H PRN PRN Reason: Moderate Pain (4-6) 2ND LINE Last Admin: 03/17/17 07:35 Dose: 1 tab Atenolol (Tenormin) 50 mg PO BID [facility] Last Admin: 03/17/17 08:48 Dose: 50 mg Chlordiazepoxide HCl (Librium) 25 mg PO TID [facility] Last Admin: 03/17/17 08:49 Dose: 25 mg Dextrose/Water (Dextrose 50%) 25 gm SLOW IVP PRN PRN PRN Reason: Hypoglycemia Enoxaparin Sodium (Lovenox) 40 mg SC 0900 [facility] Last Admin: 03/17/17 10:37 Dose: 40 mg Ferrous Sulfate (Feosol) 325 mg PO QAM-WM [facility] Last Admin: 03/17/17 08:49 Dose: 325 mg Folic Acid (Folvite) 1 mg PO DAILY [facility] Last Admin: 03/17/17 08:49 Dose: 1 mg Gabapentin (Neurontin) 300 mg PO TID [facility] Last Admin: 03/17/17 08:49 Dose: 300 mg Glucagon (Glucagon) 1 mg IM PRN PRN PRN Reason: Hypoglycemia Dextrose/Water (D5w) 1,000 mls @ 0 mls/hr IV .Q0M PRN; As Directed PRN Reason: Hypoglycemia Diltiazem HCl 125 mg/ Sodium (Chloride) 125 mls @ 8 mls/hr IVPB INF [facility]; 8 MG/ HR PRN Reason: Protocol Last Admin: 03/13/17 22:12 Dose: 125 mls Piperacillin Sod/Tazobactam Sod 3.375 gm/ Miscellaneous Medication 1 each/ Sodium Chloride 100 mls @ 200 mls/hr IVPB Q6HR [facility] Last Admin: 03/17/17 07:35 Dose: 100 mls Vancomycin HCl 750 mg/ Sodium (Chloride) 250 mls @ 166.67 mls/hr IVPB 1000, 2200 [facility] Last Admin: 03/17/17 10:39 Dose: 250 mls Insulin Human Lispro (Humalog) 0 units SC .MODERATE SLIDING SC PRN PRN Reason: Moderate Correctional Scale Last Admin: 03/17/17 08:46 Dose: 2 unit Iron/Minerals/Multivitamins (Theragran M) 1 tab PO DAILY [facility] Last Admin: 03/17/17 08:49 Dose: 1 tab Loperamide HCl (Imodium) 2 mg PO Q4H PRN PRN Reason: Diarrhea/Loose Stools Last Admin: 03/16/17 00:22 Dose: 2 mg Lorazepam (Ativan) 1 mg PO QID PRN PRN Reason: Anxiety Last Admin: 03/16/17 21:36 Dose: 1 mg Miscellaneous Medication (Pharmacy To Dose) 1 each IVPB PRN PRN PRN Reason: GOAL TROUGH = 15(PER DR TY) Mometasone Furoate/Formoterol Fumar (Dulera 200 Mcg/5 Mcg Inhaler) 1 puff INH BID-RT [facility] Last Admin: 03/16/17 18:45 Dose: 1 puff Ondansetron HCl (Zofran) 4 mg IVP Q6H PRN PRN Reason: Nausea/Vomiting Potassium Chloride (Klor-Con 10) 10 meq PO BID-WM [facility] Last Admin: 03/17/17 08:49 Dose: 10 meq Sodium Chloride (Flush - Normal Saline) 10 ml IVF Q12HR [facility] Last Admin: 03/17/17 08:47 Dose: 10 ml Sodium Chloride (Flush - Normal Saline) 10 ml IVF PRN PRN PRN Reason: Saline Flush Trazodone HCl (Desyrel) 50 mg PO HSPRN PRN PRN Reason: .INSOMNIA Last Admin: 03/16/17 21:25 Dose: 50 mg
[2017-03-17] MEDS: Mometasone/Formoterol 120 PUFF INHALER INH SCH ×2 (11:59→18:42)
[2017-03-17] MEDS: Lorazepam 1 MG TAB PO PRN (13:23)
[2017-03-17] MEDS: traZODone HCl 50 MG TAB PO PRN (21:15)
[2017-03-18] MEDS: Piperacillin/Tazobactam 3.375 GM, Admixture Fee 1 EACH in Sodium Chloride 0.9% 100 ML IVPB SCH ×4 (00:09→17:54)
[2017-03-18 05:07] LABS: #Eosinphils 0.3 thou/uL (0.0-0.7); #Monocytes 0.5 thou/uL (0.11-0.59); #Neutrophils 1.8 thou/uL (1.40-6.50); %Basophils 1.3 % (0.0-1.0); %Eosinophils 6.9 % (0.0-10.0); %Lymphocytes 28.4 % (21.0-51.0); %Monocytes 14.6 % (0.0-10.0); Hematocrit 32.2 % (42.0-52.0); Mean Platelet Volume 5.9 fL (7.4-10.4); Red Blood Cell (RBC) Count 3.19 mill/uL (4.70-6.10); White Blood Cell (WBC) Count 3.6 thou/uL (4.8-10.8)
[2017-03-18 05:26] LABS: ALT (SGPT) 17 U/L (8-55); AST (SGOT) 27 U/L (5-34); Alkaline Phosphatase 52 U/L (40-150); Anion Gap 10 mmol/L (10-20); BUN (Urea Nitrogen) 13 mg/dL (8.4-25.7); Bilirubin, Total 0.3 mg/dL (0.2-1.2); Calc. Creatinine Clearance 90 mL/min (70-130); Calcium 8.9 mg/dL (7.8-10.44); Carbon Dioxide 24 mmol/L (23-31); Chloride 109 mmol/L (98-107); Estimated GFR-MDRD 73; Globulin 3.1 g/dL (2.4-3.5); Protein, Total 6.1 g/dL (5.8-8.1)
[2017-03-18] MEDS: Mometasone/Formoterol 120 PUFF INHALER INH SCH ×2 (06:32→19:14)
[2017-03-18] MEDS: Vancomycin HCl 750 MG in Sodium Chloride 0.9% 250 ML 250 ML IVPB SCH ×3 (08:24→22:06)
[2017-03-18] MEDS: Gabapentin 300 MG CAP PO SCH ×3 (08:24→20:11)
[2017-03-18] MEDS: Potassium Chloride 10 MEQ TAB PO SCH ×2 (08:24→17:54)
[2017-03-18] MEDS: Atenolol 50 MG TAB PO SCH ×2 (08:24→20:11)
[2017-03-18] MEDS: Folic Acid 1 MG TAB PO SCH (08:25)
[2017-03-18] MEDS: Multivitamin W/ Minerals 1 TAB PO SCH (08:25)
[2017-03-18] MEDS: Enoxaparin Sodium 40 MG/0.4 ML SYRINGE SC SCH (08:25)
[2017-03-18] MEDS: chlordiazePOXIDE HCl 25 MG CAP PO SCH ×3 (08:25→20:12)
[2017-03-18] MEDS: Ferrous Sulfate 325 MG TAB PO SCH (08:25)
[2017-03-18] MEDS ORDERED: Diabetic Tussin 200 MG/10 ML UDCUP PO PRN (08:31)
[2017-03-18] MEDS ORDERED: Loratadine 10 MG TAB PO PRN (08:31)
[2017-03-18] MEDS ORDERED: Milk Of Magnesia 30 ML UDCUP PO PRN (08:31)
[2017-03-18] MEDS ORDERED: Eucerin (Mineral Oil/Petrolatum,White) 30 gm Jar TOP PRN (08:31)
[2017-03-18] MEDS ORDERED: HYDROcodone/Acetaminophen 5/325 mg Tablet PO PRN (08:31)
[2017-03-18] MEDS ORDERED: Ondansetron ODT 4 MG TAB PO PRN (08:31)
[2017-03-18] MEDS ORDERED: Sodium Chloride 0.65% Nasal 44 ML BOT EA NARE PRN (08:31)
[2017-03-18] MEDS ORDERED: Senokot 8.6 MG TAB PO PRN (08:31)
[2017-03-18] MEDS ORDERED: Mag-Al 1200 mg/1200 mg/30 ML UDCUP PO PRN (08:31)
[2017-03-18] MEDS ORDERED: hydrALAZINE 20 MG/ML VIAL SLOW IVP PRN (08:31)
[2017-03-18] MEDS ORDERED: cloNIDine 0.1 MG TAB PO PRN (08:31)
[2017-03-18] MEDS ORDERED: Artificial Tears 18 DROP/0.9 ML EA EYE PRN (08:31)
--- NOTE | 2017-03-18 11:47 | PDOC.PN ---
- Subjective Encounter Start Date: 03/18/17 Encounter Start Time: 10:10 -: old records requested/rev pt has pain at left knee, he feels depressed, no fever, - Objective MAR Reviewed: Yes Vital Signs & Weight: Vital Signs (12 hours) Temp Pulse Resp BP BP Pulse Ox 03/18/17 08:24 68 03/18/17 07:36 98.0 F 68 18 03/18/17 07:29 98.0 F 68 18 160/98 H 98 03/18/17 06:32 74 16 98 03/18/17 04:00 97.7 F 64 14 134/77 134/77 98 03/18/17 00:00 97.5 F L 65 14 117/70 117/70 95 Weight Admit Weight 188 lb 7.92 oz Weight 188 lb 7.92 oz Most Recent Monitor Data Heart Rate from ECG 89 NIBP 142/95 NIBP BP-Mean 133 Respiration from ECG 20 SpO2 100 I&O: 03/17/17 03/18/17 03/19/17 06:59 06:59 06:59 Intake Total 1750 820 Output Total 2365 1225 Balance -615 -405 Result Diagrams: 03/18/17 04:57 03/18/17 04:57 Additional Labs: Accuchecks 03/18/17 03/17/17 03/17/17 05:36 17:05 11:35 POC Glucose 107 107 91 Radiology Reviewed by me: Yes Phys Exam - Physical Examination Constitutional: NAD HEENT: PERRLA, moist MMs, sclera anicteric Neck: no JVD, supple Respiratory: no wheezing, no rales, no rhonchi Cardiovascular: RRR, no significant murmur, no rub Gastrointestinal: soft, non-tender, no distention, positive bowel sounds Musculoskeletal: no edema, pulses present left knee prepattelar bursitis Neurological: non-focal, normal sensation, moves all 4 limbs Psychiatric: normal affect, A&O x 3 Skin: no rash, normal turgor Dx/Plan (1) Alcohol withdrawal syndrome Code(s): F10.239 - ALCOHOL DEPENDENCE WITH WITHDRAWAL, UNSPECIFIED Status: Acute Qualifiers: Complication of substance-induced condition: uncomplicated Qualified Code(s ): F10.230 - Alcohol dependence with withdrawal, uncomplicated (2) Prepatellar bursitis of left knee Code(s): M70.42 - PREPATELLAR BURSITIS, LEFT KNEE Status: Acute (3) Rapid atrial fibrillation Code(s): I48.91 - UNSPECIFIED ATRIAL FIBRILLATION Status: Acute Comment: rate controlled, Dr Jo following (4) Abnormal LFTs Code(s): R79.89 - OTHER SPECIFIED ABNORMAL FINDINGS OF BLOOD CHEMISTRY Status : Chronic (5) Chronic alcohol use Code(s): F10.10 - ALCOHOL ABUSE, UNCOMPLICATED Status: Chronic (6) Chronic anemia Code(s): D64.9 - ANEMIA, UNSPECIFIED Status: Chronic (7) DM type 2 (diabetes mellitus, type 2) Status: Chronic Qualifiers: Diabetes mellitus complication status: with unspecified complications (8) History of MRSA infection Code(s): Z86.14 - PERSONAL HISTORY OF METHICILLIN RESIS STAPH INFECTION Status : Chronic Comment: left CARLY infection, s/p 2 stage and [facility] IV antbiotics 3-4 years ago (9) History of prostate cancer Code(s): Z85.46 - PERSONAL HISTORY OF MALIGNANT NEOPLASM OF PROSTATE Status: Chronic Comment: Encouraged to continue with urology outpatient (10) Hypertension Code(s): I10 - ESSENTIAL (PRIMARY) HYPERTENSION Status: Chronic Qualifiers: Hypertension type: essential hypertension Qualified Code(s): I10 - Essential (primary) hypertension (11) Macrocytic anemia Code(s): D53.9 - NUTRITIONAL ANEMIA, UNSPECIFIED Status: Chronic - Plan cont current plan of care, continue antibiotics * continue vancomycin and zosyn * will consult ortho to see if he needs any I & d * medication reviewed as below * symptomatic treatment * pain control. Review of Systems - Review of Systems ENT: negative: Ear Pain, Ear Discharge, Nose Pain, Nose Discharge, Nose Congestion, Mouth Pain, Mouth Swelling, Throat Pain, Throat Swelling, Other Respiratory: negative: Cough, Dry, Shortness of Breath, Hemoptysis, SOB with Excertion, Pleuritic Pain, Sputum, Wheezing Cardiovascular: negative: Chest Pain, Palpitations, Orthopnea, Paroxysmal Noc. Dyspnea, Edema, Light Headedness, Other Gastrointestinal: negative: Nausea, Vomiting, Abdominal Pain, Diarrhea, Constipation, Melena, Hematochezia, Other Genitourinary: negative: Dysuria, Frequency, Incontinence, Hematuria, Retention , Other Musculoskeletal: negative: Neck Pain, Shoulder Pain, Arm Pain, Back Pain, Hand Pain, Leg Pain, Foot Pain, Other Skin: negative: Rash, Lesions, Adolfo, Bruising, Other - Medications/Allergies Allergies/Adverse Reactions: Allergies Allergy/AdvReac Type Severity Reaction Status Date / Time No Known Drug Allergies Allergy Verified 03/13/17 17:22 Medications: Current Medications Acetaminophen (Tylenol) 650 mg PO Q4H PRN PRN Reason: Headache/Fever or Pain Hydrocodone Bitart/Acetaminophen ([place] 5/325) 1 tab PO Q4H PRN PRN Reason: Moderate Pain (4-6) Al Hydroxide/Mg Hydroxide (Maalox) 15 ml PO Q4H PRN PRN Reason: Heartburn or Indigestion Artificial Tears (Tears Naturale) 0 drop EA EYE PRN PRN PRN Reason: Dry Eyes Atenolol (Tenormin) 50 mg PO BID [facility] Last Admin: 03/18/17 08:24 Dose: 50 mg Chlordiazepoxide HCl (Librium) 25 mg PO TID [facility] Last Admin: 03/18/17 08:25 Dose: 25 mg Clonidine HCl (Catapres) 0.1 mg PO Q4H PRN PRN Reason: Systolic BP > 180 Dextrose/Water (Dextrose 50%) 25 gm SLOW IVP PRN PRN PRN Reason: Hypoglycemia Enoxaparin Sodium (Lovenox) 40 mg SC 0900 [facility] Last Admin: 03/18/17 08:25 Dose: 40 mg Famotidine (Pepcid) 20 mg PO BID [facility] Ferrous Sulfate (Feosol) 325 mg PO QAM-[facility] Last Admin: 03/18/17 08:25 Dose: 325 mg Folic Acid (Folvite) 1 mg PO DAILY [facility] Last Admin: 03/18/17 08:25 Dose: 1 mg Gabapentin (Neurontin) 300 mg PO TID [facility] Last Admin: 03/18/17 08:24 Dose: 300 mg Glucagon (Glucagon) 1 mg IM PRN PRN PRN Reason: Hypoglycemia Guaifenesin (Robitussin Sf) 200 mg PO Q4H PRN PRN Reason: Cough Hydralazine HCl (Apresoline) 10 mg SLOW IVP Q4H PRN PRN Reason: Systolic BP > 180 Dextrose/Water (D5w) 1,000 mls @ 0 mls/hr IV .Q0M PRN; As Directed PRN Reason: Hypoglycemia Piperacillin Sod/Tazobactam Sod 3.375 gm/ Miscellaneous Medication 1 each/ Sodium Chloride 100 mls @ 200 mls/hr IVPB Q6HR [facility] Last Admin: 03/18/17 05:23 Dose: 100 mls Vancomycin HCl 750 mg/ Sodium (Chloride) 250 mls @ 166.67 mls/hr IVPB 1000, 2200 [facility] Last Admin: 03/18/17 08:24 Dose: 250 mls Insulin Human Lispro (Humalog) 0 units SC .MODERATE SLIDING SC PRN PRN Reason: Moderate Correctional Scale Last Admin: 03/17/17 08:46 Dose: 2 unit Iron/Minerals/Multivitamins (Theragran M) 1 tab PO DAILY [facility] Last Admin: 03/18/17 08:25 Dose: 1 tab Loperamide HCl (Imodium) 2 mg PO Q4H PRN PRN Reason: Diarrhea/Loose Stools Last Admin: 03/16/17 00:22 Dose: 2 mg Loratadine (Claritin) 10 mg PO DAILYPRN PRN PRN Reason: Sinus Symptoms Lorazepam (Ativan) 1 mg PO QID PRN PRN Reason: Anxiety Last Admin: 03/17/17 13:23 Dose: 1 mg Magnesium Hydroxide (Milk Of Magnesium) 30 ml PO DAILYPRN PRN PRN Reason: Constipation Mineral Oil/White Petrolatum (Eucerin Cream) 0 gm TOP BIDPRN PRN PRN Reason: Dry Skin Miscellaneous Medication (Pharmacy To Dose) 1 each IVPB PRN PRN PRN Reason: GOAL TROUGH = 15(PER DR TY) Mometasone Furoate/Formoterol Fumar (Dulera 200 Mcg/5 Mcg Inhaler) 1 puff INH BID-RT [facility] Last Admin: 03/18/17 06:32 Dose: 1 puff Ondansetron HCl (Zofran) 4 mg IVP Q6H PRN PRN Reason: Nausea/Vomiting Ondansetron HCl (Zofran Odt) 4 mg PO Q6H PRN PRN Reason: Nausea/Vomiting Potassium Chloride (Klor-Con 10) 10 meq PO BID-WM [facility] Last Admin: 03/18/17 08:24 Dose: 10 meq Senna (Senokot) 2 tab PO HSPRN PRN PRN Reason: Constipation Sodium Chloride (Flush - Normal Saline) 10 ml IVF Q12HR [facility] Last Admin: 03/18/17 08:26 Dose: 10 ml Sodium Chloride (Flush - Normal Saline) 10 ml IVF PRN PRN PRN Reason: Saline Flush Sodium Chloride ([place] Nasal [place] 0.65%) 0 ml EA NARE QIDPRN PRN PRN Reason: Nasal Congestion Trazodone HCl (Desyrel) 50 mg PO HSPRN PRN PRN Reason: .INSOMNIA Last Admin: 03/17/17 21:15 Dose: 50 mg
[2017-03-18] MEDS ORDERED: Famotidine 20 MG TAB PO SCH (13:00)
[2017-03-18] MEDS: Famotidine 20 MG TAB PO SCH ×2 (14:26→20:11)
[2017-03-18] MEDS: traZODone HCl 50 MG TAB PO PRN (22:34)
[2017-03-19] MEDS: Piperacillin/Tazobactam 3.375 GM, Admixture Fee 1 EACH in Sodium Chloride 0.9% 100 ML IVPB SCH ×4 (00:27→12:46)
--- NOTE | 2017-03-19 01:18 | CON ---
DATE OF CONSULTATION: 03/18/2017 REASON FOR CONSULTATION: Left prepatellar bursitis. HISTORY OF PRESENT ILLNESS: This is a patient well known to me. 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 He fell a few weeks ago, landed on his knee, he developed c ellulitis in his leg, history with IV antibiotics. Dr. Fay added vancomycin to this as well. His erythema improved even over his prepatellar bursa, which is actually more of his infrapatellar burs a than his prepatellar bursa, this remains swollen. Today, I drained the prepatellar bursa at the bedside. I obtained about 10 mL of bloody fluid, whic h appeared to be old hematoma. There was no purulence within this material was not sent for culture as patient is already on antibiotics. I do not feel formal surgical drainage is required. I did a pply local dressing. Recommendation to continue antibiotics, change the dressing daily.
[2017-03-19 04:26] LABS: Anion Gap 12 mmol/L (10-20); BUN (Urea Nitrogen) 12 mg/dL (8.4-25.7); Calc. Creatinine Clearance 81 mL/min (70-130); Carbon Dioxide 21 mmol/L (23-31); Chloride 107 mmol/L (98-107); Estimated GFR-MDRD 64
[2017-03-19 04:35] LABS: Acanthocytes SLIGHT = 1-5 cells (100X) (None Seen); Anisocytosis SLIGHT = 6-15 cells (100X) (0-5/hpf); Hematocrit 31.8 % (42.0-52.0); Macrocytosis SLIGHT = 6-15 cells (100X) (0-5/hpf); Mean Platelet Volume 6.3 fL (7.4-10.4); Neutrophil 63 % (42-75); Reactive Lymphocytes 1 % (0-10); Red Blood Cell (RBC) Count 3.15 mill/uL (4.70-6.10); White Blood Cell (WBC) Count 5.8 thou/uL (4.8-10.8)
[2017-03-19] MEDS: Mometasone/Formoterol 120 PUFF INHALER INH SCH (06:30)
[2017-03-19] MEDS: Potassium Chloride 10 MEQ TAB PO SCH (08:38)
[2017-03-19] MEDS: Ferrous Sulfate 325 MG TAB PO SCH (08:38)
[2017-03-19] MEDS: Atenolol 50 MG TAB PO SCH (08:39)
[2017-03-19] MEDS: Famotidine 20 MG TAB PO SCH (08:40)
[2017-03-19] MEDS: chlordiazePOXIDE HCl 25 MG CAP PO SCH (08:40)
[2017-03-19] MEDS: Multivitamin W/ Minerals 1 TAB PO SCH (08:41)
[2017-03-19] MEDS: Folic Acid 1 MG TAB PO SCH (08:41)
[2017-03-19] MEDS: Gabapentin 300 MG CAP PO SCH (08:41)
[2017-03-19] MEDS: Enoxaparin Sodium 40 MG/0.4 ML SYRINGE SC SCH (08:42)
--- NOTE | 2017-03-19 11:32 | DIS ---
DATE OF ADMISSION: 03/13/2017 DATE OF DISCHARGE: 03/19/2017 PRIMARY CARE PHYSICIAN: Dr. Danny Lu. DISCHARGE DISPOSITION: [facility]. PRIMARY DISCHARGE DIAGNOSES: 1. New onset atrial fibrillation with rapid ventricular response converted to sinus rhythm. 2. Alcohol withdrawal syndrome. 3. Prepatellar bursitis of left knee. SECONDARY DISCHARGE DIAGNOSES: Macrocytic anemia, hypertension, history of prostate cancer, histor y of methicillin-resistant Staphylococcus aureus infection, diabetes type 2, anemia, macrocytic, chr onic alcohol abuse, abnormal liver function tests due to alcoholism. PRIMARY PROCEDURE/OPERATION: None. RADIOLOGICAL INVESTIGATION: Chest x-ray on admission showed no cardiopulmonary process. Carotid Do ppler negative for any stenosis. Vascular Doppler negative for any DVT. Echocardiography showed EF 45-50%. Lower extremity CT scan showed subcutaneous edema of lower extremity, prepatellar bursitis . SIGNIFICANT LABS: WBC 5.8, hemoglobin 10.8, platelets 192. Sodium 136, potassium 4.3, BUN 12, crea tinine 1.15, calcium 9.0, CRP 0.99. LFTs normal. Alcohol level 11. Stool for Clostridium difficil e antigen positive and toxin negative. Urine culture negative. Blood culture negative. DISCHARGE MEDICATIONS: Flagyl 500 mg p.o. t.i.d. for 7 days, Florastor 250 mg p.o. for 10 days, Kef nitin 500 mg p.o. b.i.d. for 10 days, doxycycline 100 mg p.o. b.i.d. for 10 days, Pepcid 20 mg p.o. b. i.d., Dulera one puff inhalation b.i.d. Continue following medication: Aspirin 81 mg p.o. daily, T enormin 50 mg p.o. b.i.d., calcium antacid chewable tablet p.o. after meals p.r.n., ferrous sulfate 325 mg p.o. daily, folic acid 1 mg p.o. daily, gabapentin 100 mg p.o. t.i.d., ibuprofen 200 mg p.o. q.6 hourly p.r.n., Ativan 1 mg p.o. q.4 hourly p.r.n., multivitamin 1 tablet p.o. daily, Protonix 4 0 mg p.o. daily, Librium 25 mg p.o. t.i.d., glyburide 5 mg p.o. daily, trazodone 50 mg p.o. at [facility]. CONTRAINDICATIONS: None. CODE STATUS: FULL CODE. INPATIENT CONSULTANTS: Dr. Trinh was following as patient was [place] [facility]. Jo was consulted for atrial fibrillation with RVR. Dr. Fay was consulted for prepatellar bursitis. Dr. James Ballesteros was consulted for prepatellar bursitis. TEST RESULTS PENDING ON DISCHARGE: None. ALLERGIES: No known drug allergy. DISCHARGE PLAN: Post hospital, the patient will follow up with Dr. Danny Lu as well as Dr. Triston Ballesteros as instructed. HOSPITAL COURSE: A 61-year-old male who was initially admitted by Dr. Song. Please see his H\T\ P for further details. This patient was admitted for generalized weakness. This patient has a hist ory of alcoholism and he had abnormal LFTs. He was also having alcohol withdrawal syndrome. During this admission, he was found with atrial fibrillation with RVR. He was admitted in ICU because [facility] was admitted in ICU, Dr. Trinh and Dr. Jo was also consulted. His atrial fibrillation with RVR was controlled with Cardizem drip and subsequently he converted to sinus rhythm. Upon stabilization, this patient was transferred to telemetry floor. There, the patient stayed in [facility] for a couple of days. He was also found with a left prepatellar bursitis and that is wh y we consulted Dr. Fay and Dr. Fay was thinking that he may need surgical debridement. The ariana ent was already on antibiotic therapy with cefepime and vancomycin. We consulted Dr. James Ballesteros, and he drained a little bit through the left knee bursitis side, but there was no pus, it was only blood and he recommended that he does not need any surgical treatment, but he can continue antibiotic therapy and follow up on an outpatient basis. While in hospital, the patient was given IV antibiotic therapy with vancomycin and Zosyn and now we are changing to Keflex and doxycycline. His stool for C. diff was antigen positive and toxin negati ve and that is why we also prescribed Flagyl for another 7 days. At this point, the patient is swelling over left knee, it is getting better, but he will need a shaka le bit longer antibiotic therapy and outpatient follow up with orthopedic physician. This patient w as approved for inpatient rehabilitation. While in hospital, he was also treated for alcohol withdr awal syndrome. This patient is not a good candidate for anticoagulation therapy at this point. The patient will follow up with Cardiology. The patient is seen and examined at bedside today. All other review of systems was reviewed with scar martines and negative. PHYSICAL EXAMINATION: VITAL SIGNS: Currently, temperature 98.3, pulse 106, respiratory rate 20, saturation 97%, blood pre ssure 148/82. Weight 188 pounds. GENERAL: The patient is currently alert, awake, no obvious acute distress. HEAD: Normocephalic, atraumatic. EYES: Pupils round, reactive to light. Extraocular muscles intact. ENT: Oropharynx within normal limits. Moist mucous membranes. No oral lesions. No pharyngeal brenda thema, no exudate. NECK: Supple, range of motion is normal. LUNGS: Clear to auscultation without any rhonchi. CARDIAC: S1, S2 appears regular. No murmur, no gallop, no rub. ABDOMEN: Soft, bowel sounds present. EXTREMITIES: Left prepatellar bursitis noted. Erythema is reducing. Right lower extremity within normal limits. NEUROLOGIC: Nonfocal examination. Paperwork for discharge done. Discharge medication reconciliation done. At this point, we are cons idering discharging him back to rehabilitation. Total time spent on discharge day 31 minutes.
[2017-03-19 11:48] VITALS: BP 139/78; TEMP 98
[2017-03-19] MEDS: HumaLOG 300 UNITS/3 ML VIAL SC PRN (12:10)
[2017-03-19] MEDS ORDERED: Vancomycin HCl 750 MG in Sodium Chloride 0.9% 250 ML 250 ML IVPB SCH (22:00)
--- OUTSIDE RECORDS SUMMARY | 2017-03-20 00:59 | XMS | Clinical Summary ---
:1955 Author Organization [facility] Address [address] [place] [address] Phone Care Team Providers Name Role Phone [...]
== END 2017-03-19 14:05 | DRG 872 ==
LOC: ERS 08:58 → CCU 13:50 → 2NO 03-15 15:30 → T4-B 03-17 17:23
PROVIDERS: ADMIT Hospitalist; ATTEND Hospitalist
PROC: 0M9P3ZZ Drainage of Left Knee Bursa and Ligament, Percutaneous Approach (ICD-10-PCS; principal; 2017-03-18)
DX: A41.9 Sepsis, unspecified organism (principal); E87.2 Acidosis; L03.116 Cellulitis of left lower limb; F10.239 Alcohol dependence with withdrawal, unspecified; I47.1 Supraventricular tachycardia; M70.42 Prepatellar bursitis, left knee; I48.0 Paroxysmal atrial fibrillation; E11.40 Type 2 diabetes mellitus with diabetic neuropathy, unspecified; Z79.84 Long term (current) use of oral hypoglycemic drugs; I10 Essential (primary) hypertension; Z86.14 Personal history of Methicillin resistant Staphylococcus aureus infection; Z85.46 Personal history of malignant neoplasm of prostate; D53.9 Nutritional anemia, unspecified; Z98.84 Bariatric surgery status; R19.7 Diarrhea, unspecified
CPT/HCPCS: 36415; 36416; 70450; 71010; 80048; 80053; 80202; 80307; 82550; 82553; 82728; 83540; 83550; 83605; 83690; 83735; 84425; 84443; 84484; 85025; 86140; 87040; 87086; 87324; 87449; 93005; 93306; 93880; 94664; 96361; 96365; 96375; A4216; G8978-GP-CL; G8979-GP-CJ; G8987-GO-CJ; G8988-GO-CH; J1650; J1940; J2060; J2543; J3370; J3475; J3490; J7050

== ENCOUNTER 2017-04-07 18:01 | Inpatient (IN) | payer MEDICARE ==
[~2017-04-07 18:01] MED LIST: ISOVUE-370 76%-LOCM 1 ML ONE
[2017-04-07 18:34] LABS: #Eosinphils 0.1 thou/uL (0.0-0.7); #Lymphocytes 1.9 thou/uL (1.20-3.40); #Monocytes 0.4 thou/uL (0.11-0.59); #Neutrophils 2.7 thou/uL (1.40-6.50); %Basophils 0.7 % (0.0-1.0); %Eosinophils 1.1 % (0.0-10.0); %Lymphocytes 37.2 % (21.0-51.0); %Monocytes 8.6 % (0.0-10.0); Hematocrit 28.4 % (42.0-52.0); Mean Platelet Volume 5.5 fL (7.4-10.4); White Blood Cell (WBC) Count 5.2 thou/uL (4.8-10.8)
[2017-04-07 18:54] LABS: ALT (SGPT) 16 U/L (8-55); AST (SGOT) 29 U/L (5-34); Alkaline Phosphatase 98 U/L (40-150); Anion Gap 16 mmol/L (10-20); BUN (Urea Nitrogen) 8 mg/dL (8.4-25.7); Bilirubin, Total 0.3 mg/dL (0.2-1.2); Calc. Creatinine Clearance 0 mL/min (70-130); Calcium 8.6 mg/dL (7.8-10.44); Carbon Dioxide 22 mmol/L (23-31); Chloride 108 mmol/L (98-107); Estimated GFR-MDRD Greater than 90; Globulin 3.7 g/dL (2.4-3.5); Lipase 35 U/L (8-78); Protein, Total 7.1 g/dL (5.8-8.1)
[2017-04-07] MEDS ORDERED: Lorazepam 2 MG/ML VIAL ONE (18:58)
[2017-04-07 18:59] LABS: Troponin I Less than 0.010 ng/mL (< 0.028)
--- NOTE | 2017-04-07 20:55 | CT ---
EXAM: NONCONTRAST HEAD CT 04/07/17 COMPARISON: 03/14/17 HISTORY: Trauma. Dizziness. Patient passed out four times. TECHNIQUE: Noncontrast head CT is performed from skull base to skull vertex. FINDINGS: No parenchymal hemorrhage. No extra-axial hematoma. No midline shift. Basilar cisterns are patent. A ge appropriate atrophy. Cortical linda-white matter differentiation is preserved. Ventricles and sulci are patent and symmetric. The calvarium is intact. Mild mucosal thickening of the bilateral maxillary sinuses. Adequate mastoi d air cell aeration. IMPRESSION: 1. No acute intracranial process. 2. Atrophy, age appropriate. Given patient's history, further evaluation with nonemergent brain MRI. POS: [facility]
--- NOTE | 2017-04-07 21:35 | CT ---
EXAM: ABDOMEN CT WITH CONTRAST PELVIC CT WITH CONTRAST 04/07/17 HISTORY: Dizziness. Patient passed out four times. Right lower quadrant pain. COMPARISON: 06/20/16. TECHNIQUE: An abdomen and pelvic CT are performed with IV and oral contrast. Coronal reformatted images are sub mitted for interpretation. FINDINGS: ABDOMEN CT: Linear opacities in the lung bases, right greater than left may represent atelectasis or infiltrate. Heart size is within normal limits. No significant pericardial fluid. The descending thoracic aorta and abdominal aorta have an overall normal caliber. No periaortic fat stranding. Intra and extrahep atic portal vein is patent. Liver, spleen, pancreas, and bilateral adrenal glands have appropriate attenuation. There are hypodensities in the left renal cortex which are too small to characterize. The largest hy podensity measures 1.6 cm and has an attenuation coefficient of 24 Hounsfield units. There is symmet yaa enhancement of the kidneys. Bilaterally, no obstructive uropathy. No gastrohepatic, retrocrural or periportal lymphadenopathy. There is a small hiatal hernia. Bariatric surgical changes in the stomach are noted. Multiple normal caliber small bowel loops. No evidence of small bowel obstruction. Ileocecal junction is normal. No rmal caliber appendix emanates from the cecum. The right hemicolon and transverse colon are unremark able. There is fecal material throughout the colon. There is mild mucosal prominence involving the d istal descending colon and proximal sigmoid colon with associated diverticulosis. There is no defini te evidence of diverticulitis. Mucosal prominence may be due to chronic changes from remote bouts of inflammation. There is mild mucosal prominence of the rectum. The findings are similar to the previ ous examination. Colonoscopy should be considered on a nonemergent basis. Stable adenoma associated with the left adrenal gland. PELVIC CT: Urinary bladder is unremarkable. No mass, lymphadenopathy, free air or free fluid. There are no lyti c or blastic lesions. Beam attenuation artifact from a left hip prosthesis does limit evaluation of the pelvis. Chronic ch anges of the right bony pelvis are noted. IMPRESSION: 1. Normal caliber appendix. 2. No evidence of obstructive uropathy. 3. Colonic diverticulosis, without diverticulitis. 4. Persistent mucosal thickening of the sigmoid colon and rectum. Evaluation is limited. Noneme rgent colonoscopy can be performed. POS: [facility]
--- NOTE | 2017-04-07 22:31 | RAD ---
CHEST ONE VIEW 04/07/17 HISTORY: Fall. COMPARISON: 03/13/16. FINDINGS: Atherosclerosis of the aorta. Normal cardiac silhouette. Pulmonary vessels and hilum are normal. Cos tophrenic angles are clear. Slightly diminished lung volume is likely due to poor inspiratory effort . No consolidation or mass. No pneumothorax or osseous abnormalities. IMPRESSION: No acute cardiopulmonary process. POS: [facility]
[2017-04-07] MEDS ORDERED: Ondansetron ODT 4 MG TAB SL PRN (23:25)
[2017-04-07] MEDS ORDERED: Sodium Chloride 0.9% 1,000 ML IV SCH (23:25)
[2017-04-07] MEDS ORDERED: Ondansetron HCl/PF 4 MG/2 ML Vial IVP PRN (23:25)
[2017-04-08] MEDS ORDERED: Insulin Regular 300 UNITS/3 ML VIAL SC PRN (00:28)
[2017-04-08] MEDS ORDERED: Dextrose 5% in Water 1,000 ML IV PRN (00:28)
[2017-04-08] MEDS ORDERED: Nitroglycerin 0.4 MG TAB (25 Tab Bottle) PO PRN (00:28)
[2017-04-08] MEDS ORDERED: Dextrose 50% Abboject 50 ML SYRINGE SLOW IVP PRN (00:28)
[2017-04-08] MEDS ORDERED: Ondansetron HCl/PF 4 MG/2 ML Vial IVP PRN (00:30)
[2017-04-08] MEDS ORDERED: Ondansetron ODT 4 MG TAB PO PRN (00:30)
--- NOTE | 2017-04-08 00:39 | HP ---
DATE OF ADMISSION: 04/07/2017 PRIMARY CARE PHYSICIAN: The patient follows Dr. Danny Lu. CODE STATUS: FULL CODE. CHIEF COMPLAINT: Dizziness with recurrent falls. HISTORY OF PRESENT ILLNESS: The patient is a 61-year-old male with chronic alcoholism, diabetes mellitus type 2 with recent hospitalization, presented to the emergency room with above complaints. The patient was admitted at this facility from 03/13/2017 to 03/19/2017. His initial diagnosis was generalized weakness. During the hospital stay, he was diagnosed with prepatellar bursitis that was drained. He also went into atrial fibrillation with rapid ventricular response and was evaluated by Dr. Jo. No anticoagulation was started due to high risk for bleeding. He takes aspirin 81 mg daily. The patient presented to the hospital today with dizziness. He fell 4 times today without any loss of consciousness. No significant injuries reported. He reported that he quit drinking 3 days ago. He denies any headache, double vision, blurring of vision, facial asymmetry, seizures, fever, or chills. He is compliant with all of his medications including atenolol and aspirin 81 mg daily. He denies chronic nonsteroidal anti-inflammatory drug use; however, took some Aleve 2 days ago. He currently has home healthcare. In the emergency room, his initial vital signs showed temperature 99 with respirations of 18, pulse rate of 98 with blood pressure of 155/89 with O2 saturation 98% on room air. His hemoglobin was 9.2. It was 10.9 two weeks ago. He also reported passing some blood clots and had dark stool earlier today. He also takes iron tablets on a daily basis per patient report. His stool for occult blood in the emergency room was positive. He received 1 mg IV Ativan along with IV fluids. PAST MEDICAL HISTORY: 1. Chronic alcoholism. 2. Paroxysmal atrial fibrillation. The patient is not an anticoagulation candidate. 3. Diabetes mellitus type 2 with diabetic neuropathy. 4. Recent hospitalization as discussed above. 5. Prepatellar bursitis of the left knee. 6. History of MRSA infection. 7. Chronic macrocytic anemia. 8. Hypertension. 9. History of prostate cancer. PAST SURGICAL HISTORY: 1. Recent drainage for prepatellar bursitis. 2. Left first and second toe amputation in 05/2016. ALLERGIES: The patient denies any drug allergies. CURRENT HOME MEDICATIONS: The patient stated that all of his medications are in the chart from last 2 weeks. He is unable to recall any of his home medication except for Aspirin 81 mg daily. SOCIAL HISTORY: He was in alcohol rehabilitation earlier this year. He drinks on and off. He is trying to quit. He is unable to exactly quantify how much he drinks. FAMILY HISTORY: Positive for heart disease in his brother. REVIEW OF SYSTEMS: The following complete review of systems was negative, unless otherwise mentioned in the HPI or below: Constitutional: Weight loss or gain, ability to conduct usual activities. Skin: Rash, itching. Eyes: Double vision, pain. ENT/Mouth: Nose bleeding, neck stiffness, pain, tenderness. Cardiovascular: Palpitations, dyspnea on exertion, orthopnea. Respiratory: Shortness of breath, wheezing, cough, hemoptysis, fever or night sweats. Gastrointestinal: Poor appetite, abdominal pain, heartburn, nausea, vomiting, constipation, or diarrhea. Genitourinary: Urgency, frequency, dysuria, nocturia. Musculoskeletal: Pain, swelling. Neurologic/Psychiatric: Anxiety, depression. Allergy/Immunologic: Skin rash, bleeding tendency. PHYSICAL EXAMINATION: VITAL SIGNS: As discussed above. GENERAL: A 61-year-old male, somewhat anxious appearing with generalized tremors. HEENT: Head is atraumatic, normocephalic, sclerae are anicteric. Moist mucous membranes. No oral lesion. NECK: Supple, no neck stiffness, no carotid bruit. LUNGS: Clear to auscultation bilaterally. No wheezing or rales. HEART: S1, S2 present. Regular rate and rhythm. No rubs or gallops appreciated. No heaves or pulsation. ABDOMEN: Soft, nontender, bowel sounds present. EXTREMITIES: 1+ edema in bilateral lower extremities with erythema. No calf tenderness. NEUROLOGIC: Grossly nonfocal, moves all four extremities, generalized tremors, probably from alcohol withdrawal. Power was 5/5 in all extremities. Finger-to- nose test and [id number] test was normal. PSYCHIATRIC: Alert, awake, oriented x3. SKIN: Warm and dry. Chronic skin lesions in bilateral feet. LYMPH NODES: No palpable lymph nodes in the neck. PERIPHERAL VASCULAR: Radial pulses palpable bilaterally. MUSCULOSKELETAL: No joint swelling or tenderness. LABORATORY FINDINGS: CBC showed WBC 5.2 with hemoglobin 9.2, hematocrit 28.4, platelet of 266. Chemistries showed sodium 142, potassium 4.1, chloride 108, bicarb 22, BUN of 8, creatinine 0.79. His blood glucose was 60. LFTs in normal range. Troponins were negative. Stool for occult blood in the emergency room was positive. Chest x-ray by my review was negative for infiltrate. Due to some chronic right lower extremity abdominal pain, he underwent abdominal pelvis CT with contrast that was essentially negative. It showed some persistent mucosal thickening of the sigmoid colon and rectum. Telemetry monitoring by my review showed sinus rhythm. IMPRESSION: 1. Generalized weakness with frequent falls 2. Anemia with positive stool for occult blood. 3. Bilateral lower extremity cellulitis. 4. Chronic alcoholism with alcohol intoxication and suspected alcohol withdrawal. His plasma alcohol was 153 today. 5. Diabetes mellitus type 2 with hypoglycemia. 6. Diverticulosis. 7. Paroxysmal atrial fibrillation, currently in sinus rhythm. 8. Diabetic neuropathy. 9. Recent prepatellar bursitis. 10. Chronic macrocytic anemia. PLAN: The patient will be monitored as a 23-hour observation. We will monitor his hemoglobin. We will also monitor for alcohol withdrawal. We will resume his home medications based on last discharge summary. He denies any syncope. An echocardiogram was done last month that showed ejection fraction 45% to 50%. He was extensively counseled to quit drinking. His frequent falls could be from chronic alcoholism with alcohol intoxication. He also has diabetic neuropathy. Physical therapy will be consulted. If his hemoglobin continues to drop, we will consider inpatient Gastroenterology consultation. Antibiotics for cellulitis after blood cultures. Plan of care was discussed with the patient. He stated understanding. Note, patient has seen Dr. Haresh Henson earlier this year. He also had EGD last year with Dr. Henson per patient report. [facility]
[2017-04-08] MEDS ORDERED: Pantoprazole 40 MG VIAL IVP SCH (00:45)
[2017-04-08] MEDS ORDERED: Doxycycline 100 MG CAP PO SCH (01:15)
[2017-04-08] MEDS ORDERED: cefTRIAXone\\ROCEPHIN 1 GM in Sodium Chloride 0.9% 100 ML IVPB SCH (01:15)
[2017-04-08] MEDS ORDERED: Multivitamins, Adult 10 ML, Folic Acid 1 MG, Thiamine HCl 100 MG in Dextrose 5 %-0.45 %... IV SCH ×4 (01:30)
[2017-04-08] MEDS: cefTRIAXone\\ROCEPHIN 1 GM, Syringe 0.4 ML in Sterile Water 9.6 ML SLOW IVP SCH (01:33)
[2017-04-08] MEDS: Acetaminophen 325 MG TAB PO PRN ×2 (01:33→16:52)
[2017-04-08] MEDS: Lorazepam 1 MG TAB PO PRN ×3 (01:41→17:01)
[2017-04-08 05:44] LABS: IRF 0.279 Ratio (0.163-0.362); Reticulocyte Count 3.7 % (0.5-1.5)
[2017-04-08 05:45] LABS: Hematocrit 24.7 % (42.0-52.0)
[2017-04-08 06:04] LABS: Magnesium 1.2 mg/dL (1.6-2.6); Phosphorus 2.5 mg/dL (2.3-4.7)
[2017-04-08] MEDS ORDERED: Dextrose 5 % And 0.9 % NaCl 1,000 ML IV SCH (06:15)
[2017-04-08] MEDS: traMADol HCl 50 MG TAB PO PRN ×2 (06:30→14:38)
[2017-04-08 08:08] LABS: Hematocrit 24.8 % (42.0-52.0)
[2017-04-08] MEDS: Atenolol 25 MG TAB PO SCH (08:17)
[2017-04-08] MEDS: Folic Acid 1 MG TAB PO SCH (08:17)
[2017-04-08] MEDS: Cyanocobalamin (Vitamin B-12) 1,000 MCG TAB PO SCH (08:17)
[2017-04-08] MEDS: Calcium Carbonate + Vit D 1 TAB PO SCH ×2 (08:17→16:49)
[2017-04-08] MEDS: Multivit, Therapeutic 1 TAB PO SCH (08:17)
[2017-04-08] MEDS: Doxycycline 100 MG CAP PO SCH ×2 (08:18→20:25)
[2017-04-08] MEDS: Pantoprazole 40 MG VIAL IVP SCH ×2 (08:18→20:25)
[2017-04-08] MEDS ORDERED: Folic Acid 1 MG TAB PO SCH (09:00)
[2017-04-08] MEDS ORDERED: Magnesium Sulfate 4 GM in Sodium Chloride 0.9% 250 ML 250 ML IVPB SCH ×2 (11:00→11:15)
[2017-04-08] MEDS: Saccharomyces boulardii 250 MG CAP PO SCH (11:14)
--- NOTE | 2017-04-08 12:53 | RAD ---
THREE VIEWS RIGHT SHOULDER: COMPARISON: None. HISTORY: Right shoulder pain. FINDINGS: Three views right shoulder show a fracture of the distal aspect of the clavicle. No AC separation i s seen. The visualized right thorax is unremarkable. IMPRESSION: Right distal clavicle fracture. POS: [facility]
--- NOTE | 2017-04-08 13:40 | PDOC.PN ---
- Subjective Encounter Start Date: 04/08/17 Encounter Start Time: 10:00 Pt seen and exmained, chart reviewed in its entirety. I met the patient for one day during that hospital stay. This is my first visit with this patient during this stay. Case discussed face to face with Dr Jean. Pt admitted for syncope and concern for rectal bleeding. Pt has continued to drink since his last discharge. He says his last drink was two days ago, but etoh level on admit was 153. Pt has severe right shoulder pain and visible ecchymosis to right shoulder region. CXR on admit report was neg. shoulder xray this morning demonstrates a clavicular fracture. no f/c, no N/V/D/C. pt feels shaky and agitated. No rectal bleeding. has chronically dark stools since he started Iron tablets a while back. 10 point ROS performed and neg for all except as per HPI - Objective Resuscitation Status: Resuscitation Status FULL:Full Resuscitation MAR Reviewed: Yes Vital Signs & Weight: Vital Signs (12 hours) Temp Pulse Resp BP BP Pulse Ox 04/08/17 12:00 98.7 F 81 17 146/70 H 98 04/08/17 09:00 98.8 F 78 18 97 04/08/17 08:17 78 04/08/17 08:00 98.8 F 78 18 125/60 97 04/08/17 03:29 98.4 F 84 20 146/68 H 96 Weight Weight 171 lb 9.6 oz I&O: 04/07/17 04/08/17 04/09/17 06:59 06:59 06:59 Intake Total 1597 Output Total 875 Balance 722 Result Diagrams: 04/08/17 07:54 04/07/17 18:18 Additional Labs: Accuchecks 04/08/17 04/08/17 04/08/17 08:34 05:28 04:13 POC Glucose 107 99 98 04/08/17 02:19 POC Glucose 133 H Radiology Reviewed by me: Yes EKG Reviewed by me: Yes Phys Exam - Physical Examination Constitutional: NAD HEENT: PERRLA, moist MMs, sclera anicteric, oral pharynx no lesions Neck: no nodes, no JVD, supple, full ROM Respiratory: no wheezing, no rales, no rhonchi, clear to auscultation bilateral Cardiovascular: RRR, no significant murmur, no rub Gastrointestinal: soft, non-tender, no distention, positive bowel sounds Musculoskeletal: no edema, pulses present right anterior shoulder ecchymosis Neurological: non-focal, normal sensation, moves all 4 limbs Lymphatic: no nodes Psychiatric: normal affect, A&O x 3 Skin: no rash, normal turgor, cap refill <2 seconds Dx/Plan (1) Right clavicle fracture Code(s): S42.001A - FRACTURE OF UNSP PART OF RIGHT CLAVICLE, INIT FOR CLOS FX Status: Acute Comment: acute, secondary to fall. Splint (2) Alcohol withdrawal syndrome Code(s): F10.239 - ALCOHOL DEPENDENCE WITH WITHDRAWAL, UNSPECIFIED Status: Acute Qualifiers: Complication of substance-induced condition: uncomplicated Qualified Code(s ): F10.230 - Alcohol dependence with withdrawal, uncomplicated Comment: ativan PRN (3) Chronic alcohol use Code(s): F10.10 - ALCOHOL ABUSE, UNCOMPLICATED Status: Chronic (4) DM type 2 (diabetes mellitus, type 2) Status: Chronic Qualifiers: Diabetes mellitus complication status: without complication Diabetes mellitus usp insulin use: without buttermaker use Qualified Code(s): E11.9 - Type 2 diabetes mellitus without complications (5) History of prostate cancer Code(s): Z85.46 - PERSONAL HISTORY OF MALIGNANT NEOPLASM OF PROSTATE Status: Chronic Comment: Encouraged to continue with urology outpatient (6) Hypertension Code(s): I10 - ESSENTIAL (PRIMARY) HYPERTENSION Status: Chronic Qualifiers: Hypertension type: essential hypertension Qualified Code(s): I10 - Essential (primary) hypertension (7) Syncope Code(s): R55 - SYNCOPE AND COLLAPSE Status: Acute Comment: ? due to orthostasis? will get orthostatics today. Continue IV fluids - Plan * .
[2017-04-08 14:17] VITALS: BMI 24.6
[2017-04-08 14:17] LABS: Hematocrit 26.4 % (42.0-52.0)
[2017-04-08] MEDS: D5 0.9% NS w/ 20 mEq KCl 1,000 ML IV SCH (14:39)
--- NOTE | 2017-04-08 17:46 | CON ---
DATE OF CONSULTATION: 04/08/2017 REASON FOR CONSULTATION: Heme-positive stool, history of alcoholism. HISTORY OF PRESENT ILLNESS: Mr. Tran is a 61-year-old male who was recently in this hospital and di scharged on 03/19/2017. He had bursitis in his knee with some Staph figure out and negative blood c ultures, seen by ID and discharged home with some doxycycline. He is alcoholic as well with DTs ___ __, and he went home. He comes back today after falling multiple times at home, feeling dizzy. He was evaluated in the emergency room and was admitted for frequent falls, decreased hemoglobin, heme- positive stool, and alcohol intoxication. Talking with the patient, he states he has seen some red blood in the stools in the past. More recently, he is not so sure. He reports he had upper and low er endoscopy in the past [address] Henson at [facility] and these were no rmal studies. I have not confirmed this, however. Presently, he denies any abdominal pain. He won ders if he can eat. He states he stopped drinking 3 days' prior; however, his alcohol level was candice vated on admission. He does complain of right shoulder pain that has been hurting for several days. PAST MEDICAL HISTORY: 1. He was diagnosed with prostate cancer in 2015, he is unsure of treatment. 2. He developed atrial fibrillation last admission. He was not anticoagulated secondary to his arie oing alcohol abuse. 3. 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 4. Chronic alcoholism. 5. Prepatellar bursitis, left knee. 6. Prior history of MRSA. 7. Chronic macrocytic anemia. 8. Hypertension. PAST SURGICAL HISTORY: He had a tap of his bursitis last admission, which revealed some Staph and h e was put on doxycycline for this. He has had the previous amputation. He also reports previous en doscopies. ALLERGIES: None known. MEDICATIONS AT HOME: It is unclear if he was taking anything at home. In the ER, there was report that he had been taking some Aleve, but he denies this. He states he was taking baby aspirin. His home medication list did include, Tenormin, iron, multivitamin, folic acid, Protonix, trazodone, and glyburide, but it is unclear if he was taking any of that. PRESENT MEDICATIONS: Tylenol p.r.n., Tenormin 25 p.o. b.i.d., calcium, Rocephin, B12. He received a banana bag today and has now ordered for oral multivitamin, thiamine, and folate tomorrow, D5 norm al saline at 75 an hour, doxycycline 100 mg p.o. b.i.d., insulin sliding scale, Ativan part of BUCK p rotocol, he received a dose last night, but not today. Zofran p.r.n., Protonix 40 q. 12 hours, tram adol p.r.n. for pain. PHYSICAL EXAMINATION: GENERAL: The patient is resting in bed. NEUROLOGIC: He has a bruise on his right shoulder, which is grossly abnormal and distorted. VITAL SIGNS: Temperature is 98, pulse 78, blood pressure 146/68. The patient is grossly tremulous. Pulse upon my count was about 130 right now, irregular. He is sweaty. LUNGS: Clear. HEART: Regular rate and rhythm without clicks or murmurs. ABDOMEN: Nontender. He has bruising on his right shoulder with deformed right shoulder. He is rel uctant to move it. RECTAL: Reveals some brownish to coffee-ground like stool with no overt clots, no gross melena. EXTREMITIES: No clubbing, cyanosis, or edema. LABORATORY STUDIES: Last night at 1818 hours, sodium was 142, potassium 4.1, chloride 108, bicarbon ate 22, anion gap 14, glucose 60 in the ER, now is 133 to 98. AST, ALT 29 and 16, 98. CK-MB was 7. 2. Creatine kinase of 7.47, TIBC 247, phosphorus 2.5, magnesium 1.2 that is from this morning. Hem oglobin was 10.9 at last admission on discharge on 03/20/2017, it was 9.2 on admission, 7.9 this mor christian, 8.2 later. White count is 5, platelet count 266. IMAGING STUDIES: CAT scan of the brain negative. Chest x-ray was reportedly negative. Abdomen and pelvis CAT scan normal except for questionable mucosal prominence in the left colon, diverticulosis but no diverticulitis. REVIEW OF SYSTEMS: The patient denies any dysphagia, odynophagia. Denies any hematemesis, retching . Denies overt diarrhea. Talking with the nurses, there has been no overt diarrhea. ASSESSMENT: 1. Delirium tremens. The patient is tachycardic, sweaty, and tremulous. Talked to the nurse, she is going to give a dose of Ativan. I have talked to the hospitalist going to change his BUCK protoco l. Be more aggressive. His alcohol level was 153 when he came in last night at 6:00 p.m. 2. Malnutrition. His magnesium is low, this will be replaced, we talked to the hospitalist. We ar e going to check magnesium, phosphorus, electrolytes later again today. He will need to be on D5 no rmal saline with his low glucose on admission and will need to receive multivitamin, thiamine, and f olate daily. He received this IV earlier today. He is ordered for p.o. tomorrow. If he cannot take p.o., he will need to be made IV again then. 2. With regard to gastrointestinal bleeding, the patient reports had some melena or bright red bloo d. He has had bright red blood in the past. He has had upper and lower endoscopies apparently in t he recent past in our office must check those records present. There are no signs of acute gastroin testinal bleeding, although stool is somewhat coffee-ground like. He is appropriately started on t he IV Protonix q.12 hours and serial H\T\Hs have been ordered, which is reasonable. He can have martha ar liquids and we will watch him. 3. I think, he has a broken right shoulder. It is deformed grossly and has bruising all over and h e will not move it and this needs to be x-rayed. I have talked to the hospitalist and ordered that. Physical exam in the emergency room noted a normal upper and lower extremities, but the patient st ates that the bruises have been present for several days. 4. History of Clostridium difficile antigen positive, toxin negative. At last admission, he has a thickening mucosa of the sigmoid colon and rectum. I will start him on probiotics and get a Clostri dium difficile toxin.
[2017-04-09] MEDS: cefTRIAXone\\ROCEPHIN 1 GM, Syringe 0.4 ML in Sterile Water 9.6 ML SLOW IVP SCH (01:58)
[2017-04-09] MEDS: D5 0.9% NS w/ 20 mEq KCl 1,000 ML IV SCH ×3 (01:59→21:16)
[2017-04-09] MEDS ORDERED: Lorazepam 1 MG TAB PO SCH (02:00)
[2017-04-09 06:37] LABS: Band 1 % (5-11); Hematocrit 28.2 % (42.0-52.0); Mean Platelet Volume 6.1 fL (7.4-10.4); Neutrophil 49 % (42-75); Red Blood Cell (RBC) Count 2.78 mill/uL (4.70-6.10); White Blood Cell (WBC) Count 3.3 thou/uL (4.8-10.8)
[2017-04-09 06:42] LABS: Anion Gap 12 mmol/L (10-20); BUN (Urea Nitrogen) 5 mg/dL (8.4-25.7); Calc. Creatinine Clearance 0 mL/min (70-130); Calcium 8.4 mg/dL (7.8-10.44); Carbon Dioxide 26 mmol/L (23-31); Chloride 104 mmol/L (98-107); Estimated GFR-MDRD Greater than 90; Magnesium 1.3 mg/dL (1.6-2.6); Phosphorus 3.1 mg/dL (2.3-4.7)
[2017-04-09] MEDS: Calcium Carbonate + Vit D 1 TAB PO SCH ×2 (08:05→17:45)
[2017-04-09] MEDS: Atenolol 25 MG TAB PO SCH (08:06)
[2017-04-09] MEDS: Cyanocobalamin (Vitamin B-12) 1,000 MCG TAB PO SCH (08:06)
[2017-04-09] MEDS: Doxycycline 100 MG CAP PO SCH ×2 (08:06→21:02)
[2017-04-09] MEDS: Saccharomyces boulardii 250 MG CAP PO SCH (08:07)
[2017-04-09] MEDS: Multivit, Therapeutic 1 TAB PO SCH (08:07)
[2017-04-09] MEDS: Pantoprazole 40 MG VIAL IVP SCH ×2 (08:07→21:03)
[2017-04-09] MEDS: Folic Acid 1 MG TAB PO SCH (08:07)
[2017-04-09] MEDS: Lorazepam 1 MG TAB PO PRN ×3 (08:16→21:02)
[2017-04-09] MEDS ORDERED: Magnesium 2 GM/NS 0.9% 100 ML 4 GM in Premix Bag 1 BAG IVPB SCH (09:45)
[2017-04-09] MEDS ORDERED: Escitalopram Oxalate 10 mg Tablet PO SCH (11:00)
--- NOTE | 2017-04-09 14:26 | PRG ---
DATE OF SERVICE: 04/09/2017 SUBJECTIVE: Mr. Tran is eating well. He has had no vomiting, no melena or bleeding. OBJECTIVE: VITAL SIGNS: Temperature is 98, pulse 93 and blood pressure 172/110. ABDOMEN: Soft and nontender. LABORATORY STUDIES: White count 3.3, hemoglobin 9.2, platelet count 171. Sodium 138, potassium 3.6 , BUN and creatinine are 5 and 0.7, glucose 79, magnesium 1.3 and phosphorus 3.1. X-RAY FINDINGS: X-ray from yesterday did show fracture of the right clavicle. ASSESSMENT: 1. Alcohol withdrawal. 2. Pancytopenia secondary to alcoholism. 3. Questionable history of heme positive stool. Patient had recent upper and lower endoscopy in with severe LA grade D reflux esophagitis, normal colonoscopy. These do not need to be repeat ed. 4. Electrolyte abnormality secondary to alcohol abuse including low magnesium. RECOMMENDATIONS: 1. Continue to treat delirium tremens. 2. Continue PPI therapy for history of esophagitis and alcohol abuse. 3. Continue to check and replace electrolytes as needed. 4. At this time, no further need for endoscopy. We will sign off. If I can be of any further assistance, please do not hesitate to contact me.
--- NOTE | 2017-04-09 14:53 | PDOC.PN ---
- Subjective Encounter Start Date: 04/09/17 Encounter Start Time: 10:30 Pt sen and examined. tremulous. Had discussed with nursing yesterday to change to ativan with ASE 5 or more, but ASE level not changed. Tremulous, hypertensive, tearful and remoresful. No F/C, no n/V/D/C, no CP or sOB. conveyed results of clavicle fracture, discussed Inpatient rehab and pt is agreeable. referrals made 10 point ROS performed and neg for all except as above - Objective Resuscitation Status: Resuscitation Status FULL:Full Resuscitation MAR Reviewed: Yes Vital Signs & Weight: Vital Signs (12 hours) Temp Pulse Resp BP BP BP Pulse Ox 04/09/17 12:00 98.8 F 75 17 146/75 H 95 04/09/17 09:51 179/83 H 136/72 04/09/17 08:06 93 04/09/17 08:00 98.0 F 93 19 172/110 H 97 04/09/17 04:49 98.7 F 75 17 159/79 H 97 Weight Admit Weight 171 lb 4.8 oz Weight 5.975 oz I&O: 04/08/17 04/09/17 04/10/17 06:59 06:59 06:59 Intake Total 1597 3262 Output Total 875 3075 Balance 722 187 Result Diagrams: 04/09/17 05:32 04/09/17 05:32 Additional Labs: Accuchecks 04/09/17 04/09/17 04/09/17 11:41 09:24 04:10 POC Glucose 98 110 80 04/09/17 04/08/17 04/08/17 01:21 21:27 16:30 POC Glucose 88 96 79 Radiology Reviewed by me: Yes EKG Reviewed by me: Yes Phys Exam - Physical Examination Constitutional: NAD HEENT: PERRLA, moist MMs, sclera anicteric, oral pharynx no lesions Neck: no nodes, no JVD, supple, full ROM Respiratory: no wheezing, no rales, no rhonchi, clear to auscultation bilateral Cardiovascular: no significant murmur, no rub tachy, regular Gastrointestinal: soft, non-tender, no distention, positive bowel sounds Musculoskeletal: no edema, pulses present Neurological: non-focal, normal sensation, moves all 4 limbs anxious, tremulous Lymphatic: no nodes Psychiatric: normal affect, A&O x 3 Skin: no rash, normal turgor, cap refill <2 seconds Dx/Plan (1) Right clavicle fracture Code(s): S42.001A - FRACTURE OF UNSP PART OF RIGHT CLAVICLE, INIT FOR CLOS FX Status: Acute Comment: acute, secondary to fall. Sling, discussed iw ortho , outpatient followup in 2-3 weeks (2) Alcohol withdrawal syndrome Code(s): F10.239 - ALCOHOL DEPENDENCE WITH WITHDRAWAL, UNSPECIFIED Status: Acute Qualifiers: Complication of substance-induced condition: uncomplicated Qualified Code(s ): F10.230 - Alcohol dependence with withdrawal, uncomplicated Comment: po ativan PRN ASE 5 or more. continue protocool with q4 hours checks (3) Chronic alcohol use Code(s): F10.10 - ALCOHOL ABUSE, UNCOMPLICATED Status: Chronic (4) DM type 2 (diabetes mellitus, type 2) Status: Chronic Qualifiers: Diabetes mellitus complication status: without complication Diabetes mellitus supervisor intermediates insulin use: without supervisor intermediates use Qualified Code(s): E11.9 - Type 2 diabetes mellitus without complications (5) History of prostate cancer Code(s): Z85.46 - PERSONAL HISTORY OF MALIGNANT NEOPLASM OF PROSTATE Status: Chronic Comment: Encouraged to continue with urology outpatient (6) Hypertension Code(s): I10 - ESSENTIAL (PRIMARY) HYPERTENSION Status: Chronic Qualifiers: Hypertension type: essential hypertension Qualified Code(s): I10 - Essential (primary) hypertension (7) Syncope Code(s): R55 - SYNCOPE AND COLLAPSE Status: Acute Comment: ? due to orthostasis? will get orthostatics today. Continue IV fluids - Plan * .
[2017-04-09] MEDS: Acetaminophen 325 MG TAB PO PRN (14:59)
[2017-04-10] MEDS: cefTRIAXone\\ROCEPHIN 1 GM, Syringe 0.4 ML in Sterile Water 9.6 ML SLOW IVP SCH (02:42)
[2017-04-10 05:03] LABS: Anion Gap 11 mmol/L (10-20); BUN (Urea Nitrogen) 5 mg/dL (8.4-25.7); Calc. Creatinine Clearance 95 mL/min (70-130); Calcium 8.6 mg/dL (7.8-10.44); Carbon Dioxide 24 mmol/L (23-31); Chloride 105 mmol/L (98-107); Estimated GFR-MDRD 86; Magnesium 1.4 mg/dL (1.6-2.6)
[2017-04-10 05:21] LABS: Hematocrit 27.6 % (42.0-52.0); Mean Platelet Volume 6.5 fL (7.4-10.4); Neutrophil 45 % (42-75); Red Blood Cell (RBC) Count 2.74 mill/uL (4.70-6.10); White Blood Cell (WBC) Count 3.4 thou/uL (4.8-10.8)
[2017-04-10] MEDS: Atenolol 25 MG TAB PO SCH (08:37)
[2017-04-10] MEDS: Calcium Carbonate + Vit D 1 TAB PO SCH ×2 (08:37→16:23)
[2017-04-10] MEDS: Folic Acid 1 MG TAB PO SCH (08:37)
[2017-04-10] MEDS: Multivit, Therapeutic 1 TAB PO SCH (08:37)
[2017-04-10] MEDS: Doxycycline 100 MG CAP PO SCH ×2 (08:37→21:15)
[2017-04-10] MEDS: Saccharomyces boulardii 250 MG CAP PO SCH (08:38)
[2017-04-10] MEDS: Pantoprazole 40 MG VIAL IVP SCH ×2 (08:38→21:15)
[2017-04-10] MEDS: Cyanocobalamin (Vitamin B-12) 1,000 MCG TAB PO SCH (08:38)
[2017-04-10] MEDS: Escitalopram Oxalate 10 mg Tablet PO SCH (08:38)
[2017-04-10] MEDS ORDERED: Escitalopram Oxalate 10 mg Tablet PO SCH (09:00)
[2017-04-10] MEDS ORDERED: Magnesium Sulfate 4 GM in Sodium Chloride 0.9% 250 ML 250 ML IVPB SCH (10:15)
[2017-04-10] MEDS: Lorazepam 1 MG TAB PO PRN ×2 (11:06→16:25)
--- NOTE | 2017-04-10 14:21 | PDOC.PN ---
- Subjective Encounter Start Date: 04/10/17 Encounter Start Time: 10:10 PT seen and examined earlier on rounds. Pt less shake and agitated, but has some tremors and said he is being brought and ativan tablet. No Seizures, no LOC, no AMS overnight Deneis F/C, no N/V/D/C, no CP or SOB, no GI bleeding. Had diarrhea starting early this morning, small to mod volume mostly watery. 10 point ROS performed and neg x as per HPI. - Objective Resuscitation Status: FULL MAR Reviewed: Yes Vital Signs & Weight: Vital Signs (12 hours) Temp Pulse Resp BP BP Pulse Ox 04/10/17 11:12 99.5 F 71 20 153/73 H 96 04/10/17 11:00 164/72 H 04/10/17 08:37 83 164/72 H 04/10/17 08:35 98.9 F 83 18 164/72 H 95 04/10/17 08:00 99.5 F 71 20 95 04/10/17 04:00 99.6 F 76 18 151/76 H 96 Weight Admit Weight 171 lb 4.8 oz Weight 175 lb 3.2 oz I&O: 04/09/17 04/10/17 04/11/17 06:59 06:59 06:59 Intake Total 3262 2300 Output Total 3075 1100 Balance 187 1200 Result Diagrams: 04/10/17 04:10 04/10/17 04:10 Additional Labs: Accuchecks 04/10/17 04/10/17 04/10/17 11:44 08:40 05:34 POC Glucose 118 H 132 H 108 04/09/17 04/09/17 20:25 16:15 POC Glucose 98 125 H Radiology Reviewed by me: Yes EKG Reviewed by me: Yes Phys Exam - Physical Examination Constitutional: NAD HEENT: PERRLA, moist MMs, sclera anicteric, oral pharynx no lesions Neck: no nodes, no JVD, supple, full ROM Respiratory: no wheezing, no rales, no rhonchi, clear to auscultation bilateral Cardiovascular: RRR, no significant murmur, no rub Gastrointestinal: soft, non-tender, no distention, positive bowel sounds Musculoskeletal: no edema, pulses present Neurological: non-focal, normal sensation, moves all 4 limbs tremulous, CN intact 2-12. normal speech pattern Lymphatic: no nodes Psychiatric: normal affect, A&O x 3 Skin: no rash, normal turgor, cap refill <2 seconds Dx/Plan (1) Right clavicle fracture Code(s): S42.001A - FRACTURE OF UNSP PART OF RIGHT CLAVICLE, INIT FOR CLOS FX Status: Acute Comment: acute, secondary to fall. Sling, discussed iw ortho , outpatient followup in 2-3 weeks (2) Alcohol withdrawal syndrome Code(s): F10.239 - ALCOHOL DEPENDENCE WITH WITHDRAWAL, UNSPECIFIED Status: Acute Qualifiers: Complication of substance-induced condition: uncomplicated Qualified Code(s ): F10.230 - Alcohol dependence with withdrawal, uncomplicated Comment: po ativan PRN ASE 5 or more. continue protocol with q4 hours checks. September eto scheduled ativan taper later today (3) Chronic alcohol use Code(s): F10.10 - ALCOHOL ABUSE, UNCOMPLICATED Status: Chronic (4) DM type 2 (diabetes mellitus, type 2) Status: Chronic Qualifiers: Diabetes mellitus complication status: without complication Diabetes mellitus long term care phlebotomist insulin use: without snf use Qualified Code(s): E11.9 - Type 2 diabetes mellitus without complications (5) History of prostate cancer Code(s): Z85.46 - PERSONAL HISTORY OF MALIGNANT NEOPLASM OF PROSTATE Status: Chronic Comment: Encouraged to continue with urology outpatient (6) Hypertension Code(s): I10 - ESSENTIAL (PRIMARY) HYPERTENSION Status: Chronic Qualifiers: Hypertension type: essential hypertension Qualified Code(s): I10 - Essential (primary) hypertension (7) Syncope Code(s): R55 - SYNCOPE AND COLLAPSE Status: Acute Comment: ? due to orthostasis? will get orthostatics today. Continue IV fluids - Plan cont current plan of care, PT/OT, psychotherapist social worker * .
[2017-04-10] MEDS: D5 0.9% NS w/ 20 mEq KCl 1,000 ML IV SCH (17:47)
[2017-04-10] MEDS ORDERED: traZODone HCl 50 MG TAB PO PRN (20:51)
[2017-04-11] MEDS: cefTRIAXone\\ROCEPHIN 1 GM, Syringe 0.4 ML in Sterile Water 9.6 ML SLOW IVP SCH (01:05)
[2017-04-11] MEDS: Calcium Carbonate + Vit D 1 TAB PO SCH ×2 (08:29→16:43)
[2017-04-11] MEDS: Cyanocobalamin (Vitamin B-12) 1,000 MCG TAB PO SCH (08:29)
[2017-04-11] MEDS: Multivit, Therapeutic 1 TAB PO SCH (08:29)
[2017-04-11] MEDS: Folic Acid 1 MG TAB PO SCH (08:29)
[2017-04-11] MEDS: Atenolol 25 MG TAB PO SCH (08:30)
[2017-04-11] MEDS: Pantoprazole 40 MG VIAL IVP SCH (08:30)
[2017-04-11] MEDS: Doxycycline 100 MG CAP PO SCH (08:30)
[2017-04-11] MEDS: Saccharomyces boulardii 250 MG CAP PO SCH (08:30)
[2017-04-11] MEDS: Escitalopram Oxalate 10 mg Tablet PO SCH (08:30)
[2017-04-11] MEDS: Lorazepam 1 MG TAB PO PRN (12:41)
[2017-04-11 16:46] VITALS: BP 145/74; TEMP 99.2
--- NOTE | 2017-04-12 01:29 | DIS ---
DATE OF ADMISSION: 04/07/2017 DATE OF DISCHARGE: 04/11/2017 DISCHARGE DIAGNOSES: 1. Generalized weakness status post mechanical falls. 2. Right distal clavicle fracture status post fall, nonoperative management. 3. Alcohol withdrawal syndrome. 4. Chronic alcohol abuse. 5. Diabetes mellitus, type 2, stable. 6. Hypertension, stable. 7. Status post syncopal episode secondary to alcohol intoxication. 8. Chronic macrocytic anemia. 9. Hypomagnesemia. CONSULTATIONS: Dr. Jean with GI Service. PERTINENT LAB AND X-RAY FINDINGS: Total CK of 247, lipase 35. Phosphorus ranged between 2.5-3.1, m agnesium level ranged between 1.2-1.8, serum iron level 173, TIBC 249, ferritin 111.4. CBC showed a hemoglobin ranging between 7.9-9.2, MCV 101. Plasma alcohol level 153 on 04/07/2017. Blood cultur es x2 from 04/08/2017 showed no growth at 48 hours. Stool Hemoccult positive x1 on 04/07/2017. Noni stridium difficile antigen positive, toxin negative on 04/10/2017. CT of the brain without contrast dated 04/07/2017 showed no acute intracranial process. Generalized atrophy noted. CT of the abdom en and pelvis dated 04/07/2017 showed colonic diverticulosis without diverticulitis. Three views of the right shoulder dated 04/08/2017 showed distal right clavicle fracture. HOSPITAL COURSE: The patient was admitted to the telemetry unit after initially presenting with diz ziness and falls. The patient with history of recurrent falls in the context of known chronic alcoh ol abuse with recent hospitalizations in 02/2017. The patient underwent general evaluation includin g multiple imaging studies showing no acute intracranial process. Right distal clavicle fracture wa s noted on plain radiographs with sling and right upper extremity mobilization. The patient was ashley luated by the GI Service during the hospital course due to heme positive stool in the context of chr onic alcoholism. The patient underwent serial hemoglobin evaluations with overall stable hemoglobin values. The patient was managed conservatively without acute intervention. The patient was treate d with IV Protonix and noted to stabilize with conservative measures. Due to patient's chronic alco holism and recurrent falls, the patient was evaluated for group home care at which point the wali alicia was deemed an appropriate candidate and approved [facility]. The patient counseled regarding the need for alcohol cessation during the hospital stay. Ove seven, the patient remained clinically stable for the remainder of the hospital course and ready for discharge on 04/11/2017. DISCHARGE MEDICATIONS: 1. Enteric-coated aspirin 81 mg 1 tab p.o. daily. 2. Tenormin 50 mg p.o. b.i.d. 3. Ferrous sulfate 325 mg p.o. daily. 4. Folic acid 1 mg p.o. daily. 5. Multivitamin 1 tab p.o. daily. 6. Protonix 40 mg 1 tab p.o. daily. 7. Thiamine 100 mg 1 tab p.o. daily. 8. Glyburide 5 mg p.o. q.a.m. 9. Trazodone 50 mg p.o. at bedtime. FOLLOWUP: The patient will follow up with Dr. Danny Lu within 7 days of discharge. CONDITION ON DISCHARGE: Fair. ACTIVITY: Ad joão. Rolling walker with standby assistance recommended. DIET: Heart healthy and ADA. CODE STATUS: FULL. DISPOSITION: Discharge to [facility] on 04/11/2017. Total time preparing and coordinating discharge is 32 minutes.
== END 2017-04-11 17:10 | DRG 897 ==
LOC: ERS 18:01 → 2NO 22:28 → OBSVTOIN 04-08 06:04
PROVIDERS: ADMIT Internal Medicine; ATTEND Internal Medicine
PROC: 2W38XYZ Immobilization of Right Upper Extremity using Other Device (ICD-10-PCS; principal; 2017-04-09)
DX: F10.231 Alcohol dependence with withdrawal delirium (principal); D61.818 Other pancytopenia; E11.40 Type 2 diabetes mellitus with diabetic neuropathy, unspecified; E11.649 Type 2 diabetes mellitus with hypoglycemia without coma; E46 Unspecified protein-calorie malnutrition; L03.115 Cellulitis of right lower limb; E83.42 Hypomagnesemia; I48.0 Paroxysmal atrial fibrillation; I10 Essential (primary) hypertension; L03.116 Cellulitis of left lower limb; K92.1 Melena; Z85.46 Personal history of malignant neoplasm of prostate; K57.90 Diverticulosis of intestine, part unspecified, without perforation or abscess without bleeding; D53.9 Nutritional anemia, unspecified; Y90.6 Blood alcohol level of 120-199 mg/100 ml; Z91.81 History of falling; S42.031A Displaced fracture of lateral end of right clavicle, initial encounter for closed fracture; W19.XXXA Unspecified fall, initial encounter; Z68.24 Body mass index [BMI] 24.0-24.9, adult
CPT/HCPCS: 36415; 36416; 70450; 71010; 74177; 80048; 80053; 80307; 82274; 82553; 82728; 83540; 83550; 83690; 83735; 84100; 84484; 85014; 85018; 85025; 85046; 85049; 86850; 86900; 86901; 87040; 87324; 87449; 87493; 93005; 96361; 96374; A4216; C9113; G8978-GP-CM; G8979-GP-CK; J0696; J2060; J3411; J3475; J7042; J7050

== ENCOUNTER 2017-05-17 10:54 | Inpatient (IN) | payer MEDICARE ==
[2017-05-17 11:45] LABS: #Basophils 0.1 thou/uL (0.0-0.2); #Lymphocytes 1.2 thou/uL (1.20-3.40); #Monocytes 0.9 thou/uL (0.11-0.59); %Basophils 1.2 % (0.0-1.0); %Eosinophils 0.1 % (0.0-10.0); %Lymphocytes 19.9 % (21.0-51.0); %Monocytes 13.7 % (0.0-10.0); %Neutrophils 65.2 % (42.0-75.0); Hemoglobin 11.5 g/dL (14.0-18.0); Mean Corpuscular HGB CONC 32.7 g/dL (32.0-36.0); Mean Corpuscular Hemoglobin 31.4 pg (27.0-31.0); Mean Platelet Volume 7.1 fL (7.4-10.4); Platelet Count 175 thou/uL (130-400); RBC Distribution Width 15.3 % (11.5-14.5); Red Blood Cell (RBC) Count 3.66 mill/uL (4.70-6.10); White Blood Cell (WBC) Count 6.2 thou/uL (4.8-10.8)
--- NOTE | 2017-05-17 12:04 | RAD ---
AP VIEW OF THE CHEST: INDICATION: Altered mental status. FINDINGS: Lungs are clear. Cardiomediastinal silhouette is within normal limits. Expected healing rib deformi ty involving the anterolateral 4th rib appears similar to the comparison. Vascular calcifications of the aortic arch are similar. The ununited right distal clavicle fracture is stable. IMPRESSION: 1. No acute cardiopulmonary abnormality. 2. Stable ununited right distal clavicle fracture and healing anterolateral left 4th rib fracture. POS: [facility]
[2017-05-17 12:09] LABS: ALT (SGPT) 16 U/L (8-55); AST (SGOT) 50 U/L (5-34); Acetaminophen Less than 6.0 mcg/mL (10.0-30.0); Albumin 4.2 g/dL (3.4-4.8); Alcohol Less than 10 mg/dL (Less than 10); Alkaline Phosphatase 73 U/L (40-150); Anion Gap 19 mmol/L (10-20); BUN (Urea Nitrogen) 25 mg/dL (8.4-25.7); Bilirubin, Total 1.6 mg/dL (0.2-1.2); CK (CPK) 1555 U/L (30-200); Calc. Creatinine Clearance 0 mL/min (70-130); Carbon Dioxide 26 mmol/L (23-31); Chloride 96 mmol/L (98-107); Estimated GFR-MDRD 66; Glucose 190 mg/dL (80-115); Lipase 31 U/L (8-78); Potassium 4.6 mmol/L (3.5-5.1); Protein, Total 8.2 g/dL (5.8-8.1); Salicylate Less than 8.0 mg/dL (15.0-30.0); Sodium 136 mmol/L (136-145)
[2017-05-17 12:10] LABS: CKMB 5.2 ng/mL (0-6.6); Troponin I 0.016 ng/mL (< 0.028)
--- NOTE | 2017-05-17 13:13 | CT ---
CT HEAD WITHOUT CONTRAST: Technique: Multiple tomograms were obtained through the head without IV enhancement. History: Mental status change. Comparison: 04-07-17 FINDINGS: Mild cortical volume loss again noted. There is no evidence of acute hemorrhage, mass, or infarct. No interval change noted. IMPRESSION: No acute finding or significant internal change. POS: [facility]
[2017-05-17] MEDS ORDERED: Piperacillin/Tazobactam 4.5 GM in Sodium Chloride 0.9% 100 ML IVPB SCH (14:00)
[2017-05-17] MEDS ORDERED: Vancomycin HCl 1 GM in Premix Bag 1 BAG IVPB SCH (14:00)
[2017-05-17 14:30] LABS: Bilirubin Moderate (Negative); Blood, Urine Small (Negative); Clarity CLEAR (Clear); Glucose, Urine (Dipstick) 250 mg/dL (Negative); Leukocyte Negative (Negative); Nitrite Negative (Negative); Protein, Urine (Dipstick) 100 mg/dL (Neg-Trace); Specific Gravity, Urine 1.023 (1.002-1.036)
[2017-05-17 14:33] LABS: Bacteria/HPF None Seen HPF (None Seen); Hyaline Casts/LPF 7-10 HYALINE CAST LPF (0-3 Hyaline); Pathc Cast-AUWi Flag 2.03 (0-2.49)
[2017-05-17 14:42] LABS: Amphetamine Not Detected (NotDetected); Barbiturates Screen Not Detected (NotDetected); Benzodiazepine Screen Detected (NotDetected); Cocaine Metabolite Screen Not Detected (NotDetected); Medtox Control Line Valid? VALID (VALID); Medtox Reader # READER 4; Methadone Not Detected (NotDetected); Methamphetamine Not Detected (NotDetected); Opiate Screen Not Detected (NotDetected); Oxycodone Screen Not Detected (NotDetected); Phencyclidine (PCP) Not Detected (NotDetected); THC/Cannabinoid Screen Not Detected (NotDetected); Tricyclic Screen Not Detected (NotDetected)
[2017-05-17 14:49] LABS: Renal Epithelial None Seen HPF (0-3); Transitional Epithelial NONE SEEN HPF (0-3)
[2017-05-17] MEDS ORDERED: Acetaminophen 500 MG TAB ONE (14:50)
[2017-05-17] MEDS ORDERED: Ondansetron ODT 4 MG TAB PO PRN (15:55)
[2017-05-17] MEDS ORDERED: Acetaminophen 650 MG Suppository PR PRN (15:55)
[2017-05-17] MEDS ORDERED: Acetaminophen 325 MG TAB PO PRN (15:55)
[2017-05-17] MEDS ORDERED: Ondansetron HCl/PF 4 MG/2 ML Vial IVP PRN (15:55)
[2017-05-17] MEDS ORDERED: Bisacodyl 5 MG TAB PO PRN (15:55)
[2017-05-17] MEDS ORDERED: Multivitamins, Adult 10 ML, Thiamine HCl 100 MG, Folic Acid 1 MG in Dextrose 5 %-0.45 %... IV SCH ×4 (17:45)
[2017-05-17] MEDS: Sodium Chloride 0.9% 1,000 ML IV SCH (18:00)
[2017-05-17] MEDS ORDERED: Piperacillin/Tazobactam 3.375 GM in Sodium Chloride 0.9% 100 ML IVPB SCH (21:00)
[2017-05-17] MEDS: traZODone HCl 50 MG TAB PO SCH (21:34)
[2017-05-17] MEDS: Atenolol 50 MG TAB PO SCH (21:34)
[2017-05-17] MEDS: Docusate 100 MG CAP PO SCH (21:35)
--- NOTE | 2017-05-17 21:58 | CON ---
DATE OF CONSULTATION: 05/17/2017 REFERRING PHYSICIAN: Klever Walker MD REASON FOR CONSULTATION: Left-sided weakness. HISTORY OF PRESENT ILLNESS: Mr. Tran is a pleasant 62-year-old male who has been consulted for evaluation of left-sided weakness. History is limited as patient is a poor historian and thus m ost of the history is obtained from the patient's medical record. Apparently, the patient was underg oing alcohol detoxing, his home health nurse noted that he was very rigid and found multiple alcohol bottles empty, there was full on Monday morning. She had mentioned that he has gone through withdraw als before, but he is acting much differently on today, which prompted her to call EMS and bring ariana ent to the [facility]. According to the nurse, the patient was noted by admitting hank guerrero as he felt that he was weak on his left side. For this reason, I am being asked to further ev aluate the patient. PAST MEDICAL HISTORY: Significant for prostate cancer, diabetes, hypertension, peripheral neuropathy . PAST SURGICAL HISTORY: Significant for left hip surgery, left first and second toes amputation, tons illectomy. SOCIAL HISTORY: He drinks on a daily basis. He denies smoking or illicit drug use. CURRENT MEDICATIONS: Please review MAR. ALLERGIES: No known drug allergies. FAMILY HISTORY: Noncontributory. REVIEW OF SYSTEMS: As mentioned above in HPI, otherwise negative. PHYSICAL EXAMINATION: VITAL SIGNS: Blood pressure of 151/77, pulse of 62, temperature of 100, respirations of 16, O2 sats 96% on room air. GENERAL: A well-developed, well-nourished male, in no apparent distress. RESPIRATORY: Clear to auscultation bilaterally. CARDIOVASCULAR: Regular rate and rhythm. NEUROLOGIC: Mental status: The patient is awake, alert, oriented x2. Speech and language: Fluent speech. There is mild dysarthria noted. Cranial nerves: Pupils are 3 mm and reactive. There is ho rizontal nystagmus noted on both sides. Extraocular muscles are intact. Face appears symmetric. To ngue and uvula are midline. Motor exam showed increased tone and rigidity of both upper extremities. He has action tremors in both upper extremities. His strength in both upper extremities and lower extremities is 5/5. Sensory: Sensation is intact and symmetric. Deep tendon reflexes: 1-2+ reflex es in both upper and lower extremities. Babinski plantar response is flexion on the right and on the left as well. Coordination intact to [id number] and finger tapping bilaterally. LABORATORY DATA: Reviewed, which included CBC, CMP, CPK, CK-MB, troponin, urinalysis and urine drug screen, serum alcohol level, which is significant for hemoglobin 11.5, hematocrit 35.2, glucose of 19 0, total bilirubin of 1.6, AST of 50. CPK of 1555, otherwise negative. IMAGING STUDIES: CT head without contrast was reviewed, which showed no acute intracranial abnormali ty. IMPRESSION: 1. Alcohol withdrawal. 2. Delirium tremens. ASSESSMENT AND PLAN: Mr. Tran is a pleasant 62-year-old male who presented with the rigidi ty and tremors in both of his extremities. This is likely suggestive of delirium tremens due to alco hol withdrawal. At this time, I will recommend obtaining MRI brain without contrast. He will need t o be started on a banana bag with thiamine 100 mg IV daily. He needs to be closely monitored for del irium tremens. Continue supportive care. Continue current medical management.
--- NOTE | 2017-05-17 22:30 | HP ---
PRIMARY CARE PHYSICIAN: Danny Lu M.D. CHIEF COMPLAINT: Found down at home. HISTORY OF PRESENT ILLNESS: This is a 62-year-old male with a known history of chronic alcoholism wi th multiple episodes of withdrawals as well as falls. He was recently in the hospital last month for dizziness with recurrent falls, who has sustained right clavicular fracture and he was discharged to [facility] on the of last month. He has been home for an unknown period of time, but has been having a home help worker come on 2-3 times a week. She saw him earlier in and noted that he was back to drinking alcohol. He also was increasingly weak and then he had had a fall, but was ambulatory at that time. She came back today and noted the patient was found on the floor, there was an empty bottle of liquor that had been full when she came by earlier in the we ek. The patient was unable to get up and he seemed pretty rigid, so EMS was called. Patient was not given any medication by EMS and in the emergency room, he has not received any benzodiazepines. He has been a little confused, but not in any acute distress and was found to have generalized weakness along with some left-sided leg arm and leg weakness compared to the right. The patient's alcohol lev el was negative. He was found to be febrile at 102 in the emergency room, but no source of fevers. It had been determined he had negative flu test, normal white blood cell count, normal chest x-ray an d urine negative for infection. The patient is being admitted for altered mental status along with f ever and rhabdomyolysis. PAST MEDICAL HISTORY: All history taken from the chart as the patient is unable to give limited info rmation. 1. Chronic alcoholism. 2. Paroxysmal atrial fibrillation, not an anticoagulation candidate. 3. Diabetes mellitus type 2 with diabetic neuropathy. 4. History of MRSA infection. 5. Chronic macrocytic anemia. 6. Hypertension. 7. Previous history of prostate cancer. 8. Slow GI bleed noted on last admission, but with a stable hemoglobin. PAST SURGICAL HISTORY: 1. Drainage of prepatellar bursitis. 2. Left first and second toe amputation in 05/2016. ALLERGIES: No known drug allergies. MEDICATIONS: The patient is not able to remember his medications. His medications list on discharge from the hospital: 1. Aspirin 81 mg daily. 2. Atenolol 50 mg twice a day. 3. Ferrous sulfate 325 mg daily. 4. Folic acid 1 mg daily. 5. Multivitamin 1 tablet daily. 6. Protonix 40 mg daily. 7. Thiamine 100 mg p.o. daily. 8. Glyburide 5 mg daily. 9. Trazodone 50 mg at night. FAMILY HISTORY: Positive for heart disease in his brother. SOCIAL HISTORY: The patient drinks heavily, unable to say how much. Does not report any tobacco or illicit drug use. Denies taking any Ativan or Valium any other benzodiazepines at home. REVIEW OF SYSTEMS: Unable to obtain secondary to the patient's altered mental status. He does deny any symptoms currently. PHYSICAL EXAMINATION: VITAL SIGNS: Blood pressure 152/69, pulse 55 and respirations 18. Most recent temperature is 102.5, he has been given Tylenol since then. O2 sat 95% on room air. GENERAL: This is a well-developed, well-nourished male in no acute distress who answers questions ve ry slowly alert and oriented to person and place only. He cannot give the time. He says since 1973. He does not know it is April. He does not remember anything that brought him into the hospital specifically. HEENT: Pupils are equal, round and reactive to light. Extraocular movements are intact. Oropharynx clear without lesions, erythema or exudate. NECK: Supple. No lymphadenopathy, no thyroid nodules or enlargement. No JVD. HEART: Regular rate and rhythm. No murmurs, rubs or gallops. LUNGS: Clear to auscultation bilaterally. No wheezes, crackles or rhonchi. ABDOMEN: Soft, nontender to palpation, normoactive bowel sounds. No hepatosplenomegaly or other mas ses. EXTREMITIES: No clubbing, cyanosis or edema. Patient has had some toes removed and he does have quinten e, what looks to be chronic abrasions that are scabbed over on his toes, bilateral feet without any e vidence of cellulitis. SKIN: No rashes or other lesions noted. NEUROLOGIC: The patient does have 4.5/5 strength in the left upper and lower extremities and 5/5 str ength in right upper and lower extremities. No facial droop, no other focal neurologic signs. LABORATORY AN IMAGING DATA: CBC: White blood cell count 6.2. Hemoglobin is 11.5, which is actually up from 9 last month. Platelet count normal. Complete metabolic panel was notable for a chloride o f 96. His creatinine is normal at 1.13, but that is elevated above what it typically runs in the 0.7 -0.8, glucose of 190, total bilirubin of 1.6, which is elevated compared to his last admission. AST elevated at 50 and ALT is normal at 16. Creatinine kinase is elevated at 1555. Albumin is normal. Cardiac marker set negative x1. Ammonia is negative at 30. Lactic acid normal at 2.0. TSH was norm al. Urinalysis shows protein, glucose, ketones, and small blood, but only 4-6 white blood cells. No bacteria, no leukocyte esterase or nitrites. Tox screen of his urine was positive for benzodiazepin es, which he is not being given as far as it can help any medical professional. No alcohol in his bl oodstream. X-ray: The patient had a CT scan done in the emergency room, which showed no acute intra cranial process. A chest x-ray was done in the emergency room; I did review the films as well as the radiologist's report. There is no evidence of effusion, infiltrate or other abnormality besides his previous clavicle fracture. ASSESSMENT AND PLAN: 1. Acute encephalopathy, uncertain if this is related to his chronic alcoholism or his febrile state versus drug use. He is uncertain where he got the benzodiazepines in his system. The patient also has a possibility of having had a stroke with his left side appearing to be more weak than his right side. We will admit patient to the stroke floor and we will do regular neuro checks. We will contin ue aspirin daily. 2. Chronic alcoholism likely and alcohol withdrawal currently. We will put patient on ASE protocol. 3. Rhabdomyolysis secondary to a possible fall and then patient not being able to move around or ge t up. We will put the patient on IV fluids, normal saline 100 mL per hour and follow his creatinine closely. 4. Diabetes mellitus type 2. Resume patient's oral hypoglycemics and check his blood sugars regular ly with insulin sliding scale. 5. Gastrointestinal prophylaxis with a history of some gastrointestinal blood loss. We will give pa tient Protonix daily. 6. Deep venous thrombosis prophylaxis. Put the patient on sequential compression devices and TEDs a long with Lovenox while he is in bed. 7. Febrile illness. This is possibly the source of patient's altered mental status given the lack o f a determined source, but with his changes in mental status, we will go ahead and continue antibioti cs that were started in the emergency room. He is currently on Zosyn and vancomycin. We will contin ue those and wait for blood cultures to come back. He also may benefit from a repeat chest x-ray aft er he has been rehydrated. CODE STATUS: Patient is not able to have a good code discussion at this time and is unable to name a [place] next of kin or power of employment attorney For now, he is a FULL CODE.
[2017-05-17] MEDS: Piperacillin/Tazobactam 3.375 GM in Sodium Chloride 0.9% 100 ML IVPB SCH (23:57)
[2017-05-18] MEDS: Vancomycin HCl 1 GM in Premix Bag 1 BAG IVPB SCH ×2 (00:41→11:46)
[2017-05-18] MEDS: Sodium Chloride 0.9% 1,000 ML IV SCH ×3 (03:51→22:18)
[2017-05-18] MEDS: Piperacillin/Tazobactam 3.375 GM in Sodium Chloride 0.9% 100 ML IVPB SCH ×4 (06:09→22:14)
[2017-05-18 06:24] LABS: #Lymphocytes 1.7 thou/uL (1.20-3.40); #Monocytes 0.6 thou/uL (0.11-0.59); #Neutrophils 3.2 thou/uL (1.40-6.50); %Basophils 0.4 % (0.0-1.0); %Eosinophils 0.7 % (0.0-10.0); %Monocytes 10.5 % (0.0-10.0); %Neutrophils 57.5 % (42.0-75.0); Hemoglobin 11.4 g/dL (14.0-18.0); Mean Corpuscular HGB CONC 32.4 g/dL (32.0-36.0); Mean Corpuscular Hemoglobin 31.5 pg (27.0-31.0); Mean Corpuscular Volume 97.1 fl (80.0-94.0); Mean Platelet Volume 7.3 fL (7.4-10.4); Platelet Count 146 thou/uL (130-400); RBC Distribution Width 14.9 % (11.5-14.5); Red Blood Cell (RBC) Count 3.61 mill/uL (4.70-6.10); White Blood Cell (WBC) Count 5.6 thou/uL (4.8-10.8)
[2017-05-18 06:52] LABS: Anion Gap 14 mmol/L (10-20); BUN (Urea Nitrogen) 20 mg/dL (8.4-25.7); CK (CPK) 970 U/L (30-200); Calc. Creatinine Clearance 74 mL/min (70-130); Carbon Dioxide 24 mmol/L (23-31); Chloride 101 mmol/L (98-107); Estimated GFR-MDRD 66; Glucose 97 mg/dL (80-115); Potassium 3.2 mmol/L (3.5-5.1); Sodium 136 mmol/L (136-145)
[2017-05-18] MEDS ORDERED: Multivitamins, Adult 10 ML, Thiamine HCl 100 MG, Folic Acid 1 MG in Dextrose 5 %-0.45 %... IV SCH ×4 (09:00)
[2017-05-18] MEDS ORDERED: Multivit, Therapeutic 1 TAB PO SCH (09:00)
[2017-05-18] MEDS ORDERED: Folic Acid 1 MG TAB PO SCH (09:00)
[2017-05-18] MEDS: glyBURIDE 5 MG TAB PO SCH (09:15)
[2017-05-18] MEDS: Aspirin 81 mg Enteric Coated Tablet PO SCH (09:17)
[2017-05-18] MEDS: Ferrous Sulfate 325 MG TAB PO SCH (09:17)
[2017-05-18] MEDS: Atenolol 50 MG TAB PO SCH ×2 (09:17→21:02)
[2017-05-18] MEDS: Enoxaparin Sodium 40 MG/0.4 ML SYRINGE SC SCH (09:18)
[2017-05-18] MEDS: Docusate 100 MG CAP PO SCH ×2 (09:18→21:03)
--- NOTE | 2017-05-18 10:47 | PDOC.PN ---
- Subjective Encounter Start Date: 05/18/17 Encounter Start Time: 10:50 Subjective: No complaints. Patient still not oriented to year, but knows date and -: situation. Denies having any alcohol in the past month. - Objective Resuscitation Status: Resuscitation Status FULL:Full Resuscitation MAR Reviewed: Yes Vital Signs & Weight: Vital Signs (12 hours) Temp Pulse Resp BP BP Pulse Ox 05/18/17 09:17 62 144/84 H 05/18/17 08:00 150/73 H 05/18/17 07:53 100.1 F H 62 20 150/73 H 98 05/18/17 04:22 99.4 F 58 L 16 124/66 99 05/18/17 04:00 124/66 05/18/17 00:41 125/64 05/18/17 00:08 99.2 F 63 18 125/61 93 L Weight Weight 171 lb 12.8 oz I&O: 05/17/17 05/18/17 05/19/17 06:59 06:59 06:59 Intake Total 1781 Output Total 250 Balance 1531 Result Diagrams: 05/18/17 05:58 05/18/17 05:58 Additional Labs: Accuchecks 05/18/17 05/17/17 05:36 21:04 POC Glucose 111 H 95 Phys Exam - Physical Examination Constitutional: NAD HEENT: moist MMs Respiratory: no wheezing, no rales, no rhonchi, clear to auscultation bilateral Cardiovascular: RRR, no significant murmur Gastrointestinal: soft, non-tender, positive bowel sounds Musculoskeletal: no edema Neurological: moves all 4 limbs shakey hands bilaterally Dx/Plan (1) Alcohol withdrawal syndrome Code(s): F10.239 - ALCOHOL DEPENDENCE WITH WITHDRAWAL, UNSPECIFIED Status: Acute Qualifiers: (2) Chronic alcohol use Code(s): F10.10 - ALCOHOL ABUSE, UNCOMPLICATED Status: Chronic (3) Chronic anemia Code(s): D64.9 - ANEMIA, UNSPECIFIED Status: Chronic (4) Hypokalemia Code(s): E87.6 - HYPOKALEMIA Status: Acute Comment: will replace orally (5) Paroxysmal atrial fibrillation Code(s): I48.0 - PAROXYSMAL ATRIAL FIBRILLATION Status: Chronic Comment: not an anticoagulation candidate due to alcoholism (6) Type 2 diabetes mellitus with peripheral neuropathy Code(s): E11.42 - TYPE 2 DIABETES MELLITUS WITH DIABETIC POLYNEUROPATHY Status : Chronic (7) Hypertension Code(s): I10 - ESSENTIAL (PRIMARY) HYPERTENSION Status: Chronic Qualifiers: Hypertension type: essential hypertension Qualified Code(s): I10 - Essential (primary) hypertension - Plan cont current plan of care, continue antibiotics, PT/OT, DVT proph w/lovenox, DVT proph w/SCDs Fever possibly due to DTs. Still without leukocytosis. Neg CXR. Will -: d/c abx if cultures still negative tomorrow. -: MRI per neurology recommendations. * . - Discharge Day Encounter end time: 11:20
[2017-05-18] MEDS ORDERED: Potassium Chloride 20 MEQ TAB PO SCH (11:15)
[2017-05-18] MEDS ORDERED: Diazepam 10 MG/2 ML SYRINGE IVP PRN (11:18)
[2017-05-18] MEDS ORDERED: Diazepam 5 MG TAB PO SCH (11:45)
[2017-05-18] MEDS ORDERED: Thiamine HCl 200 MG/2 ML VIAL IM SCH (11:45)
--- NOTE | 2017-05-18 13:45 | MRI ---
MRI BRAIN WITHOUT CONTRAST: HISTORY: Altered mental status, left extremity weakness. FINDINGS: Correlation is made with the previous day's CT scan. There are changes of cortical atrophy. The sung tricular size is appropriate and the basilar cisterns patent. No restricted diffusion is seen. No e vidence of infarct, hemorrhage, midline shift, or abnormal extraaxial fluid collections is seen. The re is mucosal disease in the paranasal sinuses and fluid in the right mastoid air cells. IMPRESSION: No CT evidence of acute intracranial process. POS: [facility]
[2017-05-18] MEDS: Diazepam 5 MG TAB PO PRN ×2 (17:26→21:09)
[2017-05-18] MEDS: traZODone HCl 50 MG TAB PO SCH (21:02)
[2017-05-18 23:29] LABS: Vancomycin, Trough 18.1 ug/mL
[2017-05-19] MEDS: Vancomycin HCl 1 GM in Premix Bag 1 BAG IVPB SCH ×3 (00:19→23:30)
[2017-05-19] MEDS: Diazepam 5 MG TAB PO PRN ×5 (01:15→20:47)
[2017-05-19] MEDS: Piperacillin/Tazobactam 3.375 GM in Sodium Chloride 0.9% 100 ML IVPB SCH ×4 (04:58→22:50)
[2017-05-19 05:10] LABS: #Eosinphils 0.1 thou/uL (0.0-0.7); #Lymphocytes 1.4 thou/uL (1.20-3.40); #Monocytes 0.5 thou/uL (0.11-0.59); #Neutrophils 3.6 thou/uL (1.40-6.50); %Basophils 0.5 % (0.0-1.0); %Lymphocytes 24.1 % (21.0-51.0); %Monocytes 9.7 % (0.0-10.0); %Neutrophils 63.7 % (42.0-75.0); Hemoglobin 10.9 g/dL (14.0-18.0); Mean Corpuscular HGB CONC 34.7 g/dL (32.0-36.0); Mean Corpuscular Volume 95.2 fl (80.0-94.0); Mean Platelet Volume 7.6 fL (7.4-10.4); Platelet Count 140 thou/uL (130-400); RBC Distribution Width 14.8 % (11.5-14.5); White Blood Cell (WBC) Count 5.6 thou/uL (4.8-10.8)
[2017-05-19 05:28] LABS: Anion Gap 14 mmol/L (10-20); BUN (Urea Nitrogen) 13 mg/dL (8.4-25.7); Calc. Creatinine Clearance 85 mL/min (70-130); Calcium 8.6 mg/dL (7.8-10.44); Carbon Dioxide 21 mmol/L (23-31); Chloride 102 mmol/L (98-107); Estimated GFR-MDRD 78; Glucose 102 mg/dL (80-115); Potassium 3.1 mmol/L (3.5-5.1); Sodium 134 mmol/L (136-145)
[2017-05-19] MEDS: Atenolol 50 MG TAB PO SCH ×2 (08:33→20:21)
[2017-05-19] MEDS: Docusate 100 MG CAP PO SCH ×2 (08:34→20:23)
[2017-05-19] MEDS: Folic Acid 1 MG TAB PO SCH (08:34)
[2017-05-19] MEDS: Aspirin 81 mg Enteric Coated Tablet PO SCH (08:34)
[2017-05-19] MEDS: Multivitamin W/ Minerals 1 TAB PO SCH (08:34)
[2017-05-19] MEDS: Ferrous Sulfate 325 MG TAB PO SCH (08:34)
[2017-05-19] MEDS: Enoxaparin Sodium 40 MG/0.4 ML SYRINGE SC SCH (08:35)
[2017-05-19] MEDS: glyBURIDE 5 MG TAB PO SCH (08:35)
[2017-05-19] MEDS ORDERED: Magnesium Oxide 400 MG TAB PO SCH (09:00)
--- NOTE | 2017-05-19 09:59 | PDOC.PN ---
- Subjective Encounter Start Date: 05/19/17 Encounter Start Time: 09:58 Patient seen at bedside. Still has an elevated ASE score. No seizures noted. Afebrile overnight. - Objective Resuscitation Status: Resuscitation Status FULL:Full Resuscitation MAR Reviewed: Yes Vital Signs & Weight: Vital Signs (12 hours) Temp Pulse Resp BP BP Pulse Ox 05/19/17 08:33 59 L 160/78 H 05/19/17 08:00 160/78 H 05/19/17 07:12 97.5 F L 59 L 20 160/78 H 92 L 05/19/17 04:33 140/71 05/19/17 04:13 98.2 F 77 20 140/71 99 05/19/17 00:45 150/75 H 05/19/17 00:05 98.3 F 77 20 150/75 H 98 Weight Admit Weight 179 lb 9.6 oz Weight 170 lb 14.4 oz I&O: 05/18/17 05/19/17 05/20/17 06:59 06:59 06:59 Intake Total 1781 3551 60 Output Total 250 Balance 1531 3551 60 Result Diagrams: 05/19/17 04:34 05/19/17 04:34 Additional Labs: Accuchecks 05/19/17 05/18/17 05/18/17 05:53 21:08 17:04 POC Glucose 105 130 H 105 05/18/17 10:48 POC Glucose 105 Phys Exam - Physical Examination Constitutional: NAD HEENT: moist MMs Neck: no JVD Respiratory: clear to auscultation bilateral Gastrointestinal: soft Musculoskeletal: no edema Neurological: moves all 4 limbs L hand tremor Deviation from normal: Awake, alert, oriented x1 Skin: no rash Dx/Plan (1) Hypokalemia Code(s): E87.6 - HYPOKALEMIA Status: Acute Comment: will replace orally (2) Alcohol withdrawal syndrome Code(s): F10.239 - ALCOHOL DEPENDENCE WITH WITHDRAWAL, UNSPECIFIED Status: Acute Qualifiers: (3) DM type 2 (diabetes mellitus, type 2) Status: Chronic Qualifiers: Diabetes mellitus complication status: without complication Diabetes mellitus network admin insulin use: without detention use Qualified Code(s): E11.9 - Type 2 diabetes mellitus without complications - Plan cont current plan of care, PT/OT, social media specialist, DVT proph w/SCDs * Continue with ASE Protocol. * Fevers (afebrile overnight) are most likely due to DTs * Replete electrolytes * IV Fluids * Daily Labs * Discontinue antibiotics if Blood cultures are negative * PT/OT
[2017-05-19] MEDS ORDERED: Potassium Chloride 20 MEQ TAB PO SCH (10:15)
[2017-05-19] MEDS: Sodium Chloride 0.9% 1,000 ML IV SCH ×2 (14:49→16:46)
[2017-05-19] MEDS ORDERED: Haloperidol Lactate 5 MG/ML VIAL SLOW IVP PRN (18:39)
[2017-05-19] MEDS: traZODone HCl 50 MG TAB PO SCH (20:22)
[2017-05-20] MEDS: Diazepam 5 MG TAB PO PRN ×2 (03:28→20:07)
[2017-05-20] MEDS: Sodium Chloride 0.9% 1,000 ML IV SCH ×4 (04:19→23:05)
[2017-05-20] MEDS: Piperacillin/Tazobactam 3.375 GM in Sodium Chloride 0.9% 100 ML IVPB SCH (04:48)
[2017-05-20 04:58] LABS: ALT (SGPT) 20 U/L (8-55); AST (SGOT) 45 U/L (5-34); Albumin 3.4 g/dL (3.4-4.8); Alkaline Phosphatase 50 U/L (40-150); Anion Gap 13 mmol/L (10-20); BUN (Urea Nitrogen) 10 mg/dL (8.4-25.7); Bilirubin, Total 0.8 mg/dL (0.2-1.2); Calc. Creatinine Clearance 80 mL/min (70-130); Carbon Dioxide 21 mmol/L (23-31); Chloride 108 mmol/L (98-107); Estimated GFR-MDRD 72; Globulin 3.1 g/dL (2.4-3.5); Glucose 123 mg/dL (80-115); Potassium 3.3 mmol/L (3.5-5.1); Protein, Total 6.5 g/dL (5.8-8.1); Sodium 139 mmol/L (136-145)
[2017-05-20] MEDS: Atenolol 50 MG TAB PO SCH ×2 (08:20→20:05)
[2017-05-20] MEDS: Multivitamin W/ Minerals 1 TAB PO SCH (08:21)
[2017-05-20] MEDS: glyBURIDE 5 MG TAB PO SCH (08:21)
[2017-05-20] MEDS: Folic Acid 1 MG TAB PO SCH (08:21)
[2017-05-20] MEDS: Docusate 100 MG CAP PO SCH ×2 (08:21→20:06)
[2017-05-20] MEDS: Aspirin 81 mg Enteric Coated Tablet PO SCH (08:21)
[2017-05-20] MEDS: Ferrous Sulfate 325 MG TAB PO SCH (08:21)
[2017-05-20] MEDS ORDERED: cloNIDine 0.1 MG TAB PO PRN (09:00)
[2017-05-20] MEDS ORDERED: hydrALAZINE 20 MG/ML VIAL SLOW IVP PRN (09:00)
[2017-05-20] MEDS ORDERED: Potassium Chloride 20 MEQ TAB PO SCH (09:15)
[2017-05-20 11:27] LABS: Vancomycin, Trough 24.1 ug/mL
[2017-05-20] MEDS: Enoxaparin Sodium 40 MG/0.4 ML SYRINGE SC SCH (13:03)
--- NOTE | 2017-05-20 15:35 | PDOC.PN ---
- Subjective Encounter Start Date: 05/20/17 Encounter Start Time: 15:33 Subjective: feels Ok. nursing reprots confusion & hallucination -: able to tell me that he is at [facility] -: denies any pain/discomfort - Objective Resuscitation Status: Resuscitation Status FULL:Full Resuscitation MAR Reviewed: Yes Vital Signs & Weight: Vital Signs (12 hours) Temp Pulse Pulse Pulse Resp BP BP 05/20/17 12:00 144/78 H 05/20/17 11:18 98.7 F 51 L 16 05/20/17 11:13 05/20/17 08:39 67 73 157/72 H 05/20/17 08:00 98.2 F 61 16 186/86 H 05/20/17 07:18 98.2 F 61 16 05/20/17 04:10 98.2 F 57 L 18 05/20/17 04:00 151/71 H BP BP Pulse Ox 05/20/17 12:00 05/20/17 11:18 168/79 H 100 05/20/17 11:13 97 05/20/17 08:39 154/75 H 05/20/17 08:00 05/20/17 07:18 186/86 H 100 05/20/17 04:10 151/71 H 100 05/20/17 04:00 Weight Admit Weight 179 lb 9.6 oz Weight 171 lb 9.6 oz I&O: 05/19/17 05/20/17 05/21/17 06:59 06:59 06:59 Intake Total 3551 3000 Output Total 3 Balance 3551 2997 Result Diagrams: 05/19/17 04:34 05/20/17 04:13 Additional Labs: Accuchecks 05/20/17 05/20/17 05/19/17 10:59 05:40 20:26 POC Glucose 146 H 110 86 05/19/17 16:31 POC Glucose 112 H Microbiology 05/17/17 13:29 Nasal swab Influenza Types A,B Direct EIA - Final 05/17/17 12:58 Venous blood - Right Hand Blood Culture - Preliminary NO GROWTH AT 48 HOURS 05/17/17 11:24 Venous blood - Left Arm Blood Culture - Preliminary NO GROWTH AT 48 HOURS 03/01/17 10:50 Urine clean catch Urine Culture - Preliminary NO GROWTH AT 24 HOURS 02/27/17 14:42 Venous blood - Right Hand Blood Culture - Preliminary NO GROWTH AT 48 HOURS 02/27/17 14:42 Venous blood - Left Hand Blood Culture - Preliminary NO GROWTH AT 48 HOURS Laboratory Tests 05/17/17 05/18/17 11:16 05:58 Creatine Kinase 1555 H 970 H Phys Exam - Physical Examination Constitutional: NAD sleeping but easily arousable HEENT: PERRLA, moist MMs, sclera anicteric, TM's clear, oral pharynx no lesions , 2+ tonsils Neck: no nodes, no JVD, supple, full ROM Respiratory: no wheezing, no rales, no rhonchi, clear to auscultation bilateral Cardiovascular: RRR, no significant murmur Gastrointestinal: soft, non-tender, no distention, positive bowel sounds Musculoskeletal: no edema, pulses present Neurological: non-focal, normal sensation, moves all 4 limbs Psychiatric: normal affect, A&O x 3 Skin: no rash Dx/Plan (1) Alcohol withdrawal syndrome Code(s): F10.239 - ALCOHOL DEPENDENCE WITH WITHDRAWAL, UNSPECIFIED Status: Acute Qualifiers: (2) DM type 2 (diabetes mellitus, type 2) Status: Chronic Qualifiers: Diabetes mellitus complication status: without complication Diabetes mellitus regional intermodal truck driver insulin use: without prison use Qualified Code(s): E11.9 - Type 2 diabetes mellitus without complications (3) History of prostate cancer Code(s): Z85.46 - PERSONAL HISTORY OF MALIGNANT NEOPLASM OF PROSTATE Status: Chronic Comment: Encouraged to continue with urology outpatient (4) Hypertension Code(s): I10 - ESSENTIAL (PRIMARY) HYPERTENSION Status: Chronic Qualifiers: Hypertension type: essential hypertension Qualified Code(s): I10 - Essential (primary) hypertension (5) Paroxysmal atrial fibrillation Code(s): I48.0 - PAROXYSMAL ATRIAL FIBRILLATION Status: Chronic Comment: not an anticoagulation candidate due to alcoholism (6) Type 2 diabetes mellitus with peripheral neuropathy Code(s): E11.42 - TYPE 2 DIABETES MELLITUS WITH DIABETIC POLYNEUROPATHY Status : Chronic (7) Hypokalemia Code(s): E87.6 - HYPOKALEMIA Status: Acute Comment: will replace orally - Plan DVT proph w/SCDs Add Librium.cont ASE protocol.cont MV,Thiamine,FA -: not safe for DC yet. -: hemodynamically stable. -: replace and recheck Potassium -: no more fever/seizures.monitor * . Review of Systems - Review of Systems Constitutional: weakness, malaise ENT: negative: Ear Pain, Ear Discharge, Nose Pain, Nose Discharge, Nose Congestion, Mouth Pain, Mouth Swelling, Throat Pain, Throat Swelling, Other Respiratory: negative: Cough, Dry, Shortness of Breath, Hemoptysis, SOB with Excertion, Pleuritic Pain, Sputum, Wheezing Cardiovascular: negative: chest pain, palpitations, orthopnea, paroxysmal nocturnal dyspnea, edema, light headedness, other Gastrointestinal: negative: Nausea, Vomiting, Abdominal Pain, Diarrhea, Constipation, Melena, Hematochezia, Other Genitourinary: negative: Dysuria, Frequency, Incontinence, Hematuria, Retention , Other Musculoskeletal: negative: Neck Pain, Shoulder Pain, Arm Pain, Back Pain, Hand Pain, Leg Pain, Foot Pain, Other Neurological: Confusion. negative: Weakness, Numbness, Incoordination, Change in Speech, Seizures, Other - Medications/Allergies Allergies/Adverse Reactions: Allergies Allergy/AdvReac Type Severity Reaction Status Date / Time No Known Drug Allergies Allergy Verified 03/13/17 17:22 Medications: Current Medications Acetaminophen (Tylenol) 650 mg PO Q4H PRN PRN Reason: Headache/Fever or Pain Acetaminophen (Tylenol) 650 mg [place] Q4H PRN PRN Reason: Headache/Fever or Pain Aspirin (Ecotrin) 81 mg PO DAILY [facility] Last Admin: 05/20/17 08:21 Dose: 81 mg Atenolol (Tenormin) 50 mg PO BID [facility] Last Admin: 05/20/17 08:20 Dose: 50 mg Bisacodyl (Dulcolax) 10 mg PO DAILYPRN PRN PRN Reason: Constipation Chlordiazepoxide HCl (Librium) 25 mg PO TID [facility] Clonidine (Catapres) 0.1 mg PO Q4H PRN PRN Reason: SBP>160 Diazepam (Valium) 5 mg PO Q4H PRN PRN Reason: FOR ASE 10 OR GREATER Last Admin: 05/20/17 03:28 Dose: 5 mg Docusate Sodium (Colace) 100 mg PO BID [facility] Last Admin: 05/20/17 08:21 Dose: Not Given Enoxaparin Sodium (Lovenox) 40 mg SC 0900 [facility] Last Admin: 05/20/17 13:03 Dose: 40 mg Ferrous Sulfate (Feosol) 325 mg PO DAILY [facility] Last Admin: 05/20/17 08:21 Dose: 325 mg Folic Acid (Folvite) 1 mg PO DAILY [facility] Last Admin: 05/20/17 08:21 Dose: 1 mg Gabapentin (Neurontin) 300 mg PO TID [facility] Glyburide (Diabeta) 5 mg PO QAM-WM [facility] Last Admin: 05/20/17 08:21 Dose: 5 mg Haloperidol Lactate (Haldol) 5 mg SLOW IVP Q4H PRN PRN Reason: Agitation Hydralazine HCl (Apresoline) 10 mg SLOW IVP Q4H PRN PRN Reason: SBP>170 Sodium Chloride (Normal Saline 0.9%) 1,000 mls @ 100 mls/hr IV .Q10H [facility] Last Admin: 05/20/17 04:48 Dose: 1,000 mls Iron/Minerals/Multivitamins (Theragran M) 1 tab PO DAILY [facility] Last Admin: 05/20/17 08:21 Dose: 1 tab Miscellaneous Medication (Pharmacy To Dose) 1 each IVPB ONE [facility] Stop: 06/16/17 16:46 Ondansetron HCl (Zofran Odt) 4 mg PO Q6H PRN PRN Reason: Nausea/Vomiting Ondansetron HCl (Zofran) 4 mg IVP Q6H PRN PRN Reason: Nausea/Vomiting Pantoprazole Sodium (Protonix) 40 mg PO 2100 [facility] Last Admin: 05/19/17 20:21 Dose: 40 mg Thiamine HCl (Thiamine) 100 mg PO DAILY [facility] Last Admin: 05/20/17 08:20 Dose: 100 mg Trazodone HCl (Desyrel) 50 mg PO HS [facility] Last Admin: 05/19/17 20:22 Dose: 50 mg
[2017-05-20] MEDS ORDERED: chlordiazePOXIDE HCl 25 MG CAP PO SCH (15:45)
[2017-05-20] MEDS: Gabapentin 300 MG CAP PO SCH ×2 (17:47→20:06)
[2017-05-20] MEDS: chlordiazePOXIDE HCl 25 MG CAP PO SCH (20:06)
[2017-05-20] MEDS: traZODone HCl 50 MG TAB PO SCH (20:06)
[2017-05-21] MEDS: Sodium Chloride 0.9% 1,000 ML IV SCH (01:12)
[2017-05-21 05:35] LABS: Anion Gap 12 mmol/L (10-20); BUN (Urea Nitrogen) 7 mg/dL (8.4-25.7); Calc. Creatinine Clearance 110 mL/min (70-130); Calcium 8.7 mg/dL (7.8-10.44); Carbon Dioxide 21 mmol/L (23-31); Chloride 112 mmol/L (98-107); Estimated GFR-MDRD Greater than 90; Potassium 3.1 mmol/L (3.5-5.1); Sodium 142 mmol/L (136-145)
[2017-05-21 05:48] LABS: Glucose 56 mg/dL (80-115)
[2017-05-21] MEDS: Docusate 100 MG CAP PO SCH ×2 (08:29→20:47)
[2017-05-21] MEDS: Multivitamin W/ Minerals 1 TAB PO SCH (08:29)
[2017-05-21] MEDS: Enoxaparin Sodium 40 MG/0.4 ML SYRINGE SC SCH (08:29)
[2017-05-21] MEDS: D5 1/2 NS w/20 mEq KCL 1,000 ML IV SCH (08:29)
[2017-05-21] MEDS: Gabapentin 300 MG CAP PO SCH ×3 (08:29→20:46)
[2017-05-21] MEDS: Atenolol 50 MG TAB PO SCH ×2 (08:29→20:46)
[2017-05-21] MEDS: Aspirin 81 mg Enteric Coated Tablet PO SCH (08:30)
[2017-05-21] MEDS: chlordiazePOXIDE HCl 25 MG CAP PO SCH ×3 (08:30→20:47)
[2017-05-21] MEDS: Folic Acid 1 MG TAB PO SCH (08:30)
[2017-05-21] MEDS: Ferrous Sulfate 325 MG TAB PO SCH (08:30)
--- NOTE | 2017-05-21 17:39 | PDOC.PN ---
- Subjective Encounter Start Date: 05/21/17 Encounter Start Time: 17:38 Subjective: feels much better. no hallucinations - Objective Resuscitation Status: Resuscitation Status FULL:Full Resuscitation MAR Reviewed: Yes Vital Signs & Weight: Vital Signs (12 hours) Temp Pulse Resp BP BP BP Pulse Ox 05/21/17 16:33 98.1 F 65 16 176/99 H 97 05/21/17 16:01 98.2 F 58 L 16 98 05/21/17 12:12 98.2 F 58 L 16 154/84 H 98 05/21/17 12:00 154/84 H 05/21/17 08:30 98.8 F 68 16 152/90 H 97 05/21/17 08:29 150/84 H Weight Admit Weight 179 lb 9.6 oz Weight 176 lb 4.8 oz I&O: 05/20/17 05/21/17 05/22/17 06:59 06:59 06:59 Intake Total 3000 1900 Output Total 3 1 Balance 2997 1899 Result Diagrams: 05/19/17 04:34 05/21/17 05:09 Additional Labs: Accuchecks 05/21/17 05/21/17 05/21/17 13:23 05:49 05:22 POC Glucose 117 H 98 67 L 05/20/17 20:13 POC Glucose 104 Phys Exam - Physical Examination Constitutional: NAD HEENT: PERRLA, moist MMs, sclera anicteric, oral pharynx no lesions, 2+ tonsils Neck: no nodes, no JVD, supple, full ROM Respiratory: no wheezing, no rales, no rhonchi, clear to auscultation bilateral Cardiovascular: RRR, no significant murmur Gastrointestinal: soft, non-tender, no distention, positive bowel sounds Musculoskeletal: no edema, pulses present Neurological: non-focal, normal sensation, moves all 4 limbs Psychiatric: normal affect, A&O x 3 Skin: no rash Dx/Plan (1) Alcohol withdrawal syndrome Code(s): F10.239 - ALCOHOL DEPENDENCE WITH WITHDRAWAL, UNSPECIFIED Status: Acute Qualifiers: (2) DM type 2 (diabetes mellitus, type 2) Status: Chronic Qualifiers: Diabetes mellitus complication status: without complication Diabetes mellitus plant technical specialist insulin use: without skilled nursing use Qualified Code(s): E11.9 - Type 2 diabetes mellitus without complications (3) History of prostate cancer Code(s): Z85.46 - PERSONAL HISTORY OF MALIGNANT NEOPLASM OF PROSTATE Status: Chronic Comment: Encouraged to continue with urology outpatient (4) Hypertension Code(s): I10 - ESSENTIAL (PRIMARY) HYPERTENSION Status: Chronic Qualifiers: Hypertension type: essential hypertension Qualified Code(s): I10 - Essential (primary) hypertension (5) Paroxysmal atrial fibrillation Code(s): I48.0 - PAROXYSMAL ATRIAL FIBRILLATION Status: Chronic Comment: not an anticoagulation candidate due to alcoholism (6) Type 2 diabetes mellitus with peripheral neuropathy Code(s): E11.42 - TYPE 2 DIABETES MELLITUS WITH DIABETIC POLYNEUROPATHY Status : Chronic (7) Hypokalemia Code(s): E87.6 - HYPOKALEMIA Status: Acute Comment: will replace orally - Plan cont Librium detox.prn ativan.clinically better -: likley home in am -: am labs * . Review of Systems - Review of Systems Constitutional: negative: fever, chills, sweats, weakness, malaise, other ENT: negative: Ear Pain, Ear Discharge, Nose Pain, Nose Discharge, Nose Congestion, Mouth Pain, Mouth Swelling, Throat Pain, Throat Swelling, Other Respiratory: negative: Cough, Dry, Shortness of Breath, Hemoptysis, SOB with Excertion, Pleuritic Pain, Sputum, Wheezing Cardiovascular: negative: chest pain, palpitations, orthopnea, paroxysmal nocturnal dyspnea, edema, light headedness, other Gastrointestinal: negative: Nausea, Vomiting, Abdominal Pain, Diarrhea, Constipation, Melena, Hematochezia, Other Genitourinary: negative: Dysuria, Frequency, Incontinence, Hematuria, Retention , Other Musculoskeletal: negative: Neck Pain, Shoulder Pain, Arm Pain, Back Pain, Hand Pain, Leg Pain, Foot Pain, Other Neurological: negative: Weakness, Numbness, Incoordination, Change in Speech, Confusion, Seizures, Other - Medications/Allergies Allergies/Adverse Reactions: Allergies Allergy/AdvReac Type Severity Reaction Status Date / Time No Known Drug Allergies Allergy Verified 03/13/17 17:22 Medications: Current Medications Acetaminophen (Tylenol) 650 mg PO Q4H PRN PRN Reason: Headache/Fever or Pain Acetaminophen (Tylenol) 650 mg [place] Q4H PRN PRN Reason: Headache/Fever or Pain Aspirin (Ecotrin) 81 mg PO DAILY [facility] Last Admin: 05/21/17 08:30 Dose: 81 mg Atenolol (Tenormin) 50 mg PO BID [facility] Last Admin: 05/21/17 08:29 Dose: 50 mg Bisacodyl (Dulcolax) 10 mg PO DAILYPRN PRN PRN Reason: Constipation Chlordiazepoxide HCl (Librium) 25 mg PO TID [facility] Last Admin: 05/21/17 16:30 Dose: 25 mg Clonidine (Catapres) 0.1 mg PO Q4H PRN PRN Reason: SBP>160 Diazepam (Valium) 5 mg PO Q4H PRN PRN Reason: FOR ASE 10 OR GREATER Last Admin: 05/20/17 20:07 Dose: 5 mg Docusate Sodium (Colace) 100 mg PO BID [facility] Last Admin: 05/21/17 08:29 Dose: 100 mg Enoxaparin Sodium (Lovenox) 40 mg SC 0900 [facility] Last Admin: 05/21/17 08:29 Dose: 40 mg Ferrous Sulfate (Feosol) 325 mg PO DAILY [facility] Last Admin: 05/21/17 08:30 Dose: 325 mg Folic Acid (Folvite) 1 mg PO DAILY [facility] Last Admin: 05/21/17 08:30 Dose: 1 mg Gabapentin (Neurontin) 300 mg PO TID [facility] Last Admin: 05/21/17 16:30 Dose: 300 mg Haloperidol Lactate (Haldol) 5 mg SLOW IVP Q4H PRN PRN Reason: Agitation Hydralazine HCl (Apresoline) 10 mg SLOW IVP Q4H PRN PRN Reason: SBP>170 Potassium Chloride/Dextrose/Sod Cl (D5 1/2 Ns W/20 Meq Kcl) 1,000 mls @ 75 mls/ hr IV .[id number] [facility] Last Admin: 05/21/17 08:29 Dose: 1,000 mls Iron/Minerals/Multivitamins (Theragran M) 1 tab PO DAILY [facility] Last Admin: 05/21/17 08:29 Dose: 1 tab Miscellaneous Medication (Pharmacy To Dose) 1 each IVPB ONE [facility] Stop: 06/16/17 16:46 Ondansetron HCl (Zofran Odt) 4 mg PO Q6H PRN PRN Reason: Nausea/Vomiting Ondansetron HCl (Zofran) 4 mg IVP Q6H PRN PRN Reason: Nausea/Vomiting Pantoprazole Sodium (Protonix) 40 mg PO 2100 [facility] Last Admin: 05/20/17 20:06 Dose: 40 mg Thiamine HCl (Thiamine) 100 mg PO DAILY [facility] Last Admin: 05/21/17 08:29 Dose: 100 mg Trazodone HCl (Desyrel) 50 mg PO HS [facility] Last Admin: 05/20/17 20:06 Dose: 50 mg
[2017-05-21] MEDS: traZODone HCl 50 MG TAB PO SCH (20:46)
[2017-05-22] MEDS: D5 1/2 NS w/20 mEq KCL 1,000 ML IV SCH ×2 (02:44→21:12)
[2017-05-22 06:03] LABS: Anion Gap 13 mmol/L (10-20); BUN (Urea Nitrogen) 9 mg/dL (8.4-25.7); CK (CPK) 185 U/L (30-200); Calc. Creatinine Clearance 97 mL/min (70-130); Calcium 8.6 mg/dL (7.8-10.44); Carbon Dioxide 19 mmol/L (23-31); Chloride 111 mmol/L (98-107); Estimated GFR-MDRD 87; Glucose 163 mg/dL (80-115); Potassium 3.7 mmol/L (3.5-5.1); Sodium 139 mmol/L (136-145)
[2017-05-22] MEDS: Ferrous Sulfate 325 MG TAB PO SCH (08:25)
[2017-05-22] MEDS: Folic Acid 1 MG TAB PO SCH (08:25)
[2017-05-22] MEDS: Aspirin 81 mg Enteric Coated Tablet PO SCH (08:25)
[2017-05-22] MEDS: Docusate 100 MG CAP PO SCH ×3 (08:25→20:49)
[2017-05-22] MEDS: chlordiazePOXIDE HCl 25 MG CAP PO SCH ×3 (08:25→20:49)
[2017-05-22] MEDS: Atenolol 50 MG TAB PO SCH ×2 (08:25→20:48)
[2017-05-22] MEDS: Gabapentin 300 MG CAP PO SCH ×3 (08:25→20:49)
[2017-05-22] MEDS: Multivitamin W/ Minerals 1 TAB PO SCH (08:25)
[2017-05-22] MEDS: Enoxaparin Sodium 40 MG/0.4 ML SYRINGE SC SCH (08:28)
[2017-05-22] MEDS ORDERED: Amlodipine 10 MG TAB PO SCH (09:30)
--- NOTE | 2017-05-22 12:53 | PDOC.PN ---
- Subjective Encounter Start Date: 05/22/17 Encounter Start Time: 12:52 Subjective: feels better. still very weak .not able to get OOB -: no nausea/vomiting/fever/chills.no seizures - Objective Resuscitation Status: Resuscitation Status FULL:Full Resuscitation MAR Reviewed: Yes Vital Signs & Weight: Vital Signs (12 hours) Temp Pulse Resp BP BP Pulse Ox 05/22/17 11:53 97.8 F 52 L 16 164/79 H 98 05/22/17 08:00 98.1 F 62 18 151/80 H 151/80 H 98 05/22/17 05:50 97.9 F 65 18 155/75 H 99 05/22/17 01:17 98.0 F 65 18 154/87 H 98 Weight Admit Weight 179 lb 9.6 oz Weight 176 lb 9.6 oz I&O: 05/21/17 05/22/17 05/23/17 06:59 06:59 06:59 Intake Total 1900 1500 Output Total 1 1300 Balance 1899 200 Result Diagrams: 05/19/17 04:34 05/22/17 04:19 Additional Labs: Accuchecks 05/22/17 05/21/17 05/21/17 11:55 18:31 13:23 POC Glucose 116 H 139 H 117 H Phys Exam - Physical Examination Constitutional: NAD HEENT: PERRLA, moist MMs, sclera anicteric, oral pharynx no lesions Neck: no nodes, no JVD, supple, full ROM Respiratory: no wheezing, no rales, no rhonchi, clear to auscultation bilateral Cardiovascular: RRR, no significant murmur, no rub, gallop Gastrointestinal: soft, non-tender, no distention, positive bowel sounds Musculoskeletal: no edema, pulses present Neurological: non-focal, normal sensation, moves all 4 limbs Psychiatric: normal affect, A&O x 3 Skin: no rash Dx/Plan (1) Alcohol withdrawal syndrome Code(s): F10.239 - ALCOHOL DEPENDENCE WITH WITHDRAWAL, UNSPECIFIED Status: Resolved Qualifiers: (2) DM type 2 (diabetes mellitus, type 2) Status: Chronic Qualifiers: Diabetes mellitus complication status: without complication Diabetes mellitus senior living insulin use: without senior living use Qualified Code(s): E11.9 - Type 2 diabetes mellitus without complications (3) History of prostate cancer Code(s): Z85.46 - PERSONAL HISTORY OF MALIGNANT NEOPLASM OF PROSTATE Status: Chronic Comment: Encouraged to continue with urology outpatient (4) Hypertension Code(s): I10 - ESSENTIAL (PRIMARY) HYPERTENSION Status: Chronic Qualifiers: Hypertension type: essential hypertension Qualified Code(s): I10 - Essential (primary) hypertension (5) Paroxysmal atrial fibrillation Code(s): I48.0 - PAROXYSMAL ATRIAL FIBRILLATION Status: Chronic Comment: not an anticoagulation candidate due to alcoholism (6) Type 2 diabetes mellitus with peripheral neuropathy Code(s): E11.42 - TYPE 2 DIABETES MELLITUS WITH DIABETIC POLYNEUROPATHY Status : Chronic (7) Hypokalemia Code(s): E87.6 - HYPOKALEMIA Status: Acute Comment: will replace orally (8) Metabolic acidosis Code(s): E87.2 - ACIDOSIS Status: Acute - Plan DVT proph w/SCDs Add Norvasc for persistantly high BP. -: encourage OOB.OT,PT. may need rehab. -: DC IVF. -: cont librium TID.Taper on DC. -: am labs. replace and recheck Poatssium prn * . Review of Systems - Review of Systems Constitutional: weakness, malaise. negative: fever, chills, sweats, other Respiratory: negative: Cough, Dry, Shortness of Breath, Hemoptysis, SOB with Excertion, Pleuritic Pain, Sputum, Wheezing Cardiovascular: negative: chest pain, palpitations, orthopnea, paroxysmal nocturnal dyspnea, edema, light headedness, other Gastrointestinal: negative: Nausea, Vomiting, Abdominal Pain, Diarrhea, Constipation, Melena, Hematochezia, Other Genitourinary: negative: Dysuria, Frequency, Incontinence, Hematuria, Retention , Other Musculoskeletal: negative: Neck Pain, Shoulder Pain, Arm Pain, Back Pain, Hand Pain, Leg Pain, Foot Pain, Other - Medications/Allergies Allergies/Adverse Reactions: Allergies Allergy/AdvReac Type Severity Reaction Status Date / Time No Known Drug Allergies Allergy Verified 03/13/17 17:22 Medications: Current Medications Acetaminophen (Tylenol) 650 mg PO Q4H PRN PRN Reason: Headache/Fever or Pain Acetaminophen (Tylenol) 650 mg [place] Q4H PRN PRN Reason: Headache/Fever or Pain Amlodipine Besylate (Norvasc) 10 mg PO DAILY [facility] Aspirin (Ecotrin) 81 mg PO DAILY [facility] Last Admin: 05/22/17 08:25 Dose: 81 mg Atenolol (Tenormin) 50 mg PO BID [facility] Last Admin: 05/22/17 08:25 Dose: 50 mg Bisacodyl (Dulcolax) 10 mg PO DAILYPRN PRN PRN Reason: Constipation Chlordiazepoxide HCl (Librium) 25 mg PO TID [facility] Last Admin: 05/22/17 08:25 Dose: 25 mg Clonidine (Catapres) 0.1 mg PO Q4H PRN PRN Reason: SBP>160 Diazepam (Valium) 5 mg PO Q4H PRN PRN Reason: FOR ASE 10 OR GREATER Last Admin: 05/20/17 20:07 Dose: 5 mg Docusate Sodium (Colace) 100 mg PO BID [facility] Last Admin: 05/22/17 08:25 Dose: Not Given Enoxaparin Sodium (Lovenox) 40 mg SC 0900 [facility] Last Admin: 05/22/17 08:28 Dose: 40 mg Ferrous Sulfate (Feosol) 325 mg PO DAILY [facility] Last Admin: 05/22/17 08:25 Dose: 325 mg Folic Acid (Folvite) 1 mg PO DAILY [facility] Last Admin: 05/22/17 08:25 Dose: 1 mg Gabapentin (Neurontin) 300 mg PO TID [facility] Last Admin: 05/22/17 08:25 Dose: 300 mg Haloperidol Lactate (Haldol) 5 mg SLOW IVP Q4H PRN PRN Reason: Agitation Hydralazine HCl (Apresoline) 10 mg SLOW IVP Q4H PRN PRN Reason: SBP>170 Potassium Chloride/Dextrose/Sod Cl (D5 1/2 Ns W/20 Meq Kcl) 1,000 mls @ 75 mls/ hr IV .[id number] [facility] Last Admin: 05/22/17 02:44 Dose: 1,000 mls Iron/Minerals/Multivitamins (Theragran M) 1 tab PO DAILY [facility] Last Admin: 05/22/17 08:25 Dose: 1 tab Miscellaneous Medication (Pharmacy To Dose) 1 each IVPB ONE [facility] Stop: 06/16/17 16:46 Ondansetron HCl (Zofran Odt) 4 mg PO Q6H PRN PRN Reason: Nausea/Vomiting Ondansetron HCl (Zofran) 4 mg IVP Q6H PRN PRN Reason: Nausea/Vomiting Pantoprazole Sodium (Protonix) 40 mg PO 2100 [facility] Last Admin: 05/21/17 20:46 Dose: 40 mg Thiamine HCl (Thiamine) 100 mg PO DAILY [facility] Last Admin: 05/22/17 08:25 Dose: 100 mg Trazodone HCl (Desyrel) 50 mg PO HS [facility] Last Admin: 05/21/17 20:46 Dose: 50 mg
[2017-05-22] MEDS: traZODone HCl 50 MG TAB PO SCH (20:49)
[2017-05-23 06:45] LABS: Anion Gap 12 mmol/L (10-20); BUN (Urea Nitrogen) 9 mg/dL (8.4-25.7); Calc. Creatinine Clearance 98 mL/min (70-130); Calcium 8.9 mg/dL (7.8-10.44); Carbon Dioxide 22 mmol/L (23-31); Chloride 109 mmol/L (98-107); Estimated GFR-MDRD 89; Glucose 138 mg/dL (80-115); Potassium 3.6 mmol/L (3.5-5.1); Sodium 139 mmol/L (136-145)
[2017-05-23] MEDS: Aspirin 81 mg Enteric Coated Tablet PO SCH (07:44)
[2017-05-23] MEDS: chlordiazePOXIDE HCl 25 MG CAP PO SCH ×3 (07:44→20:46)
[2017-05-23] MEDS: Gabapentin 300 MG CAP PO SCH ×3 (07:45→20:47)
[2017-05-23] MEDS: Multivitamin W/ Minerals 1 TAB PO SCH (07:45)
[2017-05-23] MEDS: Ferrous Sulfate 325 MG TAB PO SCH (07:45)
[2017-05-23] MEDS: Folic Acid 1 MG TAB PO SCH (07:45)
[2017-05-23] MEDS: Enoxaparin Sodium 40 MG/0.4 ML SYRINGE SC SCH (07:45)
[2017-05-23] MEDS: Docusate 100 MG CAP PO SCH ×2 (07:45→20:47)
[2017-05-23] MEDS: Amlodipine 10 MG TAB PO SCH (07:47)
[2017-05-23] MEDS: Atenolol 50 MG TAB PO SCH ×2 (07:47→20:47)
--- NOTE | 2017-05-23 13:45 | PDOC.PN ---
- Subjective Encounter Start Date: 05/23/17 Encounter Start Time: 13:51 -: non-verbal, old records requested/rev Subjective: Pt seen and examined for Alcohol Withdrwl syndome -: Pt denies any N/V/D, still shaky - Objective Resuscitation Status: Resuscitation Status FULL:Full Resuscitation Vital Signs & Weight: Vital Signs (12 hours) Temp Pulse Resp BP BP Pulse Ox 05/23/17 11:09 97.6 F 78 14 148/80 H 100 05/23/17 08:00 97.6 F 64 14 112/56 L 05/23/17 07:59 97.6 F 64 14 112/56 L 98 05/23/17 07:47 65 112/56 L Weight Admit Weight 179 lb 9.6 oz Weight 176 lb 12.8 oz I&O: 05/22/17 05/23/17 05/24/17 06:59 06:59 06:59 Intake Total 1500 500 Output Total 1300 1850 450 Balance 200 -1350 -450 Result Diagrams: 05/19/17 04:34 05/23/17 04:48 Additional Labs: Accuchecks 05/23/17 05/23/17 05/22/17 10:48 07:03 20:26 POC Glucose 184 H 202 H 120 H 05/22/17 16:28 POC Glucose 190 H Phys Exam - Physical Examination HEENT: PERRLA, moist MMs, sclera anicteric, TM's clear, oral pharynx no lesions , 2+ tonsils Neck: no nodes, no JVD, supple, full ROM Cardiovascular: RRR, no significant murmur, no rub, gallop, irregular Gastrointestinal: soft, non-tender, no distention, positive bowel sounds Musculoskeletal: no edema, pulses present, edema present Skin: no rash, normal turgor, cap refill <2 seconds Dx/Plan (1) Hypokalemia Code(s): E87.6 - HYPOKALEMIA Status: Acute Comment: will replace orally (2) Metabolic acidosis Code(s): E87.2 - ACIDOSIS Status: Acute (3) Paroxysmal atrial fibrillation Code(s): I48.0 - PAROXYSMAL ATRIAL FIBRILLATION Status: Chronic Comment: not an anticoagulation candidate due to alcoholism (4) Type 2 diabetes mellitus with peripheral neuropathy Code(s): E11.42 - TYPE 2 DIABETES MELLITUS WITH DIABETIC POLYNEUROPATHY Status : Chronic - Plan Plan 1) eid catheter, PT/OT, social worker school, incentive spirometry, out of bed/ ambulate Chest tube in place.CTVS following.cont ASA,BB. 2) Decreased Urine Output.was on Dopamine but switched off d/t High BP. 3)will try 1 dose lasix as crackles on exam as well. 4)hemodynmically stable .cardiology following 5)am labs.monitor lytes,H/H etc * . Review of Systems - Medications/Allergies Allergies/Adverse Reactions: Allergies Allergy/AdvReac Type Severity Reaction Status Date / Time No Known Drug Allergies Allergy Verified 03/13/17 17:22 Medications: Current Medications Acetaminophen (Tylenol) 650 mg PO Q4H PRN PRN Reason: Headache/Fever or Pain Acetaminophen (Tylenol) 650 mg [place] Q4H PRN PRN Reason: Headache/Fever or Pain Amlodipine Besylate (Norvasc) 10 mg PO DAILY [facility] Last Admin: 05/23/17 07:47 Dose: Not Given Aspirin (Ecotrin) 81 mg PO DAILY [facility] Last Admin: 05/23/17 07:44 Dose: 81 mg Atenolol (Tenormin) 50 mg PO BID [facility] Last Admin: 05/23/17 07:47 Dose: Not Given Bisacodyl (Dulcolax) 10 mg PO DAILYPRN PRN PRN Reason: Constipation Chlordiazepoxide HCl (Librium) 25 mg PO TID [facility] Last Admin: 05/23/17 07:44 Dose: 25 mg Clonidine (Catapres) 0.1 mg PO Q4H PRN PRN Reason: SBP>160 Diazepam (Valium) 5 mg PO Q4H PRN PRN Reason: FOR ASE 10 OR GREATER Last Admin: 05/20/17 20:07 Dose: 5 mg Docusate Sodium (Colace) 100 mg PO BID [facility] Last Admin: 05/23/17 07:45 Dose: 100 mg Enoxaparin Sodium (Lovenox) 40 mg SC 0900 [facility] Last Admin: 05/23/17 07:45 Dose: 40 mg Ferrous Sulfate (Feosol) 325 mg PO DAILY [facility] Last Admin: 05/23/17 07:45 Dose: 325 mg Folic Acid (Folvite) 1 mg PO DAILY [facility] Last Admin: 05/23/17 07:45 Dose: 1 mg Gabapentin (Neurontin) 300 mg PO TID [facility] Last Admin: 05/23/17 07:45 Dose: 300 mg Haloperidol Lactate (Haldol) 5 mg SLOW IVP Q4H PRN PRN Reason: Agitation Hydralazine HCl (Apresoline) 10 mg SLOW IVP Q4H PRN PRN Reason: SBP>170 Iron/Minerals/Multivitamins (Theragran M) 1 tab PO DAILY [facility] Last Admin: 05/23/17 07:45 Dose: 1 tab Miscellaneous Medication (Pharmacy To Dose) 1 each IVPB ONE [facility] Stop: 06/16/17 16:46 Ondansetron HCl (Zofran Odt) 4 mg PO Q6H PRN PRN Reason: Nausea/Vomiting Ondansetron HCl (Zofran) 4 mg IVP Q6H PRN PRN Reason: Nausea/Vomiting Pantoprazole Sodium (Protonix) 40 mg PO 2100 [facility] Last Admin: 05/22/17 20:49 Dose: 40 mg Thiamine HCl (Thiamine) 100 mg PO DAILY [facility] Last Admin: 05/23/17 07:45 Dose: 100 mg Trazodone HCl (Desyrel) 50 mg PO HS [facility] Last Admin: 05/22/17 20:49 Dose: 50 mg
[2017-05-23] MEDS: traZODone HCl 50 MG TAB PO SCH (20:47)
[2017-05-24] MEDS: Atenolol 50 MG TAB PO SCH ×2 (08:53→21:15)
[2017-05-24] MEDS: Docusate 100 MG CAP PO SCH ×2 (08:54→21:16)
[2017-05-24] MEDS: Aspirin 81 mg Enteric Coated Tablet PO SCH (08:54)
[2017-05-24] MEDS: chlordiazePOXIDE HCl 25 MG CAP PO SCH ×3 (08:54→21:15)
[2017-05-24] MEDS: Ferrous Sulfate 325 MG TAB PO SCH (08:55)
[2017-05-24] MEDS: Amlodipine 10 MG TAB PO SCH (08:55)
[2017-05-24] MEDS: Enoxaparin Sodium 40 MG/0.4 ML SYRINGE SC SCH (08:55)
[2017-05-24] MEDS: Folic Acid 1 MG TAB PO SCH (08:55)
[2017-05-24] MEDS: Gabapentin 300 MG CAP PO SCH ×3 (08:55→21:16)
[2017-05-24] MEDS: Multivitamin W/ Minerals 1 TAB PO SCH (08:55)
[2017-05-24] MEDS: traZODone HCl 50 MG TAB PO SCH (21:15)
[2017-05-25] MEDS: Atenolol 50 MG TAB PO SCH ×2 (08:03→22:07)
[2017-05-25] MEDS: Amlodipine 10 MG TAB PO SCH (08:04)
[2017-05-25] MEDS: chlordiazePOXIDE HCl 25 MG CAP PO SCH ×3 (08:04→22:09)
[2017-05-25] MEDS: Folic Acid 1 MG TAB PO SCH (08:04)
[2017-05-25] MEDS: Gabapentin 300 MG CAP PO SCH ×3 (08:04→22:09)
[2017-05-25] MEDS: Ferrous Sulfate 325 MG TAB PO SCH (08:04)
[2017-05-25] MEDS: Aspirin 81 mg Enteric Coated Tablet PO SCH (08:04)
[2017-05-25] MEDS: Multivitamin W/ Minerals 1 TAB PO SCH (08:04)
[2017-05-25] MEDS: Docusate 100 MG CAP PO SCH ×2 (08:04→22:08)
[2017-05-25] MEDS: Enoxaparin Sodium 40 MG/0.4 ML SYRINGE SC SCH (08:05)
--- NOTE | 2017-05-25 18:32 | PDOC.PN ---
- Subjective Encounter Start Date: 05/25/17 Encounter Start Time: 18:31 Subjective: Seen and examined with no new complaint - Objective Resuscitation Status: Resuscitation Status FULL:Full Resuscitation Vital Signs & Weight: Vital Signs (12 hours) Temp Pulse Resp BP BP Pulse Ox 05/25/17 16:11 98.2 F 61 20 120/77 98 05/25/17 16:00 120/77 05/25/17 12:00 137/75 05/25/17 11:37 97.9 F 61 20 137/75 98 05/25/17 08:04 61 144/82 H 05/25/17 08:03 61 144/82 H 05/25/17 08:02 97.5 F L 61 20 144/82 H 98 05/25/17 08:00 97.5 F L 61 20 144/82 H 98 Weight Admit Weight 179 lb 9.6 oz Weight 173 lb 4.8 oz I&O: 05/24/17 05/25/17 05/26/17 06:59 06:59 06:59 Intake Total 450 1760 1150 Output Total 8471 471 6854 Balance -1000 1060 50 Result Diagrams: 05/19/17 04:34 05/23/17 04:48 Additional Labs: Accuchecks 05/25/17 05/25/17 16:44 10:56 POC Glucose 175 H 199 H Phys Exam - Physical Examination Constitutional: NAD HEENT: PERRLA, moist MMs, sclera anicteric, TM's clear Neck: no nodes, no JVD, supple, full ROM Respiratory: no wheezing, no rales, no rhonchi, clear to auscultation bilateral Cardiovascular: RRR, no significant murmur, no rub Gastrointestinal: soft, non-tender, no distention, positive bowel sounds Dx/Plan (1) Metabolic acidosis Code(s): E87.2 - ACIDOSIS Status: Acute (2) Paroxysmal atrial fibrillation Code(s): I48.0 - PAROXYSMAL ATRIAL FIBRILLATION Status: Chronic Comment: not an anticoagulation candidate due to alcoholism (3) Type 2 diabetes mellitus with peripheral neuropathy Code(s): E11.42 - TYPE 2 DIABETES MELLITUS WITH DIABETIC POLYNEUROPATHY Status : Chronic (4) Prepatellar bursitis of left knee Code(s): M70.42 - PREPATELLAR BURSITIS, LEFT KNEE Status: Acute (5) Rapid atrial fibrillation Code(s): I48.91 - UNSPECIFIED ATRIAL FIBRILLATION Status: Acute Comment: rate controlled, Dr Jo following (6) Abnormal LFTs Code(s): R79.89 - OTHER SPECIFIED ABNORMAL FINDINGS OF BLOOD CHEMISTRY Status : Chronic (7) Chronic alcohol use Code(s): F10.10 - ALCOHOL ABUSE, UNCOMPLICATED Status: Chronic (8) DM type 2 (diabetes mellitus, type 2) Status: Chronic Qualifiers: Diabetes mellitus complication status: without complication Diabetes mellitus termite renewal inspector insulin use: without penitentiary use Qualified Code(s): E11.9 - Type 2 diabetes mellitus without complications (9) History of MRSA infection Code(s): Z86.14 - PERSONAL HISTORY OF METHICILLIN RESIS STAPH INFECTION Status : Chronic Comment: left CARLY infection, s/p 2 stage and penitentiary IV antbiotics 3-4 years ago (10) Hypertension Code(s): I10 - ESSENTIAL (PRIMARY) HYPERTENSION Status: Chronic Qualifiers: Hypertension type: essential hypertension Qualified Code(s): I10 - Essential (primary) hypertension (11) Alcohol withdrawal syndrome Code(s): F10.239 - ALCOHOL DEPENDENCE WITH WITHDRAWAL, UNSPECIFIED Status: Resolved Qualifiers: - Plan plan discussed w/ family, PT/OT, licensed master social worker Awaiting Rehab placement -: Continue to monitor vitals -: prn diuresis * .
[2017-05-25] MEDS: traZODone HCl 50 MG TAB PO SCH (22:09)
[2017-05-26] MEDS: Gabapentin 300 MG CAP PO SCH ×3 (08:14→21:18)
[2017-05-26] MEDS: Amlodipine 10 MG TAB PO SCH (08:14)
[2017-05-26] MEDS: Atenolol 50 MG TAB PO SCH ×2 (08:14→21:17)
[2017-05-26] MEDS: chlordiazePOXIDE HCl 25 MG CAP PO SCH ×3 (08:14→21:18)
[2017-05-26] MEDS: Ferrous Sulfate 325 MG TAB PO SCH (08:15)
[2017-05-26] MEDS: Multivitamin W/ Minerals 1 TAB PO SCH (08:15)
[2017-05-26] MEDS: Aspirin 81 mg Enteric Coated Tablet PO SCH (08:15)
[2017-05-26] MEDS: Enoxaparin Sodium 40 MG/0.4 ML SYRINGE SC SCH (08:15)
[2017-05-26] MEDS: Folic Acid 1 MG TAB PO SCH (08:15)
[2017-05-26] MEDS: Docusate 100 MG CAP PO SCH ×2 (08:15→21:18)
--- NOTE | 2017-05-26 18:30 | PDOC.PN ---
- Subjective Encounter Start Date: 05/26/17 Encounter Start Time: 18:28 Subjective: Seen and examined no new complaint - Objective Resuscitation Status: Resuscitation Status FULL:Full Resuscitation Vital Signs & Weight: Vital Signs (12 hours) Temp Pulse Resp BP BP Pulse Ox 05/26/17 16:00 98.2 F 83 14 143/79 H 143/79 H 96 05/26/17 12:00 115/70 05/26/17 11:40 97.7 F 72 14 115/70 99 05/26/17 08:14 69 118/67 05/26/17 08:00 97.8 F 69 14 118/67 118/67 96 05/26/17 07:28 98.0 F 68 20 96 Weight Admit Weight 179 lb 9.6 oz Weight 6.258 oz I&O: 05/25/17 05/26/17 05/27/17 06:59 06:59 06:59 Intake Total 1760 1550 1680 Output Total 700 1100 Balance 5992 521 7635 Result Diagrams: 05/19/17 04:34 05/23/17 04:48 Additional Labs: Accuchecks 05/26/17 05/26/17 05/26/17 15:49 10:45 04:04 POC Glucose 204 H 202 H 143 H 05/25/17 05/25/17 05/24/17 20:58 05:36 19:34 POC Glucose 217 H 132 H 265 H Phys Exam - Physical Examination Constitutional: NAD HEENT: PERRLA, moist MMs, sclera anicteric, oral pharynx no lesions Neck: no nodes, no JVD, supple, full ROM Respiratory: no wheezing, no rales, no rhonchi, clear to auscultation bilateral Cardiovascular: RRR, no significant murmur, no rub Gastrointestinal: soft, non-tender, no distention, positive bowel sounds Dx/Plan (1) Metabolic acidosis Code(s): E87.2 - ACIDOSIS Status: Acute (2) Paroxysmal atrial fibrillation Code(s): I48.0 - PAROXYSMAL ATRIAL FIBRILLATION Status: Chronic Comment: not an anticoagulation candidate due to alcoholism (3) Type 2 diabetes mellitus with peripheral neuropathy Code(s): E11.42 - TYPE 2 DIABETES MELLITUS WITH DIABETIC POLYNEUROPATHY Status : Chronic (4) Prepatellar bursitis of left knee Code(s): M70.42 - PREPATELLAR BURSITIS, LEFT KNEE Status: Acute (5) Rapid atrial fibrillation Code(s): I48.91 - UNSPECIFIED ATRIAL FIBRILLATION Status: Acute Comment: rate controlled, Dr Jo following (6) Abnormal LFTs Code(s): R79.89 - OTHER SPECIFIED ABNORMAL FINDINGS OF BLOOD CHEMISTRY Status : Chronic (7) Chronic alcohol use Code(s): F10.10 - ALCOHOL ABUSE, UNCOMPLICATED Status: Chronic (8) DM type 2 (diabetes mellitus, type 2) Status: Chronic Qualifiers: Diabetes mellitus complication status: without complication Diabetes mellitus terminal gauger insulin use: without terminal gauger use Qualified Code(s): E11.9 - Type 2 diabetes mellitus without complications (9) History of MRSA infection Code(s): Z86.14 - PERSONAL HISTORY OF METHICILLIN RESIS STAPH INFECTION Status : Chronic Comment: left CARLY infection, s/p 2 stage and assisted IV antbiotics 3-4 years ago (10) Hypertension Code(s): I10 - ESSENTIAL (PRIMARY) HYPERTENSION Status: Chronic Qualifiers: Hypertension type: essential hypertension Qualified Code(s): I10 - Essential (primary) hypertension - Plan PT/OT, health care social worker Awaiting SNF placement -: Casemanager working closely with patient .Re-placement * .
[2017-05-26] MEDS: traZODone HCl 50 MG TAB PO SCH (21:17)
[2017-05-27] MEDS: Atenolol 50 MG TAB PO SCH ×2 (08:19→19:51)
[2017-05-27] MEDS: Aspirin 81 mg Enteric Coated Tablet PO SCH (08:19)
[2017-05-27] MEDS: Amlodipine 10 MG TAB PO SCH (08:19)
[2017-05-27] MEDS: Multivitamin W/ Minerals 1 TAB PO SCH (08:20)
[2017-05-27] MEDS: Gabapentin 300 MG CAP PO SCH ×3 (08:20→19:52)
[2017-05-27] MEDS: Docusate 100 MG CAP PO SCH ×3 (08:20→19:52)
[2017-05-27] MEDS: Enoxaparin Sodium 40 MG/0.4 ML SYRINGE SC SCH (08:20)
[2017-05-27] MEDS: Folic Acid 1 MG TAB PO SCH (08:20)
[2017-05-27] MEDS: Ferrous Sulfate 325 MG TAB PO SCH (08:20)
[2017-05-27] MEDS: chlordiazePOXIDE HCl 25 MG CAP PO SCH ×3 (08:20→19:52)
--- NOTE | 2017-05-27 14:22 | PDOC.PN ---
- Subjective Encounter Start Date: 05/27/17 Encounter Start Time: 14:20 Patient seen and examined. No new complaints. No overnight events. doing well. - Objective Resuscitation Status: Resuscitation Status FULL:Full Resuscitation Vital Signs & Weight: Vital Signs (12 hours) Temp Pulse Resp BP BP Pulse Ox 05/27/17 10:36 97.7 F 68 16 137/73 99 05/27/17 08:19 66 136/78 05/27/17 08:00 97.7 F 68 16 136/78 05/27/17 07:08 98.0 F 66 16 136/78 99 05/27/17 04:00 98.0 F 72 18 118/74 99 Weight Admit Weight 179 lb 9.6 oz Weight 176 lb 9.973 oz I&O: 05/26/17 05/27/17 05/28/17 06:59 06:59 06:59 Intake Total 1550 2130 480 Output Total 1100 Balance 450 2130 480 Result Diagrams: 05/19/17 04:34 05/23/17 04:48 Additional Labs: Accuchecks 05/27/17 05/27/17 05/26/17 10:41 05:22 19:17 POC Glucose 158 H 224 H 300 H 05/26/17 05/25/17 05/24/17 15:49 05:36 19:34 POC Glucose 204 H 132 H 265 H Phys Exam - Physical Examination Constitutional: NAD HEENT: sclera anicteric Neck: supple Respiratory: no wheezing, no rales Cardiovascular: RRR Gastrointestinal: soft Musculoskeletal: no edema Neurological: non-focal, moves all 4 limbs Psychiatric: normal affect, A&O x 3 Skin: no rash Dx/Plan (1) Hypokalemia Code(s): E87.6 - HYPOKALEMIA Status: Acute Comment: will replace orally (2) Metabolic acidosis Code(s): E87.2 - ACIDOSIS Status: Acute (3) Type 2 diabetes mellitus with peripheral neuropathy Code(s): E11.42 - TYPE 2 DIABETES MELLITUS WITH DIABETIC POLYNEUROPATHY Status : Chronic (4) Rapid atrial fibrillation Code(s): I48.91 - UNSPECIFIED ATRIAL FIBRILLATION Status: Chronic Comment: rate controlled, Dr Jo following (5) Chronic alcohol use Code(s): F10.10 - ALCOHOL ABUSE, UNCOMPLICATED Status: Chronic (6) Chronic anemia Code(s): D64.9 - ANEMIA, UNSPECIFIED Status: Chronic - Plan cont current plan of care * . awaiting placement continue vitamins and librium. counseled on alcohol use. AM labs.
[2017-05-27] MEDS: traZODone HCl 50 MG TAB PO SCH (19:51)
[2017-05-28 05:20] LABS: #Eosinphils 0.1 thou/uL (0.0-0.7); #Lymphocytes 1.4 thou/uL (1.20-3.40); #Monocytes 0.6 thou/uL (0.11-0.59); #Neutrophils 2.7 thou/uL (1.40-6.50); %Basophils 0.5 % (0.0-1.0); %Eosinophils 2.9 % (0.0-10.0); %Lymphocytes 29.3 % (21.0-51.0); %Monocytes 11.9 % (0.0-10.0); %Neutrophils 55.4 % (42.0-75.0); Hemoglobin 10.4 g/dL (14.0-18.0); Mean Corpuscular HGB CONC 32.3 g/dL (32.0-36.0); Mean Corpuscular Hemoglobin 31.4 pg (27.0-31.0); Mean Corpuscular Volume 97.3 fl (80.0-94.0); Mean Platelet Volume 7.3 fL (7.4-10.4); Platelet Count 316 thou/uL (130-400); RBC Distribution Width 15.2 % (11.5-14.5); Red Blood Cell (RBC) Count 3.31 mill/uL (4.70-6.10); White Blood Cell (WBC) Count 4.8 thou/uL (4.8-10.8)
[2017-05-28 05:29] LABS: ALT (SGPT) 14 U/L (8-55); AST (SGOT) 17 U/L (5-34); Albumin 3.6 g/dL (3.4-4.8); Alkaline Phosphatase 58 U/L (40-150); Anion Gap 13 mmol/L (10-20); BUN (Urea Nitrogen) 12 mg/dL (8.4-25.7); Bilirubin, Total 0.2 mg/dL (0.2-1.2); Calc. Creatinine Clearance 87 mL/min (70-130); Calcium 9.9 mg/dL (7.8-10.44); Carbon Dioxide 24 mmol/L (23-31); Chloride 104 mmol/L (98-107); Estimated GFR-MDRD 77; Globulin 3.1 g/dL (2.4-3.5); Glucose 179 mg/dL (80-115); Magnesium 1.5 mg/dL (1.6-2.6); Potassium 4.1 mmol/L (3.5-5.1); Protein, Total 6.7 g/dL (5.8-8.1); Sodium 137 mmol/L (136-145)
[2017-05-28] MEDS: Aspirin 81 mg Enteric Coated Tablet PO SCH (08:48)
[2017-05-28] MEDS: Multivitamin W/ Minerals 1 TAB PO SCH (08:48)
[2017-05-28] MEDS: Gabapentin 300 MG CAP PO SCH ×3 (08:48→20:38)
[2017-05-28] MEDS: Ferrous Sulfate 325 MG TAB PO SCH (08:48)
[2017-05-28] MEDS: Folic Acid 1 MG TAB PO SCH (08:49)
[2017-05-28] MEDS: chlordiazePOXIDE HCl 25 MG CAP PO SCH ×3 (08:49→20:38)
[2017-05-28] MEDS: Atenolol 50 MG TAB PO SCH ×2 (08:49→20:38)
[2017-05-28] MEDS: Amlodipine 10 MG TAB PO SCH (08:49)
[2017-05-28] MEDS: Enoxaparin Sodium 40 MG/0.4 ML SYRINGE SC SCH (08:49)
[2017-05-28] MEDS: Docusate 100 MG CAP PO SCH ×2 (08:49→20:39)
--- NOTE | 2017-05-28 14:35 | PDOC.PN ---
- Subjective Encounter Start Date: 05/28/17 Encounter Start Time: 14:33 Patient seen and examined. No new complaints. No overnight events. doing well. - Objective Resuscitation Status: Resuscitation Status FULL:Full Resuscitation MAR Reviewed: Yes Vital Signs & Weight: Vital Signs (12 hours) Temp Pulse Resp BP BP BP Pulse Ox 05/28/17 12:00 97.4 F L 108 H 18 149/80 H 100 05/28/17 08:49 108 H 156/92 H 05/28/17 08:00 97.9 F 108 H 18 156/92 H 156/92 H 100 Weight Admit Weight 179 lb 9.6 oz Weight 174 lb 1 oz I&O: 05/27/17 05/28/17 05/29/17 06:59 06:59 06:59 Intake Total 2130 2300 480 Balance 2130 2300 480 Result Diagrams: 05/28/17 04:09 05/28/17 04:09 Additional Labs: Accuchecks 05/28/17 05/28/17 05/27/17 10:52 04:21 19:50 POC Glucose 236 H 184 H 266 H 05/27/17 15:47 POC Glucose 274 H Phys Exam - Physical Examination Constitutional: NAD HEENT: sclera anicteric Neck: supple Respiratory: no wheezing, no rales Cardiovascular: RRR Gastrointestinal: soft Musculoskeletal: no edema Neurological: non-focal Psychiatric: normal affect, A&O x 3 Skin: no rash Dx/Plan (1) Hypokalemia Code(s): E87.6 - HYPOKALEMIA Status: Acute Comment: will replace orally (2) Metabolic acidosis Code(s): E87.2 - ACIDOSIS Status: Acute (3) Type 2 diabetes mellitus with peripheral neuropathy Code(s): E11.42 - TYPE 2 DIABETES MELLITUS WITH DIABETIC POLYNEUROPATHY Status : Chronic (4) Rapid atrial fibrillation Code(s): I48.91 - UNSPECIFIED ATRIAL FIBRILLATION Status: Chronic Comment: rate controlled, Dr Jo following (5) Chronic alcohol use Code(s): F10.10 - ALCOHOL ABUSE, UNCOMPLICATED Status: Chronic (6) Chronic anemia Code(s): D64.9 - ANEMIA, UNSPECIFIED Status: Chronic - Plan cont current plan of care * . awaiting placement DC planning. ? drug rehab
[2017-05-28] MEDS: traZODone HCl 50 MG TAB PO SCH (20:38)
[2017-05-29] MEDS: Ferrous Sulfate 325 MG TAB PO SCH (08:17)
[2017-05-29] MEDS: Atenolol 50 MG TAB PO SCH ×2 (08:17→19:49)
[2017-05-29] MEDS: Multivitamin W/ Minerals 1 TAB PO SCH (08:17)
[2017-05-29] MEDS: Gabapentin 300 MG CAP PO SCH ×3 (08:17→19:49)
[2017-05-29] MEDS: Aspirin 81 mg Enteric Coated Tablet PO SCH (08:18)
[2017-05-29] MEDS: Amlodipine 10 MG TAB PO SCH (08:18)
[2017-05-29] MEDS: chlordiazePOXIDE HCl 25 MG CAP PO SCH ×3 (08:19→19:49)
[2017-05-29] MEDS: Docusate 100 MG CAP PO SCH ×2 (08:19→20:58)
[2017-05-29] MEDS: Folic Acid 1 MG TAB PO SCH (08:19)
[2017-05-29] MEDS: Enoxaparin Sodium 40 MG/0.4 ML SYRINGE SC SCH (08:19)
--- NOTE | 2017-05-29 13:24 | PDOC.PN ---
- Subjective Encounter Start Date: 05/29/17 Encounter Start Time: 13:22 Patient seen and examined. No new complaints. No overnight events. feels good today. ambulating well. - Objective Resuscitation Status: Resuscitation Status FULL:Full Resuscitation MAR Reviewed: Yes Vital Signs & Weight: Vital Signs (12 hours) Temp Pulse Resp BP BP Pulse Ox 05/29/17 11:14 98.2 F 66 16 118/75 97 05/29/17 08:18 73 144/88 H 05/29/17 08:17 697 H 144/88 H 05/29/17 08:00 97.9 F 73 16 144/88 H 98 Weight Admit Weight 179 lb 9.6 oz Weight 174 lb 1 oz I&O: 05/28/17 05/29/17 05/30/17 06:59 06:59 06:59 Intake Total 2300 2640 Balance 2300 2640 Result Diagrams: 05/28/17 04:09 05/28/17 04:09 Additional Labs: Accuchecks 05/29/17 05/29/17 05/28/17 11:13 04:38 20:17 POC Glucose 255 H 145 H 262 H 05/28/17 15:39 POC Glucose 239 H Phys Exam - Physical Examination Constitutional: NAD HEENT: sclera anicteric Neck: supple Respiratory: no wheezing, no rales Cardiovascular: RRR Gastrointestinal: soft Musculoskeletal: no edema Neurological: non-focal, moves all 4 limbs Psychiatric: normal affect, A&O x 3 Skin: no rash Dx/Plan (1) Hypokalemia Code(s): E87.6 - HYPOKALEMIA Status: Acute Comment: will replace orally (2) Metabolic acidosis Code(s): E87.2 - ACIDOSIS Status: Acute (3) Type 2 diabetes mellitus with peripheral neuropathy Code(s): E11.42 - TYPE 2 DIABETES MELLITUS WITH DIABETIC POLYNEUROPATHY Status : Chronic (4) Rapid atrial fibrillation Code(s): I48.91 - UNSPECIFIED ATRIAL FIBRILLATION Status: Chronic Comment: rate controlled, Dr Jo following (5) Chronic alcohol use Code(s): F10.10 - ALCOHOL ABUSE, UNCOMPLICATED Status: Chronic (6) Chronic anemia Code(s): D64.9 - ANEMIA, UNSPECIFIED Status: Chronic - Plan awaiting rehab placement ? alcohol rehab thru behavioral health.
[2017-05-29] MEDS: traZODone HCl 50 MG TAB PO SCH (19:49)
[2017-05-30] MEDS: Aspirin 81 mg Enteric Coated Tablet PO SCH (08:31)
[2017-05-30] MEDS: chlordiazePOXIDE HCl 25 MG CAP PO SCH ×3 (08:31→21:18)
[2017-05-30] MEDS: Docusate 100 MG CAP PO SCH ×2 (08:31→21:18)
[2017-05-30] MEDS: Multivitamin W/ Minerals 1 TAB PO SCH (08:31)
[2017-05-30] MEDS: Atenolol 50 MG TAB PO SCH ×2 (08:31→21:17)
[2017-05-30] MEDS: Folic Acid 1 MG TAB PO SCH (08:31)
[2017-05-30] MEDS: Enoxaparin Sodium 40 MG/0.4 ML SYRINGE SC SCH (08:32)
[2017-05-30] MEDS: Amlodipine 10 MG TAB PO SCH (08:32)
[2017-05-30] MEDS: Gabapentin 300 MG CAP PO SCH ×3 (08:32→21:17)
[2017-05-30] MEDS: Ferrous Sulfate 325 MG TAB PO SCH (08:32)
[2017-05-30 12:03] VITALS: BMI 24.9
--- NOTE | 2017-05-30 12:46 | PDOC.PN ---
- Subjective Encounter Start Date: 05/30/17 Encounter Start Time: 12:44 Patient seen and examined. No new complaints. No overnight events. wants to go home Brother want him to go to alcohol rehab - Objective Resuscitation Status: Resuscitation Status FULL:Full Resuscitation MAR Reviewed: Yes Vital Signs & Weight: Vital Signs (12 hours) Temp Pulse Resp BP BP Pulse Ox 05/30/17 11:30 97.9 F 67 18 143/71 H 93 L 05/30/17 08:32 71 146/73 H 05/30/17 08:31 71 146/73 H 05/30/17 08:00 97.9 F 67 18 146/73 H 97 05/30/17 07:42 98.3 F 73 16 146/73 H 98 Weight Admit Weight 179 lb 9.6 oz Weight 174 lb 1 oz I&O: 05/29/17 05/30/17 05/31/17 06:59 06:59 06:59 Intake Total 2640 1320 240 Balance 2640 1320 240 Result Diagrams: 05/28/17 04:09 05/28/17 04:09 Additional Labs: Accuchecks 05/30/17 05/30/17 05/29/17 10:56 06:19 19:49 POC Glucose 165 H 169 H 230 H 05/29/17 16:35 POC Glucose 156 H Phys Exam - Physical Examination Constitutional: NAD HEENT: sclera anicteric Neck: supple Respiratory: no wheezing, no rales Cardiovascular: RRR Gastrointestinal: soft Musculoskeletal: no edema Neurological: non-focal, moves all 4 limbs Psychiatric: normal affect, A&O x 3 Skin: no rash Dx/Plan (1) Hypokalemia Code(s): E87.6 - HYPOKALEMIA Status: Acute Comment: will replace orally (2) Metabolic acidosis Code(s): E87.2 - ACIDOSIS Status: Acute (3) Type 2 diabetes mellitus with peripheral neuropathy Code(s): E11.42 - TYPE 2 DIABETES MELLITUS WITH DIABETIC POLYNEUROPATHY Status : Chronic (4) Rapid atrial fibrillation Code(s): I48.91 - UNSPECIFIED ATRIAL FIBRILLATION Status: Chronic Comment: rate controlled, Dr Jo following (5) Chronic alcohol use Code(s): F10.10 - ALCOHOL ABUSE, UNCOMPLICATED Status: Chronic (6) Chronic anemia Code(s): D64.9 - ANEMIA, UNSPECIFIED Status: Chronic - Plan * . family wishes him to go to alcohol rehab CM for DC planning.
[2017-05-30] MEDS: traZODone HCl 50 MG TAB PO SCH (21:17)
[2017-05-31 08:13] VITALS: BP 131/75; TEMP 97.5
[2017-05-31] MEDS: Enoxaparin Sodium 40 MG/0.4 ML SYRINGE SC SCH (09:13)
[2017-05-31] MEDS: Atenolol 50 MG TAB PO SCH (09:13)
[2017-05-31] MEDS: Ferrous Sulfate 325 MG TAB PO SCH (09:14)
[2017-05-31] MEDS: Folic Acid 1 MG TAB PO SCH (09:14)
[2017-05-31] MEDS: Multivitamin W/ Minerals 1 TAB PO SCH (09:14)
[2017-05-31] MEDS: Docusate 100 MG CAP PO SCH (09:14)
[2017-05-31] MEDS: Aspirin 81 mg Enteric Coated Tablet PO SCH (09:14)
[2017-05-31] MEDS: Amlodipine 10 MG TAB PO SCH (09:14)
[2017-05-31] MEDS: Gabapentin 300 MG CAP PO SCH (09:14)
--- NOTE | 2017-05-31 09:42 | DIS ---
DATE OF ADMISSION: 05/17/2017 DATE OF DISCHARGE: 05/31/2017 CHIEF COMPLAINT: Altered mental status, ETOH intoxication. DISCHARGE DIAGNOSES: 1. Altered mental status. 2. ETOH intoxication. HOSPITAL COURSE: The patient was admitted due to being found down and having altered mental status. The patient has a long history of ETOH abuse, multiple admissions for rehab. The patient was admitt ed and supportive therapy was administered. He was found to have rhabdomyolysis as well as a febrile illness. The patient was empirically treated with Zosyn and vancomycin. The patient was also treat ed with multivitamins, thiamine, folate. The patient's mental status improved during his hospital co urse. After conversation with his family and case management, the family wanted the patient to be se nt back to inpatient rehab and detoxification. The patient agreed to this process. There were no ot her untoward complications during his hospital stay. He was finally accepted by [facility] and will be transferred there today. DISCHARGE DISPOSITION: To inpatient alcohol detox. DISCHARGE DIET: Heart healthy. DISCHARGE MEDICATIONS: Please see medication rec list. DISCHARGE ACTIVITY: As tolerated with walker. PHYSICAL EXAMINATION: GENERAL: He is in no acute distress. HEENT: Normocephalic, atraumatic. EYES: PERRL. Extraocular muscles intact. CARDIAC: Irregularly irregular. LUNGS: Clear to auscultation. ABDOMEN: Soft, nontender, nondistended. EXTREMITIES: No clubbing, cyanosis or edema. The patient does have a resting tremor which he report s as a chronic condition. FOLLOWUP: The patient is to follow up with his primary care physician in 2-3 weeks. The patient is to be treated at an inpatient alcohol detoxification center. His disposition from there will be hand led by the staff at that facility.
== END 2017-05-31 12:12 | DRG 558 ==
LOC: ERS 10:54 → 2SE 13:49 → OBSVTOIN 13:49 → 2SE 05-19 15:14 → T4-A 05-21 11:24
PROVIDERS: ADMIT Emergency Medicine; ATTEND Emergency Medicine
DX: M62.82 Rhabdomyolysis (principal); F10.231 Alcohol dependence with withdrawal delirium; E11.40 Type 2 diabetes mellitus with diabetic neuropathy, unspecified; E87.2 Acidosis; I10 Essential (primary) hypertension; Z85.46 Personal history of malignant neoplasm of prostate; E87.6 Hypokalemia; D64.9 Anemia, unspecified; I48.0 Paroxysmal atrial fibrillation; M70.42 Prepatellar bursitis, left knee; R79.89 Other specified abnormal findings of blood chemistry; Y90.0 Blood alcohol level of less than 20 mg/100 ml
CPT/HCPCS: 36415; 36416; 70450; 70551; 71010; 80048; 80053; 80202; 80306; 80307; 81003; 81015; 82140; 82550; 82553; 83605; 83690; 83735; 84443; 84484; 85025; 85652; 87040; 93005; 96361; 96365; G8978-GP-CM; G8979-GP-CK; G8987-GO-CM; G8988-GO-CK; G8996-GN-CH; G8996-GN-CI; G8997-GN-CH; G8997-GN-CI; J1630; J1650; J2543; J3370; J3411; J3475; J7042; J7050

== ENCOUNTER 2017-07-03 23:52 | Emergency (ER) | payer MEDICARE ==
[2017-07-04] MEDS ORDERED: Dextrose 50% Abboject 50 ML SYRINGE ONE ×2 (00:27→07:42)
[2017-07-04 00:47] LABS: #Monocytes 0.4 thou/uL (0.11-0.59); #Neutrophils 4.8 thou/uL (1.40-6.50); %Basophils 0.3 % (0.0-1.0); %Eosinophils 0.5 % (0.0-10.0); %Lymphocytes 16.4 % (21.0-51.0); %Neutrophils 76.8 % (42.0-75.0); Hemoglobin 13.4 g/dL (14.0-18.0); Mean Corpuscular Hemoglobin 30.8 pg (27.0-31.0); Mean Corpuscular Volume 93.5 fl (80.0-94.0); Mean Platelet Volume 6.6 fL (7.4-10.4); Platelet Count 255 thou/uL (130-400); RBC Distribution Width 15.4 % (11.5-14.5); Red Blood Cell (RBC) Count 4.33 mill/uL (4.70-6.10); White Blood Cell (WBC) Count 6.3 thou/uL (4.8-10.8)
[2017-07-04 01:00] LABS: ALT (SGPT) 13 U/L (8-55); AST (SGOT) 25 U/L (5-34); Albumin 4.4 g/dL (3.4-4.8); Alcohol Less than 10 mg/dL (Less than 10); Alkaline Phosphatase 92 U/L (40-150); Anion Gap 12 mmol/L (10-20); BUN (Urea Nitrogen) 21 mg/dL (8.4-25.7); Bilirubin, Total 0.7 mg/dL (0.2-1.2); Calc. Creatinine Clearance 0 mL/min (70-130); Calcium 10.3 mg/dL (7.8-10.44); Carbon Dioxide 27 mmol/L (23-31); Chloride 106 mmol/L (98-107); Estimated GFR-MDRD Greater than 90; Globulin 3.5 g/dL (2.4-3.5); Glucose 97 mg/dL (80-115); Protein, Total 7.9 g/dL (5.8-8.1); Sodium 141 mmol/L (136-145)
[2017-07-04] MEDS ORDERED: Ondansetron HCl/PF 4 MG/2 ML Vial ONE (01:35)
[2017-07-04] MEDS ORDERED: Lorazepam 2 MG/ML VIAL ONE (05:34)
== END 2017-07-04 12:09 | disposition home or self-care (01) ==
LOC: ERS 23:52
DX: F10.20 Alcohol dependence, uncomplicated (principal); Y90.0 Blood alcohol level of less than 20 mg/100 ml; L03.032 Cellulitis of left toe; E11.9 Type 2 diabetes mellitus without complications; I10 Essential (primary) hypertension; F32.9 Major depressive disorder, single episode, unspecified; G62.9 Polyneuropathy, unspecified; Z79.899 Other long term (current) drug therapy
CPT/HCPCS: 36416; 80053; 80307; 85025; 93005; 96360; 96361; 96374; 96375; 96376; J2060; J2405

== ENCOUNTER 2017-07-05 14:34 | Observation (INO) | payer MEDICARE ==
[2017-07-05] MEDS ORDERED: Multivitamins, Adult 10 ML, Thiamine HCl 100 MG, Folic Acid 1 MG in Dextrose 5 %-0.45 %... IV SCH ×4 (15:15)
[2017-07-05 15:25] LABS: Bilirubin Negative (Negative); Blood, Urine Negative (Negative); Clarity CLEAR (Clear); Glucose, Urine (Dipstick) Negative (Negative); Leukocyte Negative (Negative); Nitrite Negative (Negative); Protein, Urine (Dipstick) Negative (Neg-Trace); Specific Gravity, Urine 1.013 (1.002-1.036); Urobilinogen 0.2 mg/dL (0.2-1.0)
[2017-07-05 15:35] LABS: Medtox Reader # READER 4
[2017-07-05 15:36] LABS: Amphetamine Not Detected (NotDetected); Barbiturates Screen Not Detected (NotDetected); Benzodiazepine Screen Detected (NotDetected); Cocaine Metabolite Screen Not Detected (NotDetected); Medtox Control Line Valid? VALID (VALID); Methadone Not Detected (NotDetected); Methamphetamine Not Detected (NotDetected); Opiate Screen Not Detected (NotDetected); Oxycodone Screen Not Detected (NotDetected); Phencyclidine (PCP) Not Detected (NotDetected); THC/Cannabinoid Screen Not Detected (NotDetected); Tricyclic Screen Not Detected (NotDetected)
[2017-07-05 15:44] LABS: #Eosinphils 0.1 thou/uL (0.0-0.7); #Lymphocytes 1.2 thou/uL (1.20-3.40); #Monocytes 0.7 thou/uL (0.11-0.59); #Neutrophils 5.2 thou/uL (1.40-6.50); %Basophils 0.3 % (0.0-1.0); %Eosinophils 0.7 % (0.0-10.0); %Lymphocytes 16.3 % (21.0-51.0); %Monocytes 10.2 % (0.0-10.0); %Neutrophils 72.4 % (42.0-75.0); Hemoglobin 13.3 g/dL (14.0-18.0); Mean Corpuscular HGB CONC 32.6 g/dL (32.0-36.0); Mean Corpuscular Hemoglobin 31.2 pg (27.0-31.0); Mean Corpuscular Volume 95.9 fl (80.0-94.0); Platelet Count 213 thou/uL (130-400); RBC Distribution Width 15.5 % (11.5-14.5); Red Blood Cell (RBC) Count 4.27 mill/uL (4.70-6.10); White Blood Cell (WBC) Count 7.1 thou/uL (4.8-10.8)
[2017-07-05 16:01] LABS: ALT (SGPT) 16 U/L (8-55); AST (SGOT) 34 U/L (5-34); Albumin 3.9 g/dL (3.4-4.8); Alkaline Phosphatase 84 U/L (40-150); Anion Gap 14 mmol/L (10-20); BUN (Urea Nitrogen) 11 mg/dL (8.4-25.7); Bilirubin, Total 0.6 mg/dL (0.2-1.2); Calc. Creatinine Clearance 0 mL/min (70-130); Calcium 9.3 mg/dL (7.8-10.44); Carbon Dioxide 20 mmol/L (23-31); Chloride 107 mmol/L (98-107); Estimated GFR-MDRD Greater than 90; Globulin 3.3 g/dL (2.4-3.5); Glucose 164 mg/dL (80-115); Protein, Total 7.2 g/dL (5.8-8.1); Sodium 137 mmol/L (136-145)
[2017-07-05 16:07] LABS: Troponin I Less than 0.010 ng/mL (< 0.028)
[2017-07-05 16:08] LABS: Acetaminophen Less than 6.0 mcg/mL (10.0-30.0); Alcohol Less than 10 mg/dL (Less than 10); CK (CPK) 410 U/L (30-200); Salicylate Less than 8.0 mg/dL (15.0-30.0)
[2017-07-05 19:39] LABS: Lactic Acid 1.3 mmol/L (0.5-2.2)
[2017-07-05 22:16] VITALS: BMI 24.7
--- NOTE | 2017-07-06 03:03 | HP ---
DATE OF ADMISSION: 07/05/2017 Patient was seen and examined on 07/05/2017. PRIMARY CARE PHYSICIAN: Dr. Lu. CHIEF COMPLAINT: Altered mentation. HISTORY OF PRESENT ILLNESS: Patient is a 62-year-old male with diabetes mellitus type 2, currently o n glyburide 5 mg daily presented to the emergency room by EMS with altered mentation. Patient was di scharged to inpatient rehabilitation, last month. Patient was found on the floor by the home health care, for which EMS was called. His blood sugar wa s in 30s. Patient is currently on glyburide 5 mg daily. He reports that he ate good breakfast. EMS gave the patient glucagon D50, thiamine with improved mentation. He was brought into the emergency room for evaluation. PAST MEDICAL HISTORY: 1. History of chronic alcoholism. He completed rehab for 5 weeks. He has not restarted drinking. 2. Diabetes mellitus, type 2. 3. Hypertension. 4. Diabetic neuropathy. 5. Paroxysmal atrial fibrillation, not an anticoagulation candidate. 6. History of prepatellar bursitis. 7. History of clavicle fracture. 8. History of prostate cancer. 9. History of MRSA infection. 10. Chronic left third toe infection followed by Dr. Mccauley. PAST SURGICAL HISTORY: 1. Prepatellar bursitis drainage last year. 2. Left second and first toe amputation last year. ALLERGIES: No known drug allergies. CURRENT HOME MEDICATIONS: Family to bring accurate list of medications. FAMILY HISTORY: Positive for heart disease. SOCIAL HISTORY: As discussed above. No tobacco or current use of alcohol. REVIEW OF SYSTEMS: The following complete review of systems was negative, unless otherwise mentioned in the HPI or below: Constitutional: Weight loss or gain, ability to conduct usual activities. Sk in: Rash, itching. Eyes: Double vision, pain. ENT/Mouth: Nose bleeding, neck stiffness, pain, te nderness. Cardiovascular: Palpitations, dyspnea on exertion, orthopnea. Respiratory: Shortness of breath, wheezing, cough, hemoptysis, fever, or night sweats. Gastrointestinal: Poor appetite, abdo eric pain, heartburn, nausea, vomiting, constipation, or diarrhea. Genitourinary: Urgency, frequen cy, dysuria, nocturia. Musculoskeletal: Pain, swelling. Neurologic/Psychiatric: Anxiety, depressi on. Allergy/Immunologic: Skin rash, bleeding tendency. PHYSICAL EXAMINATION: VITAL SIGNS: In the emergency room showed temperature 97.8, respirations 18, pulse of 68, blood pres sure 166/102 with O2 saturation 100% on room air. GENERAL: A 62-year-old male in no apparent distress, somewhat anxious. HEENT: Head atraumatic, normocephalic. Sclerae anicteric. Moist mucous membranes. No oral lesion. NECK: Supple, no JVD, no carotid bruit. LUNGS: Clear to auscultation bilaterally. HEART: S1, S2 present. Regular rate and rhythm. ABDOMEN: Soft, nontender, bowel sounds present. EXTREMITIES: No edema or calf tenderness. NEUROLOGIC: Grossly nonfocal, moves all four extremities. Power was 5/5 in all extremities. Finger -to-nose test was normal. Sensation to touch was diminished in bilateral feet, which is chronic per patient report. SKIN: Warm and dry. PSYCHIATRY: Patient is alert, awake, oriented x3. PERIPHERAL VASCULAR: Radial pulses palpable bilaterally. MUSCULOSKELETAL: No joint swelling or tenderness. LABORATORY FINDINGS: Plasma alcohol less than 10. WBC was 7.1 with hemoglobin 13.3, hematocrit 41, platelet of 213. Chemistries showed sodium of 137, potassium 4, chloride 107, bicarbonate 20. Lacti c acid was 2.5. Repeat lactic acid after hydration was 1.3. Troponins were negative. CK-MB was 7.0 . Please note, the patient has CK-MB elevation during previous hospitalization. His CK was 410. EKG by my review showed sinus bradycardia with heart rate of 51, left axis deviation. No significant ST-T wave changes noted. IMPRESSION AND PLAN: 1. Encephalopathy secondary to hypoglycemia, resolved. 2. Dehydration with lactic acidosis. 3. Elevated CK. 4. Chronic anemia. 5. History of chronic alcoholism, completed inpatient alcohol rehabilitation. 6. Diabetes mellitus, type 2. 7. Hypertension. 8. Paroxysmal atrial fibrillation, not an anticoagulation candidate. 9. Chronic left third toe ulcer, followed by Wound Care. 10. History of prostate cancer. PLAN: Patient will be monitored as 23-hour observation. Accu-Cheks will be done every 4 hourly. Gl yburide will be held and probably to be discontinued completely. We will continue IV hydration. Rec heck CK and CK-MB in a.m. We will check other electrolytes in a.m. Continue wound care. We will resume home wound care at discharge. Plan of care was discussed with the patient in detail. He stated understanding.
[2017-07-06] MEDS: Sodium Chloride 0.9% 1,000 ML IV SCH ×2 (03:45→13:49)
[2017-07-06 05:08] LABS: Hemoglobin 11.8 g/dL (14.0-18.0); Platelet Count 190 thou/uL (130-400)
[2017-07-06 05:11] LABS: Hemoglobin A1c 5.6 % (4.0-6.0)
[2017-07-06 05:23] LABS: Albumin 3.4 g/dL (3.4-4.8); Anion Gap 11 mmol/L (10-20); BUN (Urea Nitrogen) 10 mg/dL (8.4-25.7); BUN/Creatinine Ratio 12.66; CK (CPK) 204 U/L (30-200); Calc. Creatinine Clearance 109 mL/min (70-130); Calcium 9.1 mg/dL (7.8-10.44); Carbon Dioxide 24 mmol/L (23-31); Chloride 107 mmol/L (98-107); Estimated GFR-MDRD Greater than 90; Glucose 192 mg/dL (80-115); Magnesium 1.6 mg/dL (1.6-2.6); Phosphorus 3.2 mg/dL (2.3-4.7); Potassium 3.6 mmol/L (3.5-5.1); Sodium 138 mmol/L (136-145)
[2017-07-06 05:26] LABS: CKMB 3.5 ng/mL (0-6.6); Troponin I Less than 0.010 ng/mL (< 0.028)
[2017-07-06] MEDS: Gabapentin 300 MG CAP PO SCH ×2 (08:43→15:19)
[2017-07-06] MEDS ORDERED: Multivit, Therapeutic 1 TAB PO SCH (09:00)
[2017-07-06] MEDS ORDERED: MULTIVITAMIN PO SCH (09:00)
[2017-07-06] MEDS ORDERED: Aspirin 81 mg Enteric Coated Tablet PO SCH (09:00)
[2017-07-06] MEDS ORDERED: Folic Acid 1 MG TAB PO SCH ×2 (09:00)
[2017-07-06] MEDS ORDERED: Ferrous Sulfate 325 MG TAB PO SCH (09:00)
[2017-07-06] MEDS ORDERED: Non-Formulary Item 1 EACH (Ferrous Sulfate [Ferrous Sulfate] 325 MG) PO SCH (09:00)
[2017-07-06] MEDS ORDERED: Dextrose 5% in Water 1,000 ML IV PRN (11:04)
[2017-07-06] MEDS ORDERED: HumaLOG 300 UNITS/3 ML VIAL SC PRN (11:04)
[2017-07-06] MEDS ORDERED: Dextrose 50% Abboject 50 ML SYRINGE SLOW IVP PRN (11:04)
--- NOTE | 2017-07-06 11:05 | PDOC.PN ---
- Subjective Encounter Start Date: 07/06/17 Encounter Start Time: 11:09 Subjective: Encephalopathy resolved. Now AO x 3 and speaking in full sentences. -: No acute events overnight. - Objective MAR Reviewed: Yes Vital Signs & Weight: Vital Signs (12 hours) Temp Pulse Resp BP BP Pulse Ox 07/06/17 09:02 80 160/75 H 07/06/17 07:55 98.1 F 72 20 07/06/17 07:20 98.1 F 72 20 172/90 H 99 07/06/17 04:00 98.7 F 61 18 132/67 96 Weight Weight 177 lb 7 oz I&O: 07/05/17 07/06/17 07/07/17 06:59 06:59 06:59 Intake Total 1830 Output Total 400 Balance 1430 Result Diagrams: 07/06/17 04:13 07/06/17 04:13 Additional Labs: Accuchecks 07/06/17 07/06/17 07/05/17 10:13 06:03 21:21 POC Glucose 174 H 146 H 199 H Phys Exam - Physical Examination Constitutional: NAD HEENT: PERRLA, moist MMs, sclera anicteric Neck: supple, full ROM Respiratory: no wheezing, no rales, no rhonchi, clear to auscultation bilateral Cardiovascular: RRR, no significant murmur, no rub Gastrointestinal: soft, non-tender, no distention, positive bowel sounds Musculoskeletal: no edema, pulses present Neurological: non-focal, moves all 4 limbs Psychiatric: normal affect, A&O x 3 Skin: no rash, normal turgor Dx/Plan (1) Acute encephalopathy Code(s): G93.40 - ENCEPHALOPATHY, UNSPECIFIED Status: Resolved Comment: 2/2 hypoglycemia from glyburide. Reports taking glyburide twice daily. Resolved. Hypoglycemia protocol in place. Will encourage patient to take medication once a day. For now, will hold. (2) Paroxysmal atrial fibrillation Code(s): I48.0 - PAROXYSMAL ATRIAL FIBRILLATION Status: Chronic Plan: Continue ASA. Comment: not an anticoagulation candidate due to alcoholism (3) Type 2 diabetes mellitus with peripheral neuropathy Code(s): E11.42 - TYPE 2 DIABETES MELLITUS WITH DIABETIC POLYNEUROPATHY Status : Chronic Comment: SSI instituted, glyburide held 2/2 hypoglycemia Continue other home meds. (4) Hypertension Code(s): I10 - ESSENTIAL (PRIMARY) HYPERTENSION Status: Chronic Qualifiers: Hypertension type: essential hypertension Comment: Not at goal. Will resume Atenolol. (5) Chronic alcohol use Code(s): F10.10 - ALCOHOL ABUSE, UNCOMPLICATED Status: Resolved Comment: Reports last drink was over a month ago. No signs of withdrawal. Will monitor. Got thiamie and glucose in the field. Continue vitamin supplements, thiamine. - Plan cont current plan of care * .
[2017-07-06] MEDS ORDERED: Heparin 5,000 UNITS/ML VIAL SC SCH (15:00)
[2017-07-06 15:34] VITALS: BP 140/73; TEMP 98.9
[2017-07-06] MEDS ORDERED: Atenolol 50 MG TAB PO SCH (21:00)
--- NOTE | 2017-07-06 23:33 | DIS ---
DATE OF ADMISSION: 07/05/2017. DATE OF DISCHARGE: 07/06/2017. DISCHARGE DIAGNOSES: Hypoglycemia; type 2 diabetes mellitus; hypertension; diabetic neuropathy; paro xysmal atrial fibrillation, not an anticoagulation candidate. HISTORY OF PRESENT ILLNESS: 62-year-old male with type 2 diabetes mellitus who is on 5 mg of glyburi de, but reports taking it twice a day, who presented to the emergency room due to altered mentation. He was actually admitted last month and discharged to inpatient rehabilitation. He was found on the floor by his home health care after she had tried to get in with no one answering the door. His blo od sugar in the field was in the 30s. He reported that he ate breakfast, but states today that yeste rday was a complete blur to him. He was given thiamine with D50 and glucagon by EMS with improvement in his mentation and brought to the emergency room for further evaluation. HOSPITAL COURSE: While in the hospital, he was placed on IV fluid with dextrose with improvement in his blood glucose. He is now alert and well-oriented and states he was taking his glipizide twice a day. He will be discharged on his home medications with glyburide decreased to 2.5 mg daily. He is to follow up with his primary care physician for further glycemic control. DISCHARGE MEDICATIONS: Aspirin 81 mg daily, atenolol 50 mg b.i.d., ferrous sulfate 325 mg daily, fol ic acid 1 mg daily, gabapentin 300 mg t.i.d., glyburide 2.5 mg q.a.m., multivitamins 1 tablet daily. CONSULTATION: None. PHYSICAL EXAMINATION: VITAL SIGNS: Temperature 98.9 degree Fahrenheit, pulse 70, respirations 18, oxygen saturation 96% on room air, blood pressure 140/73. For full physical examination, refer to today's progress note. LABORATORY DATA: Sodium 138, potassium 3.6, chloride 107, carbon dioxide 24, anion gap 11, BUN 10, c reatinine 0.79, glucose 177, A1c 5.6. IMAGING: None. PROCEDURES: None. DIET: Heart healthy and diabetic. CARE GOALS: He is to follow up with his primary care physician within 1 week of discharge. He is en couraged to take his medications as currently prescribed and to return to the emergency room if he lynn d any episodes of lightheadedness, dizziness, or altered mentation. ACTIVITY: To resume as tolerated. DISCHARGE TIME: 65 minutes including chart review and documentation.
== END 2017-07-06 17:58 | disposition home or self-care (01) ==
LOC: ERS 14:34 → 2SW 17:55
PROVIDERS: ADMIT Internal Medicine; ATTEND Internal Medicine
DX: E11.649 Type 2 diabetes mellitus with hypoglycemia without coma (principal); I10 Essential (primary) hypertension; E11.40 Type 2 diabetes mellitus with diabetic neuropathy, unspecified; I48.0 Paroxysmal atrial fibrillation; F10.21 Alcohol dependence, in remission; L08.9 Local infection of the skin and subcutaneous tissue, unspecified; E87.2 Acidosis; E86.0 Dehydration; D64.9 Anemia, unspecified; R74.8 Abnormal levels of other serum enzymes; Z79.82 Long term (current) use of aspirin; Z79.84 Long term (current) use of oral hypoglycemic drugs; Z79.899 Other long term (current) drug therapy; Z89.422 Acquired absence of other left toe(s); Z98.890 Other specified postprocedural states; Z87.81 Personal history of (healed) traumatic fracture; Z85.46 Personal history of malignant neoplasm of prostate; Z86.14 Personal history of Methicillin resistant Staphylococcus aureus infection
CPT/HCPCS: 80053; 80069; 80306; 80307; 81003; 82550 ×2; 82553 ×2; 82962 ×2; 83036; 83605; 83735; 84484 ×2; 85014; 85018; 85025; 85049; 93005; 96361; 96365; 96366; 97139; 99285; G0378; 36415; 36416; A4216; J1644; J3411; J7042

== ENCOUNTER 2017-07-20 12:22 | Outpatient (CLI) | payer MEDICARE ==
[2017-07-20 14:00] LABS: #Eosinphils 0.3 thou/uL (0.0-0.7); #Monocytes 0.4 thou/uL (0.11-0.59); #Neutrophils 2.6 thou/uL (1.40-6.50); %Basophils 0.9 % (0.0-1.0); %Eosinophils 6.4 % (0.0-10.0); %Monocytes 6.7 % (0.0-10.0); Hemoglobin 12.9 g/dL (14.0-18.0); Mean Corpuscular Hemoglobin 31.5 pg (27.0-31.0); Mean Corpuscular Volume 95.4 fl (80.0-94.0); Mean Platelet Volume 7.7 fL (7.4-10.4); Platelet Count 351 thou/uL (130-400); RBC Distribution Width 15.6 % (11.5-14.5); Red Blood Cell (RBC) Count 4.08 mill/uL (4.70-6.10); White Blood Cell (WBC) Count 5.3 thou/uL (4.8-10.8)
== END 2017-07-20 12:23 | disposition home or self-care (01) ==
LOC: LABBT 12:22
PROVIDERS: ATTEND Specialist
DX: Z01.818 Encounter for other preprocedural examination (principal); L03.032 Cellulitis of left toe
CPT/HCPCS: 85025; 93005; 93010

== ENCOUNTER 2017-07-24 05:44 | Day surgery (SDC) | payer MEDICARE ==
[2017-07-20 12:45] VITALS: BMI 25.8
[2017-07-24] MEDS ORDERED: Ampicillin/Sulbactam 3 GM, Admixture Fee 1 EACH in Sodium Chloride 0.9% 100 ML IVPB SCH (07:00)
[2017-07-24] MEDS ORDERED: Fentanyl 100 MCG/2 ML VIAL ONE (07:04)
[2017-07-24] MEDS ORDERED: HYDROmorphone 0.5 MG/0.5 ML SYRINGE ONE (07:04)
[2017-07-24] MEDS ORDERED: Midazolam HCl 2 mg/2 ml Vial ONE (07:12)
[2017-07-24] MEDS ORDERED: PROPOFOL 40 ML ONE (07:12)
[2017-07-24 07:48] LABS: Anion Gap 15 mmol/L (10-20); BUN (Urea Nitrogen) 18 mg/dL (8.4-25.7); Calc. Creatinine Clearance 90 mL/min (70-130); Calcium 9.9 mg/dL (7.8-10.44); Carbon Dioxide 24 mmol/L (23-31); Chloride 105 mmol/L (98-107); Estimated GFR-MDRD 78; Glucose 66 mg/dL (80-115); Potassium 5.3 mmol/L (3.5-5.1); Sodium 139 mmol/L (136-145)
--- NOTE | 2017-07-24 08:42 | OP ---
DATE OF PROCEDURE: 07/24/2017 PREOPERATIVE DIAGNOSES: Diabetic infection, left third toe with osteomyelitis (status post amputatio n of left first and second toes of the proximal phalanx previously). No evidence of peripheral arter ial disease. PROCEDURE: Amputation of left third toe through the proximal phalanx. Wound left open to heal by se condary intention. Wound VAC application for Wound Care. SURGEON: Dr. Matias Mccauley. ANESTHESIA: TIVA. PROCEDURE IN DETAIL: Patient taken to the operating room where under intravenous sedation, left lowe r extremity was prepared with ChloraPrep, draped in routine fashion. Incision was made for amputatio n of left third toe through the proximal phalanx with a fish mouth incision. Bone transected with a bone cutter and resected proximally with rongeur. Connective tissue debrided sharply. Good blood patel pply noted. Wound irrigated. Wound Care arrived and placed a wound VAC.
== END 2017-07-24 12:45 | disposition home or self-care (01) ==
LOC: SDC 05:44
PROVIDERS: ATTEND Specialist
PROC: 0QBR0ZZ Excision of Left Toe Phalanx, Open Approach (ICD-10-PCS; principal; 2017-07-24)
DX: E11.69 Type 2 diabetes mellitus with other specified complication (principal); M86.672 Other chronic osteomyelitis, left ankle and foot; E11.40 Type 2 diabetes mellitus with diabetic neuropathy, unspecified; I10 Essential (primary) hypertension; I48.0 Paroxysmal atrial fibrillation; F10.20 Alcohol dependence, uncomplicated; Z89.422 Acquired absence of other left toe(s); Z98.890 Other specified postprocedural states
CPT/HCPCS: 36416; 80048; 88305; 88311; J0295; J1170; J2250; J2704; J3010; J3370; J7050

== ENCOUNTER 2017-07-27 13:55 | Outpatient (CLI) | payer MEDICARE ==
--- NOTE | 2017-07-27 15:41 | PRG ---
DATE OF SERVICE: 07/27/2017 HISTORY: Mr. Germain Tran is a very pleasant 62-year-old gentleman previously seen in the Wound Center who now presents with a wound of the left foot subsequent to amputation of the third toe on 07/24/19 18. Negative pressure therapy was initiated subsequent to surgery and the patient has been receiving dressing changes of the wound VAC with the assistance of Home Health. The patient states he has a [facility] appointment with Dr. Matias Mccauley one week from today. PAST MEDICAL HISTORY: 1. Diabetes mellitus. 2. Hypertension. 3. Prostate carcinoma. 4. History of gastroesophageal reflux disease. 5. Chronic kidney disease. PAST SURGICAL HISTORY: Since the patient's visit to the Wound Center on 11/03/2016, Mr. Tran has und ergone amputation of the left third toe on 07/24/2017 as per HPI. MEDICATIONS: 1. Glyburide. 2. Gabapentin. 3. Centrum. 4. Iron. 5. Folic acid. PHYSICAL EXAMINATION: VITAL SIGNS: Temperature 98.7, pulse 91, respirations 18, blood pressure 121/73. Accu-Chek 111. EXTREMITIES: The wound of the left foot subsequent to amputation of the left third toe measures appr oximately 1.3 x 0.8 cm. Granulation tissue is present within the wound margins. No purulent drainag e is associated with the wound. No erythema of the skin surrounding the wound is present. No macera tion of the skin of the periwound is noted. A dorsalis pedis pulse and a posterior tibial pulse are both palpable on the left. No significant edema of the left foot is present on exam today. ASSESSMENT AND PLAN: 1. Left foot wound subsequent to amputation of third toe as described above. Negative pressure ther apy will be continued with dressing changes of the wound VAC with the assistance of Home Health. The patient has a followup appointment with Dr. Matias Mccauley one week from today. I will see Mr. Tran as needed after his evaluation by General Surgery. The patient understands and is in agreement with the preceding treatment plan. The wound VAC will be placed to settings of 125 mmHg continuous today . 2. Diabetes mellitus. The patient's Accu-Chek in clinic today is 111. The patient has been told th at for optimal wound healing, his blood glucoses should remain below 150. 3. Hypertension. 4. Prostate carcinoma. 5. History of gastroesophageal reflux disease. 6. Chronic kidney disease.
[2017-07-28] MEDS ORDERED: Sodium Chloride 0.9% 15 ML NEB ONE (14:36)
== END 2017-07-27 13:56 | disposition home or self-care (01) ==
LOC: WCC 13:55
PROVIDERS: ATTEND Family Medicine
DX: E11.621 Type 2 diabetes mellitus with foot ulcer (principal); L97.529 Non-pressure chronic ulcer of other part of left foot with unspecified severity; C61 Malignant neoplasm of prostate; K21.9 Gastro-esophageal reflux disease without esophagitis; N18.9 Chronic kidney disease, unspecified; I12.9 Hypertensive chronic kidney disease with stage 1 through stage 4 chronic kidney disease, or unspecified chronic kidney disease; Z79.899 Other long term (current) drug therapy; Z89.422 Acquired absence of other left toe(s)

== ENCOUNTER 2017-08-06 19:22 | Emergency (ER) | payer MEDICARE ==
[2017-08-06] MEDS ORDERED: Dextrose 50% Abboject 50 ML SYRINGE ONE (20:01)
[2017-08-06 20:07] LABS: #Lymphocytes 1.6 thou/uL (1.20-3.40); #Monocytes 0.3 thou/uL (0.11-0.59); #Neutrophils 4.1 thou/uL (1.40-6.50); %Basophils 0.6 % (0.0-1.0); %Eosinophils 0.6 % (0.0-10.0); %Lymphocytes 26.2 % (21.0-51.0); %Monocytes 5.4 % (0.0-10.0); %Neutrophils 67.2 % (42.0-75.0); Hemoglobin 12.1 g/dL (14.0-18.0); Mean Corpuscular HGB CONC 33.9 g/dL (32.0-36.0); Mean Corpuscular Hemoglobin 31.5 pg (27.0-31.0); Mean Corpuscular Volume 92.9 fl (80.0-94.0); Mean Platelet Volume 6.1 fL (7.4-10.4); Platelet Count 260 thou/uL (130-400); RBC Distribution Width 15.4 % (11.5-14.5); Red Blood Cell (RBC) Count 3.85 mill/uL (4.70-6.10); White Blood Cell (WBC) Count 6.1 thou/uL (4.8-10.8)
[2017-08-06] MEDS ORDERED: Lorazepam 2 MG/ML VIAL ONE ×2 (20:09→23:30)
[2017-08-06] MEDS ORDERED: Multivitamins, Adult 10 ML, Thiamine HCl 100 MG, Folic Acid 1 MG in Dextrose 5 %-0.45 %... IV SCH ×4 (20:15)
[2017-08-06 20:48] LABS: ALT (SGPT) 14 U/L (8-55); AST (SGOT) 29 U/L (5-34); Acetaminophen Less than 6.0 mcg/mL (10.0-30.0); Alcohol Less than 10 mg/dL (Less than 10); Alkaline Phosphatase 99 U/L (40-150); Anion Gap 19 mmol/L (10-20); BUN (Urea Nitrogen) 15 mg/dL (8.4-25.7); Bilirubin, Total 0.3 mg/dL (0.2-1.2); CK (CPK) 220 U/L (30-200); Calc. Creatinine Clearance 0 mL/min (70-130); Calcium 9.4 mg/dL (7.8-10.44); Carbon Dioxide 20 mmol/L (23-31); Chloride 105 mmol/L (98-107); Estimated GFR-MDRD 73; Globulin 3.6 g/dL (2.4-3.5); Glucose 64 mg/dL (80-115); Protein, Total 7.6 g/dL (5.8-8.1); Salicylate Less than 8.0 mg/dL (15.0-30.0); Sodium 139 mmol/L (136-145)
[2017-08-07 00:04] LABS: Amphetamine Not Detected (NotDetected); Barbiturates Screen Not Detected (NotDetected); Benzodiazepine Screen Not Detected (NotDetected); Cocaine Metabolite Screen Not Detected (NotDetected); Medtox Control Line Valid? VALID (VALID); Medtox Reader # READER 1; Methadone Not Detected (NotDetected); Methamphetamine Not Detected (NotDetected); Opiate Screen Not Detected (NotDetected); Oxycodone Screen Not Detected (NotDetected); Phencyclidine (PCP) Not Detected (NotDetected); THC/Cannabinoid Screen Not Detected (NotDetected); Tricyclic Screen Not Detected (NotDetected)
== END 2017-08-06 23:56 | disposition home or self-care (01) ==
LOC: ERS 19:22
DX: F10.239 Alcohol dependence with withdrawal, unspecified (principal); I10 Essential (primary) hypertension; E11.40 Type 2 diabetes mellitus with diabetic neuropathy, unspecified; F32.9 Major depressive disorder, single episode, unspecified; Z79.899 Other long term (current) drug therapy
CPT/HCPCS: 36415; 36416; 80053; 80306; 80307; 82550; 85025; 93005; 96361; 96365; 96375; 96376; J2060; J3411; J7042

== ENCOUNTER 2017-08-11 20:42 | Observation (INO) | payer MEDICARE ==
[2017-08-11] MEDS ORDERED: Lorazepam 2 MG/ML VIAL ONE ×2 (21:37→22:09)
[2017-08-11 21:44] LABS: #Lymphocytes 0.7 thou/uL (1.20-3.40); #Monocytes 0.5 thou/uL (0.11-0.59); #Neutrophils 9.6 thou/uL (1.40-6.50); %Basophils 0.1 % (0.0-1.0); %Eosinophils 0.2 % (0.0-10.0); %Lymphocytes 6.1 % (21.0-51.0); %Monocytes 4.4 % (0.0-10.0); %Neutrophils 89.1 % (42.0-75.0); Hemoglobin 13.8 g/dL (14.0-18.0); Mean Corpuscular HGB CONC 33.2 g/dL (32.0-36.0); Mean Corpuscular Hemoglobin 31.5 pg (27.0-31.0); Mean Corpuscular Volume 94.7 fl (80.0-94.0); Mean Platelet Volume 6.4 fL (7.4-10.4); Platelet Count 245 thou/uL (130-400); RBC Distribution Width 15.5 % (11.5-14.5); Red Blood Cell (RBC) Count 4.38 mill/uL (4.70-6.10); White Blood Cell (WBC) Count 10.8 thou/uL (4.8-10.8)
[2017-08-11] MEDS ORDERED: Multivitamins, Adult 10 ML, Thiamine HCl 100 MG, Folic Acid 1 MG in Dextrose 5 %-0.45 %... IV SCH ×4 (21:45)
[2017-08-11 22:03] LABS: ALT (SGPT) 13 U/L (8-55); AST (SGOT) 28 U/L (5-34); Albumin 4.2 g/dL (3.4-4.8); Alkaline Phosphatase 101 U/L (40-150); Anion Gap 19 mmol/L (10-20); BUN (Urea Nitrogen) 15 mg/dL (8.4-25.7); Calc. Creatinine Clearance 0 mL/min (70-130); Calcium 9.6 mg/dL (7.8-10.44); Carbon Dioxide 20 mmol/L (23-31); Chloride 104 mmol/L (98-107); Estimated GFR-MDRD 72; Globulin 3.5 g/dL (2.4-3.5); Potassium 5.3 mmol/L (3.5-5.1); Protein, Total 7.7 g/dL (5.8-8.1); Sodium 138 mmol/L (136-145)
[2017-08-11 22:06] LABS: Acetaminophen Less than 6.0 mcg/mL (10.0-30.0); Alcohol Less than 10 mg/dL (Less than 10); CK (CPK) 352 U/L (30-200); Salicylate Less than 8.0 mg/dL (15.0-30.0)
[2017-08-11 22:08] LABS: Glucose 56 mg/dL (80-115)
[2017-08-11 22:13] LABS: Amphetamine Not Detected (NotDetected); Barbiturates Screen Not Detected (NotDetected); Benzodiazepine Screen Detected (NotDetected); Cocaine Metabolite Screen Not Detected (NotDetected); Medtox Control Line Valid? VALID (VALID); Medtox Reader # READER 1; Methadone Not Detected (NotDetected); Methamphetamine Not Detected (NotDetected); Opiate Screen Not Detected (NotDetected); Oxycodone Screen Not Detected (NotDetected); Phencyclidine (PCP) Not Detected (NotDetected); THC/Cannabinoid Screen Not Detected (NotDetected); Tricyclic Screen Not Detected (NotDetected)
[2017-08-11] MEDS ORDERED: Dextrose 50% Abboject 50 ML SYRINGE ONE (22:44)
[2017-08-11 23:26] LABS: Bilirubin Negative (Negative); Blood, Urine Negative (Negative); Clarity CLEAR (Clear); Glucose, Urine (Dipstick) Negative (Negative); Leukocyte Trace (Negative); Nitrite Negative (Negative); Protein, Urine (Dipstick) Trace mg/dL (Neg-Trace); Specific Gravity, Urine 1.019 (1.002-1.036); Urobilinogen 0.2 mg/dL (0.2-1.0); pH, Urine 5.5 (5.0-9.0)
[2017-08-11 23:29] LABS: Bacteria/HPF None Seen HPF (None Seen); Hyaline Casts/LPF 0-3 HYALINE CAST LPF (0-3 Hyaline); Pathc Cast-AUWi Flag 0.54 (0-2.49); RBC/HPF 0-3 HPF (0-3); Squamous Epithelial 0-3 HPF (0-3); WBC/HPF 0-3 HPF (0-3)
--- NOTE | 2017-08-11 23:52 | RAD ---
FRONTAL RADIOGRAPH CHEST 08/11/17 COMPARISON: 05/17/17 HISTORY: Fever, recent syncope. FINDINGS: Old stable distal right clavicle fracture. No pneumothorax, pleural fluid, focal consolidation or germania eolar edema. IMPRESSION: No acute findings. POS: [facility]
[2017-08-11] MEDS ORDERED: Acetaminophen 500 MG TAB ONE (23:53)
[2017-08-12] MEDS ORDERED: Ondansetron ODT 4 MG TAB SL PRN (01:32)
[2017-08-12] MEDS ORDERED: Ondansetron HCl/PF 4 MG/2 ML Vial IVP PRN (01:32)
[2017-08-12] MEDS ORDERED: Acetaminophen 325 MG TAB PO PRN (01:32)
[2017-08-12 01:54] VITALS: BMI 25.3
[2017-08-12] MEDS: Sodium Chloride 0.9% 1,000 ML IV SCH ×2 (02:09→11:57)
[2017-08-12 03:18] LABS: Lactic Acid 1.3 mmol/L (0.5-2.2)
[2017-08-12] MEDS ORDERED: Dextrose 50% Abboject 50 ML SYRINGE SLOW IVP PRN (06:08)
[2017-08-12] MEDS ORDERED: HumaLOG 300 UNITS/3 ML VIAL SC PRN (06:08)
[2017-08-12] MEDS ORDERED: Dextrose 5% in Water 1,000 ML IV PRN (06:08)
[2017-08-12] MEDS ORDERED: Diazepam 5 MG TAB PO PRN (07:59)
[2017-08-12] MEDS ORDERED: Diazepam 5 MG TAB PO SCH (08:00)
[2017-08-12] MEDS ORDERED: Thiamine HCl 200 MG/2 ML VIAL IM SCH (08:30)
[2017-08-12] MEDS: Enoxaparin Sodium 30 MG/0.3 ML SYRINGE SC SCH (08:43)
[2017-08-12] MEDS: Ferrous Sulfate 325 MG TAB PO SCH (08:44)
[2017-08-12] MEDS: Multivitamin W/ Minerals 1 TAB PO SCH (08:44)
[2017-08-12] MEDS: Aspirin 81 mg Enteric Coated Tablet PO SCH (08:44)
[2017-08-12] MEDS: Gabapentin 300 MG CAP PO SCH ×3 (08:44→21:46)
[2017-08-12] MEDS: Folic Acid 1 MG TAB PO SCH (08:44)
[2017-08-12] MEDS: Atenolol 50 MG TAB PO SCH ×2 (08:44→21:45)
[2017-08-12] MEDS ORDERED: Multivitamin W/ Minerals 1 TAB PO SCH (09:00)
[2017-08-12] MEDS ORDERED: Folic Acid 1 MG TAB PO SCH (09:00)
--- NOTE | 2017-08-12 10:55 | HP ---
DATE OF ADMISSION: 08/12/2017 CHIEF COMPLAINT: Shaking and tremors. HISTORY OF PRESENT ILLNESS: This is a 62-year-old male with a known history of significant alcohol abuse, type 2 diabetes, who presented with a chief complaint of tremors and shaking. The patient states that he last had a drink earlier today and has a known history of alcohol withdrawal with delirium tremens. He states that he fell after having a drink. In the emergency department, he is found to be hypoglycemic with glucose of 53 point of care per ER report. Due to accompanying respirations of 20, temperature of 100, and heart rate of 126, we were asked for admission of this patient for systemic inflammatory response syndrome, rule out sepsis versus alcohol withdrawal. At the time of my evaluation, the patient has no new complaints. He reports the history as above. REVIEW OF SYSTEMS: As per HPI. CONSTITUTIONAL: No subjective fevers or chills per the patient at home. No recent weight changes that the patient is aware of. HEENT: No new dizziness, headache or vision changes. No new coughing. CARDIOVASCULAR: No new chest pain, chest pressure, left-sided arm numbness or tingling. Denies any episodes of diaphoresis. RESPIRATORY: Denies any shortness of breath, denies any dyspnea with exertion. Denies any recent upper respiratory type infection. Denies any nausea. Denies any vomiting. GASTROINTESTINAL: Denies any nausea. Denies any vomiting. Denies any issues with constipation or diarrhea. MUSCULOSKELETAL: Denies any recent issues with arthralgias or myalgias. Denies any recent falls, otherwise. PAST MEDICAL HISTORY: As per above includes the followin. Hypertension. 2. Type 2 diabetes. 3. Alcohol abuse and dependence. 4. Paroxysmal atrial fibrillation. 5. Diabetic neuropathy. 6. Relapsing chronic alcoholism. 7. Status post MRSA history. PAST SURGICAL HISTORY: 1. Status post prepatellar bursitis with drainage. 2. Status post left second and first toe amputation. HOME MEDICATIONS: Please see the EMR for full details. The patient denies any recent changes to his regimen in the last 4 weeks. The patient denies any new over the counter medications. Denies any new supplements, herbals or vitamins. FAMILY HISTORY: Significant for cardiovascular disease in his family. ALLERGIES: Include BUSPIRONE. SOCIAL HISTORY: The patient states he ate fifth of vodka last time anywhere from 1-3 days. The patient is unable to identify any triggers for alcohol use or triggers for alcohol relapse. The patient states that he has tried to quit 2 times in the last year. He states that he was recently in the emergency department and given a home taper of Ativan, but he is not quite sure if he took it appropriately. The patient states that he also ran out of alcohol today. Denies any tobacco or illicit drug use. The patient currently states that he wishes to be FULL CODE. PHYSICAL EXAMINATION: VITAL SIGNS: Temperature 98.3, heart rate 86, blood pressure 149/77, respirations 18, satting 96% on room air. GENERAL: The patient is awake, alert, appropriate, and conversant. Occasionally tearful when discussing his alcoholism. HEENT: Moist mucous membranes. Normocephalic, atraumatic. Equal ocular motions are intact. Pupils are equal and reactive. CARDIOVASCULAR: S1, S2. No murmurs, rubs or gallops. Pulses 2+ bilateral upper extremities, maybe trace bilateral pitting pedal edema. RESPIRATORY: Grossly clear to auscultation. No wheezes, rales or rhonchi. Reasonable air movement. ABDOMEN: Positive bowel sounds, soft, nontender to palpation. MUSCULOSKELETAL: Moving all 4 extremities equally. LABORATORY DATA AND IMAGING DATA: WBC 10.8, hemoglobin 13.8, hematocrit 41.5, and platelets 245. Sodium 138, potassium 5.3, chloride 104, bicarbonate 20, BUN 15, creatinine 1.04, glucose 56 initially, on repeat it is 121. Lactic acid initially was 3.4, subsequently 1.3. Total bilirubin 1.0, AST 20, ALT 13, alkaline phosphatase 101, serum creatinine of 352. UA significant for trace ketones and trace leukoesterase. Urine tox screen significant for benzodiazepines. I am not sure that this was drawn before or after administration of benzodiazepine in the emergency department. On 08/11/2017, chest x-ray demonstrates "no acute findings." ASSESSMENT AND PLAN: A 62-year-old male presenting with tremors. 1. Alcohol withdrawal. The patient is certainly at risk for alcohol withdrawal. He does have a history of with alcohol withdrawal delirium tremens. I have discussed alcohol cessation counseling with this patient at length today and he is essentially precontemplative of cessation. I have discussed with the patient that he runs the risk of imminent from either alcohol intoxication, alcohol withdrawal or long-term sequelae of heavy alcohol abuse. The patient is able to complete teach-back. He states that he is very depressed. 2. Question of systemic inflammatory response syndrome or sepsis. I suspect that this is mostly secondary to withdrawal phenomenon as status post IV fluid hydration and treatment of withdrawal symptoms with benzodiazepines. The patient's vital sign abnormalities and lactic acidosis, resolved. We will continue to monitor closely. If there are any signs or symptoms concerning for infection, we will have a low threshold for initiating empiric antibiotics, but currently I do not see an indication for empiric antibiotics at this time. 3. Hypoglycemia. I discussed with the patient. It appears that he has been having generally poor nutritional intake secondary to his alcoholism. We will encourage p.o. intake and closely monitor serum glucose. I will hold on anti- hyperglycemic regimen. 4. Hypertension, reasonable control. 5. Alcohol use as discussed above. 6. Diet: Diabetic. 7. Activity: As tolerated. 8. Deep venous thrombosis prophylaxis. Thank you for asking me to care for this patient. If you have any questions or concerns, contact me at [facility]. ROLANDO
[2017-08-12] MEDS: Lorazepam 1 MG TAB PO SCH (21:46)
[2017-08-13] MEDS ORDERED: Diazepam 5 MG TAB PO PRN (04:00)
[2017-08-13 04:53] LABS: #Eosinphils 0.3 thou/uL (0.0-0.7); #Lymphocytes 1.3 thou/uL (1.20-3.40); #Monocytes 0.4 thou/uL (0.11-0.59); #Neutrophils 3.6 thou/uL (1.40-6.50); %Basophils 0.4 % (0.0-1.0); %Eosinophils 4.6 % (0.0-10.0); %Lymphocytes 23.5 % (21.0-51.0); %Monocytes 7.4 % (0.0-10.0); %Neutrophils 64.2 % (42.0-75.0); Hemoglobin 11.5 g/dL (14.0-18.0); Mean Corpuscular HGB CONC 33.4 g/dL (32.0-36.0); Mean Corpuscular Volume 95.9 fl (80.0-94.0); Mean Platelet Volume 6.7 fL (7.4-10.4); Platelet Count 172 thou/uL (130-400); RBC Distribution Width 15.2 % (11.5-14.5); White Blood Cell (WBC) Count 5.6 thou/uL (4.8-10.8)
[2017-08-13 05:18] LABS: Anion Gap 12 mmol/L (10-20); BUN (Urea Nitrogen) 14 mg/dL (8.4-25.7); Calc. Creatinine Clearance 95 mL/min (70-130); Calcium 9.1 mg/dL (7.8-10.44); Carbon Dioxide 21 mmol/L (23-31); Chloride 108 mmol/L (98-107); Estimated GFR-MDRD 87; Glucose 132 mg/dL (80-115); Magnesium 1.8 mg/dL (1.6-2.6); Potassium 4.2 mmol/L (3.5-5.1); Sodium 137 mmol/L (136-145)
[2017-08-13] MEDS: Multivitamin W/ Minerals 1 TAB PO SCH (09:54)
[2017-08-13] MEDS: Gabapentin 300 MG CAP PO SCH ×3 (09:54→21:54)
[2017-08-13] MEDS: Magnesium Oxide 400 MG TAB PO SCH (09:54)
[2017-08-13] MEDS: Folic Acid 1 MG TAB PO SCH (09:55)
[2017-08-13] MEDS: Enoxaparin Sodium 30 MG/0.3 ML SYRINGE SC SCH (09:55)
[2017-08-13] MEDS: Aspirin 81 mg Enteric Coated Tablet PO SCH (09:55)
[2017-08-13] MEDS: Ferrous Sulfate 325 MG TAB PO SCH (09:55)
[2017-08-13] MEDS: Atenolol 50 MG TAB PO SCH ×2 (09:55→21:54)
[2017-08-13] MEDS: Lorazepam 1 MG TAB PO SCH ×3 (09:55→21:54)
--- NOTE | 2017-08-13 12:40 | PDOC.PN ---
- Subjective Encounter Start Date: 08/13/17 Encounter Start Time: 11:35 -: old records requested/rev Pt seen and examined, chart reviewed in its entirety. this ismy first visit during this stay with this patient No F/C, no N/V/D/c. no shakes or agitation, no new complaints 10 point ROS performed and neg for all systems except as per hPI - Objective Resuscitation Status: Resuscitation Status FULL:Full Resuscitation MAR Reviewed: Yes Vital Signs & Weight: Vital Signs (12 hours) Temp Pulse Resp BP BP Pulse Ox 08/13/17 11:05 98.7 F 69 18 134/71 96 08/13/17 09:55 85 163/85 H 08/13/17 08:15 163/85 H 08/13/17 07:55 97.8 F 85 16 163/85 H 95 08/13/17 04:50 98.7 F 78 18 170/81 H 96 08/13/17 04:00 170/81 H Weight Weight 172 lb 2.896 oz I&O: 08/12/17 08/13/17 08/14/17 06:59 06:59 06:59 Intake Total 850 600 Output Total 525 1325 Balance 325 -725 Result Diagrams: 08/13/17 04:41 08/13/17 04:41 Additional Labs: Accuchecks 08/13/17 08/13/17 08/12/17 11:13 05:09 20:43 POC Glucose 223 H 121 H 193 H 08/12/17 17:09 POC Glucose 121 H Phys Exam - Physical Examination Constitutional: NAD HEENT: PERRLA, moist MMs, sclera anicteric, oral pharynx no lesions Neck: no nodes, no JVD, supple, full ROM Respiratory: no wheezing, no rales, no rhonchi, clear to auscultation bilateral Cardiovascular: RRR, no significant murmur, no rub Gastrointestinal: soft, non-tender, no distention, positive bowel sounds Musculoskeletal: pulses present, edema present Neurological: non-focal, normal sensation, moves all 4 limbs Lymphatic: no nodes Psychiatric: normal affect, A&O x 3 Skin: no rash, normal turgor, cap refill <2 seconds Dx/Plan (1) Hypertension Code(s): I10 - ESSENTIAL (PRIMARY) HYPERTENSION Status: Chronic Qualifiers: Comment: Not at goal. Will resume Atenolol. (2) Macrocytic anemia Code(s): D53.9 - NUTRITIONAL ANEMIA, UNSPECIFIED Status: Chronic (3) Paroxysmal atrial fibrillation Code(s): I48.0 - PAROXYSMAL ATRIAL FIBRILLATION Status: Chronic Comment: not an anticoagulation candidate due to alcoholism (4) Type 2 diabetes mellitus with peripheral neuropathy Code(s): E11.42 - TYPE 2 DIABETES MELLITUS WITH DIABETIC POLYNEUROPATHY Status : Chronic Comment: home meds (5) Alcohol withdrawal syndrome Code(s): F10.239 - ALCOHOL DEPENDENCE WITH WITHDRAWAL, UNSPECIFIED Status: Resolved Qualifiers: Comment: scheduled ativan, decrease tomorrow to BID with PRN available based on elevated ASE scoring. (6) Chronic alcohol use Code(s): F10.10 - ALCOHOL ABUSE, UNCOMPLICATED Status: Resolved Comment: monday, btu spilled most of it, prior to that was monday, 48 hours post any alcohol, 96 hours after last signficant intake. Will monitor. Got thiamie and glucose in the field. Continue vitamin supplements, thiamine. (7) History of prostate cancer Code(s): Z85.46 - PERSONAL HISTORY OF MALIGNANT NEOPLASM OF PROSTATE Status: Chronic Comment: Encouraged to continue with urology outpatient - Plan cont current plan of care, PT/OT, out of bed/ambulate * .
[2017-08-14 07:56] VITALS: TEMP 97.6
[2017-08-14] MEDS: Magnesium Oxide 400 MG TAB PO SCH (10:24)
[2017-08-14] MEDS: Atenolol 50 MG TAB PO SCH (10:24)
[2017-08-14] MEDS: Lorazepam 1 MG TAB PO SCH (10:24)
[2017-08-14] MEDS: Folic Acid 1 MG TAB PO SCH (10:25)
[2017-08-14] MEDS: Enoxaparin Sodium 30 MG/0.3 ML SYRINGE SC SCH (10:25)
[2017-08-14] MEDS: Aspirin 81 mg Enteric Coated Tablet PO SCH (10:25)
[2017-08-14] MEDS: Gabapentin 300 MG CAP PO SCH (10:25)
[2017-08-14] MEDS: Multivitamin W/ Minerals 1 TAB PO SCH (10:25)
[2017-08-14] MEDS: Ferrous Sulfate 325 MG TAB PO SCH (10:25)
[2017-08-14 14:46] VITALS: BP 159/85
--- NOTE | 2017-08-15 09:56 | DIS ---
DATE OF ADMISSION: 08/11/2017 DATE OF DISCHARGE: 08/14/2017 PRIMARY CARE PHYSICIAN: Danny Lu M.D. DISCHARGE DIAGNOSES: 1. Chronic alcohol abuse. 2. Alcohol withdrawal with symptoms. No change in mental status. 3. Hypertension. 4. Diabetes. 5. Paroxysmal atrial fibrillation. 6. Diabetic neuropathy. 7. Probable depression. CONSULTATIONS: None. PROCEDURES: None. HISTORY AND PHYSICAL: Mr. Tran is a 62-year-old gentleman well known to me from previous admissions who comes and complains of tremors and shaking. He supposedly had a drink the day of admission, but tells me that he has filled most of it. Last drink prior to that was 2 days before. He subsequently fell because of the tremors and came to the emergency department. There, he was found to be hypoglycemic with glucose of 53. Rest of his vitals was fairly normal except for heart rate of 126 and temperature 100 and we were called for admission. HOSPITAL COURSE: The patient was seen and examined by Dr. Ruggiero and placed in observation. The patient was placed on the A.S.E. protocol. Continued on home medications. Overnight, the patient did fair but still had shakes that despite ASE protocol. He was put on scheduled Ativan the next morning and did better through the day of 08/13/2017. Whenever his current condition was brought up, patient became tearful. He repeatedly explained that this is the first time that he ever lives alone, and that since his mother about a year ago. He still gets tearful and never really having gotten over it. He was prescribed antidepressant by me last time , but he whatever reason was not taking them. He has talked with Dr. Lu about this in the past and Dr. Lu wanted him evaluated by him prior to be able to start him on an antidepressant, but has not made that appointment yet. Overnight 08/13/2017 to 08/14/2017, the patient did well. Today, he was at baseline. He was not willing to go to a long-term facility, and is interested in looking into rehab facilities possibly, but states he has been in them twice and they did not seem to help. Also, he states [facility] is not helping him. We discussed with case management who recommended outpatient evaluation with [facility] involuntary admission to the facility, she was at that time. Otherwise, the patient was stable for discharge. PHYSICAL EXAMINATION: The patient was seen and examined on the day of discharge. Discharge plan disposition discussed with the patient at the bedside. DISCHARGE MEDICATIONS: 1. Aspirin 81 mg daily. 2. Atenolol 50 mg p.o. b.i.d. 3. Iron sulfate 325 mg daily. 4. Folic acid 1 mg daily. 5. Thiamine 100 mg daily. 6. Multivitamin daily. 7. Ativan 1 mg p.o. t.i.d. p.r.n. anxiety, prescription for 10 tablets with no refills given. 8. Glyburide 2.5 mg p.o. q.a.m. to resume. 9. Neurontin 300 mg p.o. t.i.d. FOLLOWUP APPOINTMENTS 1. Dr. Lu within a week. 2. [facility] per the patient's schedule. DISCHARGE CONDITION: Stable. DISPOSITION: He will be discharged home via private vehicle. DISCHARGE ACTIVITY: The patient was encouraged to stop drinking. DISCHARGE DIET: Heart healthy recommended, diabetic diet recommended, no alcohol. MTDD
--- NOTE | 2017-09-02 21:17 | EKG ---
Test Reason : Blood Pressure : / mmHG Vent. Rate : 126 BPM Atrial Rate : 126 BPM P-R Int : 132 ms QRS Dur : 076 ms QT Int : 304 ms P-R-T Axes : 024 021 027 degrees QTc Int : 440 ms Sinus tachycardia Anterior infarct , age undetermined Abnormal ECG Marked Artifact Confirmed by FORTINO MONTEIRO MD ([id number]), art editor EMILIANA OROSCO ([id number]) on 09/02/2017 9:16:47 PM Referred By: Confirmed By:FORTINO MONTEIRO MD
== END 2017-08-14 14:10 | disposition home health service (06) ==
LOC: ERS 20:42 → 2NO 23:23
PROVIDERS: ADMIT Internal Medicine; ATTEND Internal Medicine
DX: F10.239 Alcohol dependence with withdrawal, unspecified (principal); I10 Essential (primary) hypertension; I48.0 Paroxysmal atrial fibrillation; E11.40 Type 2 diabetes mellitus with diabetic neuropathy, unspecified; E11.649 Type 2 diabetes mellitus with hypoglycemia without coma; Z79.82 Long term (current) use of aspirin; Z79.84 Long term (current) use of oral hypoglycemic drugs; Z79.899 Other long term (current) drug therapy; Z88.8 Allergy status to other drugs, medicaments and biological substances; W19.XXXA Unspecified fall, initial encounter
CPT/HCPCS: 71045; 80048; 80053; 80306; 80307; 82550; 82962 ×3; 83605 ×2; 83735; 85025 ×2; 93005; 96361; 96365; 96366 ×2; 96367; 96372 ×3; 96375; 96376; 97110; 97116; 97139 ×5; 97530; 99285; G0378 ×2; G8978; G8979; G8980; G8987; G8988; G8989; 36415; 36416; 81003; 81015; A4353; J1650; J2060; J3411; J3475; J7042; J7050

== ENCOUNTER 2018-06-15 07:45 | Day surgery (SDC) | payer MEDICARE ==
[2018-06-14 11:23] VITALS: BMI 27.9
[2018-06-15] MEDS ORDERED: Clindamycin/D5W 900 mg/50 ml Premix Bag ONE (08:22)
[2018-06-15] MEDS ORDERED: Neomycin-Polymyxin 1 ML AMP ONE (10:25)
[2018-06-15] MEDS ORDERED: Bupivacaine PF 0.5% 30 ML VIAL ONE (10:25)
[2018-06-15] MEDS ORDERED: Midazolam HCl 2 mg/2 ml Vial ONE (10:32)
[2018-06-15] MEDS ORDERED: Fentanyl 100 MCG/2 ML VIAL ONE (10:32)
--- NOTE | 2018-06-15 13:45 | RAD ---
RADIOGRAPH LEFT FOOT TWO VIEWS: 06/15/2018 12:04 p.m. HISTORY: A 63-year-old male, status post amputation of the left toes. COMPARISON: 10/28/2015 FINDINGS: There has been interval surgical removal of the first proximal and distal phalanges. There has been interval amputation at the proximal metaphyses of the second and third proximal phalanges. There is diffuse osteopenia. No destructive osseous lesion is identified. IMPRESSION: 1. 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 2. Status post amputations at the proximal metaphyses of the 2nd and 3rd proximal phalanges. 3. Diffuse osteopenia. POS: CLARA
--- NOTE | 2018-06-15 13:51 | RAD ---
RADIOGRAPH RIGHT FOOT 2 VIEWS: DATE: 06/15/2018. HISTORY: Status post bone excision in a 63-year-old male. COMPARISON: No prior right foot radiographs. FINDINGS: Diffuse osteopenia. Multiple large subchondral cysts at the 1st metatarsal head. Old, healed, displ aced spiral fracture deformity of the right 5thmetatarsal, from the mid diaphysis to the distal metap hysis. Mild to moderate DJD at 1st MTP. Moderate DJD at 1st IP. Absence of the 3rd distal phalanx, 3rd middle phalanx and head of 3rd proximal phalanx. IMPRESSION: 1. Status post amputation at neck of proximal phalanx of 3rd toe. 2. 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 3. Old, healed fracture of right 5th metatarsal shaft. POS: GONZÁLEZ
--- NOTE | 2018-06-15 15:56 | OP ---
DATE OF PROCEDURE: 06/15/2018 PREOPERATIVE DIAGNOSES: 1. Ulceration to the left hallux amputation stump with excess bone pressure point. 2. Osteomyelitis, right third toe distal phalanx. POSTOPERATIVE DIAGNOSES: 1. Ulceration to the left hallux amputation stump with excess bone pressure point. 2. Osteomyelitis, right third toe distal phalanx. PROCEDURES PERFORMED: 1. Removal of base of the proximal phalanx of the left hallux amputation site. 2. Amputation through the proximal phalanx of the right third digit. ANESTHESIA: Local with monitored anesthetic care. HEMOSTASIS: Pneumatic tourniquet about bilateral ankles at 250 mmHg. ESTIMATED BLOOD LOSS: None. MATERIALS: 1. 3-0 nylon. 2. 4-0 Vicryl. INJECTABLES: A total of 11 mL of 0.5% Marcaine plain. COMPLICATIONS: None. DESCRIPTION OF PROCEDURE: The patient was brought to the operative room suite, placed supine on the operative table. Time-out performed, identifying correct patient, procedure, and operative site. Well-padded tourniquet placed about bilateral ankles. Feet were prepped and draped in an aseptic manner. Procedure #1: Attention directed to the left foot. Tourniquet was raised. A 3 cm linear longitudinal incision made over the distal amputation stump. Sharp and blunt dissection through subcutaneous tissues avoiding vital structures, ligated bleeders as necessary. Removal of the proximal phalanx remaining portion in toto. The head of the first metatarsal was evaluated, noted to be in viable condition. Cartilage was removed from the head of the first metatarsal to prevent dehiscence of the wound. Wound was irrigated with sterile saline mixed with irrigant. Subcutaneous tissue was repaired with 4-0 Vicryl, skin with 3-0 nylon, bandages were then applied with Xeroform gauze, roll gauze, an Eloy bandage, and the foot was covered before proceeding to the next procedure. Procedure #2: Attention directed to the right third digit and tourniquet was raised. A fishmouth incision around the proximal interphalangeal joint, sharp and blunt dissection, and the distal aspect of toe was amputated in toto and sent for pathological evaluation. Evaluation of the proximal phalanx head showed that it was white, glistening, and hard. No signs of infection. The head was resected to facilitate closure. The wound was irrigated with sterile saline mixed with irrigant. Subcutaneous tissues reapproximated with 4-0 Vicryl, skin with 3-0 nylon. Bandages applied including Xeroform gauze, roll gauze, and Eloy bandage. Tourniquet was released, noted immediate hyperemia to the distal aspect of all toes bilaterally. The patient tolerated the procedure and anesthesia well. He was transferred out of the operative suit. Vital signs stable. Neurovascular status intact. We kept for a short period of monitoring and discharged home with aftercare instructions and follow up with me in one week. Job ID: [id number]
[2018-06-15] MEDS ORDERED: ePHEDrine/0.9% NaCl/PF SYRINGE 50 mg/10 ml ONE (16:32)
[2018-06-15] MEDS ORDERED: Ondansetron PF 4 MG/2 ML Vial ONE (16:32)
[2018-06-15] MEDS ORDERED: Dexamethasone 20 MG/5 ML VIAL ONE (16:32)
[2018-06-15] MEDS ORDERED: PROPOFOL 200 MG/20 ML VIAL ONE (16:32)
[2018-06-15] MEDS ORDERED: Lidocaine 1% PF 5 ML VIAL ONE (16:32)
[2018-06-15] MEDS ORDERED: PHENYLEPHRINE-NS 100 MCG/ML 10 ML SYRINGE ONE (16:32)
--- NOTE | 2018-06-15 21:15 | EKG ---
Test Reason : PREOP Blood Pressure : / mmHG Vent. Rate : 054 BPM Atrial Rate : 054 BPM P-R Int : 160 ms QRS Dur : 078 ms QT Int : 434 ms P-R-T Axes : 031 010 017 degrees QTc Int : 411 ms Sinus bradycardia Septal infarct (cited on or before 20-JUL-2017) Abnormal ECG When compared with ECG of 11-AUG-2017 21:22, Vent. rate has decreased BY 72 BPM Questionable change in initial forces of Anterior leads ST elevation has replaced ST depression in Lateral leads Confirmed by Sonia BILL ([id number]) on 06/15/2018 9:15:32 PM Referred By: MACY Confirmed By:Sonia BILL
== END 2018-06-15 15:08 | disposition home or self-care (01) ==
LOC: SDC 07:45
PROVIDERS: ATTEND Podiatrist Foot & Ankle Surgery
PROC: 0Y6T0Z1 Detachment at Right 3rd Toe, High, Open Approach (ICD-10-PCS; principal; 2018-06-15)
PROC: 0QBR0ZZ Excision of Left Toe Phalanx, Open Approach (ICD-10-PCS; 2018-06-15)
DX: E11.69 Type 2 diabetes mellitus with other specified complication (principal); M86.671 Other chronic osteomyelitis, right ankle and foot; M86.8X7 Other osteomyelitis, ankle and foot; E11.621 Type 2 diabetes mellitus with foot ulcer; L97.529 Non-pressure chronic ulcer of other part of left foot with unspecified severity; L97.519 Non-pressure chronic ulcer of other part of right foot with unspecified severity; I10 Essential (primary) hypertension; F32.9 Major depressive disorder, single episode, unspecified; E11.42 Type 2 diabetes mellitus with diabetic polyneuropathy; K21.9 Gastro-esophageal reflux disease without esophagitis; I48.0 Paroxysmal atrial fibrillation; M85.80 Other specified disorders of bone density and structure, unspecified site; Z79.82 Long term (current) use of aspirin; Z79.84 Long term (current) use of oral hypoglycemic drugs; Z79.899 Other long term (current) drug therapy; Z88.8 Allergy status to other drugs, medicaments and biological substances; Z89.412 Acquired absence of left great toe; Z98.84 Bariatric surgery status
CPT/HCPCS: 36416; 88305; 88311; 93005; 93010; J1100; J2001; J2250; J2405; J2704; J3010; J3490; S0020

== ENCOUNTER 2019-09-03 10:06 | Outpatient (CLI) | payer MEDICARE, OTHER ==
--- NOTE | 2019-09-03 11:30 | RAD ---
LEFT FOOT 3 VIEWS: Date: 09/03/2019 COMPARISON: None. HISTORY: Non-pressure chronic ulcer. FINDINGS: The patient is status post amputation of the first toe at the metatarsophalangeal joint. The patient is status post amputation of the second and third toes at the base of the proximal phalanx. There is soft tissue swelling along the dorsal aspect of the midfoot and forefoot. No subcutaneous gas or radi opaque foreign body. No acute fracture or evidence of dislocation. If there is clinical concern for o steomyelitis, MRI advised. IMPRESSION: Nonspecific soft tissue swelling. Multifocal postoperative change. If there is concern for osteomyeli tis, MRI advised. POS: HUBERT
== END 2019-09-03 10:07 | disposition home or self-care (01) ==
LOC: BICRAD 10:06
PROVIDERS: ATTEND Physician Assistant
DX: L97.522 Non-pressure chronic ulcer of other part of left foot with fat layer exposed (principal); L03.116 Cellulitis of left lower limb; M79.89 Other specified soft tissue disorders; Z98.890 Other specified postprocedural states
CPT/HCPCS: 36415; 80053; 85025; 86140; 87070; 87077; 87186; 87205

== ENCOUNTER 2021-10-05 15:06 | Inpatient (IN) | payer MEDICARE, OTHER ==
[2021-10-05 16:52] LABS: #Eosinphils 0.1 thou/uL (0.0-0.7); #Monocytes 0.7 thou/uL (0.11-0.59); #Neutrophils 7.3 thou/uL (1.40-6.50); %Basophils 0.2 % (0.0-1.0); %Eosinophils 1.5 % (0.0-10.0); %Lymphocytes 11.4 % (21.0-51.0); %Monocytes 7.1 % (0.0-10.0); %Neutrophils 79.8 % (42.0-75.0); Hemoglobin 12.2 g/dL (14.0-18.0); Mean Corpuscular HGB CONC 33.1 g/dL (32.0-36.0); Mean Corpuscular Hemoglobin 31.4 pg (27.0-31.0); Platelet Count 352 thou/uL (130-400); RBC Distribution Width 11.5 % (11.5-14.5); Red Blood Cell (RBC) Count 3.87 mill/uL (4.70-6.10); White Blood Cell (WBC) Count 9.1 thou/uL (4.8-10.8)
[2021-10-05] MEDS ORDERED: Acetaminophen 500 MG TAB ONE (17:01)
[2021-10-05] MEDS ORDERED: Cefepime 2 GM VIAL ONE (17:01)
[2021-10-05 17:10] LABS: ALT (SGPT) 10 U/L (8-55); AST (SGOT) 13 U/L (5-34); Albumin 3.7 g/dL (3.4-4.8); Alkaline Phosphatase 80 U/L (40-110); Anion Gap 16 mmol/L (10-20); BUN (Urea Nitrogen) 55 mg/dL (8.4-25.7); Bilirubin, Total 0.3 mg/dL (0.2-1.2); Calc. Creatinine Clearance 0 mL/min (70-130); Calcium 9.3 mg/dL (7.8-10.44); Carbon Dioxide 22 mmol/L (23-31); Chloride 104 mmol/L (98-107); Potassium 5.4 mmol/L (3.5-5.1); Protein, Total 7.7 g/dL (5.8-8.1); Sodium 137 mmol/L (136-145)
[2021-10-05 17:15] LABS: Glucose 53 mg/dL (80-115)
[2021-10-05] MEDS ORDERED: Vancomycin 1 GM in Premix Bag 1 BAG IVPB SCH (17:15)
[2021-10-05] MEDS ORDERED: Dextrose 50% Abboject 50 ML SYRINGE SLOW IVP PRN (18:20)
[2021-10-05] MEDS ORDERED: Morphine 4 MG/ML VIAL SLOW IVP PRN (18:20)
[2021-10-05] MEDS ORDERED: hydrALAZINE 20 MG/ML VIAL SLOW IVP PRN (18:20)
[2021-10-05] MEDS ORDERED: Morphine 2 MG/ML VIAL SLOW IVP PRN (18:20)
[2021-10-05] MEDS ORDERED: Dextrose 5% in Water 1,000 ML IV PRN (18:20)
[2021-10-05] MEDS ORDERED: Dextrose 5 %-0.45 % NaCl 1,000 ML IV SCH ×2 (18:30→18:39)
[2021-10-05] MEDS ORDERED: Acetaminophen 500 MG TAB PO PRN (18:43)
[2021-10-05 20:14] VITALS: BMI 29.0
[2021-10-05 20:54] LABS: Anion Gap 14 mmol/L (10-20); BUN (Urea Nitrogen) 56 mg/dL (8.4-25.7); Calc. Creatinine Clearance 47 mL/min (70-130); Calcium 8.5 mg/dL (7.8-10.44); Carbon Dioxide 20 mmol/L (23-31); Glucose 210 mg/dL (80-115); Potassium 5.2 mmol/L (3.5-5.1); Sodium 134 mmol/L (136-145)
[2021-10-05 21:01] LABS: Chloride 105 mmol/L (98-107)
[2021-10-05] MEDS: Dextrose 5 % And 0.9 % NaCl 1,000 ML IV SCH ×2 (21:20→21:21)
[2021-10-05] MEDS: Gabapentin 300 MG CAP PO SCH (21:23)
[2021-10-05] MEDS: traMADol HCl 50 MG TAB PO PRN (21:23)
[2021-10-05] MEDS: Famotidine 20 MG TAB PO SCH (21:24)
[2021-10-05] MEDS: Enoxaparin Sodium 30 MG/0.3 ML SYRINGE SC SCH (21:24)
[2021-10-05] MEDS: Atenolol 50 MG TAB PO SCH (21:24)
[2021-10-05] MEDS: HumaLOG 300 UNITS/3 ML VIAL SC PRN (21:24)
[2021-10-05] MEDS: Vancomycin HCl 1.5 GM in Sodium Chloride 0.9% 250 ML 300 ML IVPB SCH (21:27)
[2021-10-05 23:39] LABS: SARS-CoV-2 NAA Rapid Test Not Detected (NotDetected)
[2021-10-06] MEDS: HumaLOG 300 UNITS/3 ML VIAL SC PRN ×2 (00:15→21:15)
[2021-10-06] MEDS: Cefepime 2 GM in Sodium Chloride 0.9% 100 ML IVPB SCH ×2 (05:10→18:25)
[2021-10-06 06:06] LABS: #Eosinphils 0.2 thou/uL (0.0-0.7); #Lymphocytes 1.1 thou/uL (1.20-3.40); #Monocytes 0.7 thou/uL (0.11-0.59); #Neutrophils 5.2 thou/uL (1.40-6.50); %Basophils 0.4 % (0.0-1.0); %Eosinophils 2.9 % (0.0-10.0); %Lymphocytes 14.6 % (21.0-51.0); %Monocytes 10.1 % (0.0-10.0); Hemoglobin 10.9 g/dL (14.0-18.0); Mean Corpuscular HGB CONC 32.9 g/dL (32.0-36.0); Mean Corpuscular Hemoglobin 31.6 pg (27.0-31.0); Mean Corpuscular Volume 95.9 fL (78.0-98.0); Mean Platelet Volume 6.2 fL (7.4-10.4); Platelet Count 301 thou/uL (130-400); RBC Distribution Width 11.3 % (11.5-14.5); Red Blood Cell (RBC) Count 3.47 mill/uL (4.70-6.10); White Blood Cell (WBC) Count 7.2 thou/uL (4.8-10.8)
[2021-10-06 06:11] LABS: Hemoglobin A1c 6.9 % (4.0-6.0)
[2021-10-06 06:33] LABS: ALT (SGPT) 8 U/L (8-55); AST (SGOT) 11 U/L (5-34); Albumin 3.1 g/dL (3.4-4.8); Alkaline Phosphatase 69 U/L (40-110); Anion Gap 15 mmol/L (10-20); BUN (Urea Nitrogen) 54 mg/dL (8.4-25.7); Bilirubin, Total 0.3 mg/dL (0.2-1.2); Calc. Creatinine Clearance 59 mL/min (70-130); Calcium 8.4 mg/dL (7.8-10.44); Carbon Dioxide 21 mmol/L (23-31); Chloride 106 mmol/L (98-107); Globulin 3.6 g/dL (2.4-3.5); Glucose 87 mg/dL (80-115); Potassium 4.7 mmol/L (3.5-5.1); Protein, Total 6.7 g/dL (5.8-8.1); Sodium 137 mmol/L (136-145)
[2021-10-06] MEDS ORDERED: Ferrous Sulfate 325 MG TAB PO SCH ×3 (08:00→09:00)
[2021-10-06] MEDS: Aspirin 81 mg Enteric Coated Tablet PO SCH ×2 (08:52)
[2021-10-06] MEDS: Multivit, Therapeutic 1 TAB PO SCH (08:53)
[2021-10-06] MEDS: Gabapentin 300 MG CAP PO SCH ×3 (08:55→21:15)
[2021-10-06] MEDS: Atenolol 50 MG TAB PO SCH ×2 (10:13→21:12)
[2021-10-06] MEDS ORDERED: fentaNYL Citrate/PF 100 MCG/2 ML SYRINGE ONE (10:15)
[2021-10-06] MEDS ORDERED: Lidocaine 2% Jelly 5 ML TUBE ONE (10:15)
[2021-10-06] MEDS ORDERED: Lidocaine 1% w/Epinephrine 1:100K 20 ML VIAL ONE (10:33)
[2021-10-06] MEDS ORDERED: Bupivacaine PF 0.5% 30 ML VIAL ONE (10:33)
[2021-10-06] MEDS ORDERED: Midazolam HCl 2 mg/2 ml Vial ONE (10:34)
[2021-10-06] MEDS ORDERED: PROPOFOL 200 MG/20 ML VIAL ONE (10:36)
[2021-10-06] MEDS ORDERED: ePHEDrine 50 MG/ML VIAL ONE (10:36)
[2021-10-06] MEDS ORDERED: Glycopyrrolate 0.2 MG/ML 5 ML SYRINGE ONE (10:36)
[2021-10-06] MEDS ORDERED: Lidocaine 1% PF 5 ML VIAL ONE (10:36)
[2021-10-06] MEDS ORDERED: Promethazine HCl 25 MG/ML VIAL IM PRN (11:46)
[2021-10-06] MEDS ORDERED: Ondansetron HCl/PF 4 MG/2 ML Vial IVP PRN (11:46)
[2021-10-06] MEDS ORDERED: HYDROmorphone 2 MG/ML VIAL SLOW IVP PRN (11:46)
[2021-10-06] MEDS ORDERED: Promethazine HCl 25 MG/ML VIAL IVPB PRN (11:46)
[2021-10-06] MEDS: Dextrose 5 % And 0.9 % NaCl 1,000 ML IV SCH ×2 (14:44→21:16)
[2021-10-06] MEDS ORDERED: GUAIFENESIN SF SOLN 200 MG/10 ML UDCUP PO PRN (18:08)
[2021-10-06] MEDS: Enoxaparin Sodium 30 MG/0.3 ML SYRINGE SC SCH (21:15)
[2021-10-06] MEDS: Famotidine 20 MG TAB PO SCH (21:15)
[2021-10-06] MEDS: Benzonatate 100 MG CAP PO SCH (21:15)
[2021-10-06] MEDS: traMADol HCl 50 MG TAB PO PRN (21:16)
[2021-10-06] MEDS: Vancomycin HCl 1.5 GM in Sodium Chloride 0.9% 250 ML 300 ML IVPB SCH (21:16)
[2021-10-06] MEDS ORDERED: Melatonin 3 MG TAB PO PRN (21:41)
[2021-10-07] MEDS: Cefepime 2 GM in Sodium Chloride 0.9% 100 ML IVPB SCH ×2 (05:47→17:38)
[2021-10-07 06:36] LABS: Anion Gap 15 mmol/L (10-20); BUN (Urea Nitrogen) 29 mg/dL (8.4-25.7); Calc. Creatinine Clearance 90 mL/min (70-130); Calcium 8.4 mg/dL (7.8-10.44); Carbon Dioxide 20 mmol/L (23-31); Chloride 109 mmol/L (98-107); Glucose 74 mg/dL (80-115); Potassium 5.2 mmol/L (3.5-5.1); Sodium 139 mmol/L (136-145)
[2021-10-07 06:40] LABS: #Eosinphils 0.4 thou/uL (0.0-0.7); #Lymphocytes 1.5 thou/uL (1.20-3.40); #Monocytes 0.6 thou/uL (0.11-0.59); %Basophils 0.3 % (0.0-1.0); %Eosinophils 5.9 % (0.0-10.0); %Lymphocytes 23.5 % (21.0-51.0); %Monocytes 9.1 % (0.0-10.0); %Neutrophils 61.2 % (42.0-75.0); Hemoglobin 9.8 g/dL (14.0-18.0); Mean Corpuscular HGB CONC 33.5 g/dL (32.0-36.0); Mean Corpuscular Hemoglobin 32.2 pg (27.0-31.0); Mean Corpuscular Volume 96.2 fL (78.0-98.0); Mean Platelet Volume 6.1 fL (7.4-10.4); Platelet Count 269 thou/uL (130-400); RBC Distribution Width 11.1 % (11.5-14.5); Red Blood Cell (RBC) Count 3.03 mill/uL (4.70-6.10); White Blood Cell (WBC) Count 6.5 thou/uL (4.8-10.8)
[2021-10-07] MEDS: Aspirin 81 mg Enteric Coated Tablet PO SCH (08:34)
[2021-10-07] MEDS: Benzonatate 100 MG CAP PO SCH ×3 (08:34→20:25)
[2021-10-07] MEDS: Multivit, Therapeutic 1 TAB PO SCH (08:34)
[2021-10-07] MEDS: Atenolol 50 MG TAB PO SCH ×2 (08:34→20:25)
[2021-10-07] MEDS: Ferrous Sulfate 325 MG TAB PO SCH (08:34)
[2021-10-07] MEDS: Gabapentin 300 MG CAP PO SCH ×3 (08:35→20:25)
[2021-10-07] MEDS: Dextrose 5 % And 0.9 % NaCl 1,000 ML IV SCH (12:19)
[2021-10-07 20:19] LABS: Vancomycin, Trough 15.6 ug/mL
[2021-10-07] MEDS: Enoxaparin Sodium 30 MG/0.3 ML SYRINGE SC SCH (20:24)
[2021-10-07] MEDS: traMADol HCl 50 MG TAB PO PRN (20:29)
[2021-10-07] MEDS: Vancomycin HCl 1.5 GM in Sodium Chloride 0.9% 250 ML 300 ML IVPB SCH (20:47)
[2021-10-07] MEDS ORDERED: Meropenem 1 GM in Sodium Chloride 0.9% 100 ML IVPB SCH (22:00)
[2021-10-07] MEDS: Famotidine 20 MG TAB PO SCH (22:27)
[2021-10-08] MEDS: Dextrose 5 % And 0.9 % NaCl 1,000 ML IV SCH (02:56)
[2021-10-08 05:31] LABS: #Eosinphils 0.7 thou/uL (0.0-0.7); #Lymphocytes 1.5 thou/uL (1.20-3.40); #Monocytes 0.6 thou/uL (0.11-0.59); #Neutrophils 4.3 thou/uL (1.40-6.50); %Basophils 0.6 % (0.0-1.0); %Eosinophils 9.5 % (0.0-10.0); %Lymphocytes 20.7 % (21.0-51.0); %Monocytes 8.1 % (0.0-10.0); %Neutrophils 61.1 % (42.0-75.0); Hemoglobin 9.7 g/dL (14.0-18.0); Mean Corpuscular HGB CONC 33.1 g/dL (32.0-36.0); Mean Corpuscular Hemoglobin 32.1 pg (27.0-31.0); Mean Platelet Volume 5.9 fL (7.4-10.4); Platelet Count 308 thou/uL (130-400); RBC Distribution Width 11.1 % (11.5-14.5); Red Blood Cell (RBC) Count 3.03 mill/uL (4.70-6.10); White Blood Cell (WBC) Count 7.1 thou/uL (4.8-10.8)
[2021-10-08 05:51] LABS: Anion Gap 14 mmol/L (10-20); BUN (Urea Nitrogen) 19 mg/dL (8.4-25.7); Calc. Creatinine Clearance 102 mL/min (70-130); Calcium 8.9 mg/dL (7.8-10.44); Carbon Dioxide 22 mmol/L (23-31); Chloride 106 mmol/L (98-107); Glucose 91 mg/dL (80-115); Potassium 5.6 mmol/L (3.5-5.1); Sodium 136 mmol/L (136-145)
[2021-10-08] MEDS ORDERED: Meropenem 1 GM in Sodium Chloride 0.9% 100 ML IVPB SCH (06:00)
[2021-10-08] MEDS: Atenolol 50 MG TAB PO SCH (08:16)
[2021-10-08] MEDS: Famotidine 20 MG TAB PO SCH (08:16)
[2021-10-08] MEDS: Benzonatate 100 MG CAP PO SCH ×2 (08:16→14:49)
[2021-10-08] MEDS: Aspirin 81 mg Enteric Coated Tablet PO SCH (08:16)
[2021-10-08] MEDS: Multivit, Therapeutic 1 TAB PO SCH (08:16)
[2021-10-08] MEDS: Ferrous Sulfate 325 MG TAB PO SCH (08:16)
[2021-10-08] MEDS: Gabapentin 300 MG CAP PO SCH ×2 (08:16→14:49)
[2021-10-08] MEDS ORDERED: LOKELMA 10 GM PACKET PO SCH (10:00)
[2021-10-08] MEDS ORDERED: Amoxicillin/Potassium Clav 875 MG TAB PO SCH ×2 (10:15→21:00)
[2021-10-08 11:40] VITALS: BP 129/70; TEMP 98.1
== END 2021-10-08 14:55 | disposition home or self-care (01) | DRG 464 ==
LOC: ERS 15:06 → SURG A 17:35
PROVIDERS: ADMIT Specialist; ATTEND Hospitalist
PROC: 0JBR0ZZ Excision of Left Foot Subcutaneous Tissue and Fascia, Open Approach (ICD-10-PCS; principal; 2021-10-06)
PROC: 0Y6Q0Z1 Detachment at Left 1st Toe, High, Open Approach (ICD-10-PCS; 2021-10-06)
PROC: 0Y6U0Z1 Detachment at Left 3rd Toe, High, Open Approach (ICD-10-PCS; 2021-10-06)
PROC: 0Y6S0Z1 Detachment at Left 2nd Toe, High, Open Approach (ICD-10-PCS; 2021-10-06)
DX: T87.44 Infection of amputation stump, left lower extremity (principal); L03.116 Cellulitis of left lower limb; L02.612 Cutaneous abscess of left foot; N17.9 Acute kidney failure, unspecified; E11.52 Type 2 diabetes mellitus with diabetic peripheral angiopathy with gangrene; E11.628 Type 2 diabetes mellitus with other skin complications; Z20.822 Contact with and (suspected) exposure to COVID-19; F32.A Depression, unspecified; I10 Essential (primary) hypertension; I48.0 Paroxysmal atrial fibrillation; Y83.8 Other surgical procedures as the cause of abnormal reaction of the patient, or of later complication, without mention of misadventure at the time of the procedure; E11.42 Type 2 diabetes mellitus with diabetic polyneuropathy; D53.9 Nutritional anemia, unspecified; E11.649 Type 2 diabetes mellitus with hypoglycemia without coma; Z88.1 Allergy status to other antibiotic agents; Z88.8 Allergy status to other drugs, medicaments and biological substances; Z79.899 Other long term (current) drug therapy; Z79.84 Long term (current) use of oral hypoglycemic drugs; Z85.46 Personal history of malignant neoplasm of prostate
CPT/HCPCS: 36415; 36416; 80048; 80053; 80202; 83036; 83605; 85025; 87040; 87077; 87149; 87186; 88305; J0692; J1650; J1815; J2185; J2250; J2270; J2704; J3370; J3490; J7042; J7050; S0020; U0002